=== PATIENT | male | born 1945 | race Caucasian/White ===

== ENCOUNTER 2017-01-14 10:39 | Inpatient (IN) | payer MEDICARE ==
[2017-01-09 14:56] VITALS: BMI 35.9
[~2017-01-14 10:39] MED LIST: LIDOCAINE 1% 20 ML VIAL (10MG/ML) FOR IV START INTRADERMA PRN
[2017-01-14] MEDS: PHENYLEPHRINE 10% OPHTH DROPS 5 ML BTL OP ONE ×4 (12:55→22:06)
[2017-01-14] MEDS: CYCLOPENTOLATE 1% OPHTH SOLN 2 ML BTL OP ONE ×4 (12:57→22:05)
[2017-01-14] MEDS: KETOROLAC 0.5% OPHTH DROPS 3 ML BTL OP ONE ×4 (12:59→22:06)
[2017-01-14] MEDS ORDERED: LIDOCAINE 1% 20 ML VIAL (10MG/ML) FOR IV START INTRADERMA ONE (13:21)
[2017-01-14] MEDS ORDERED: LACTATED RINGERS 1,000 ML IV ONE (13:28)
[2017-01-14 13:29] LABS: Glucose,Whole Blood 93 mg/dL (75-99)
[2017-01-14] MEDS ORDERED: fentaNYL (PF) 50 MCG/ML 2 ML AMP ONE (14:17)
[2017-01-14] MEDS ORDERED: MIDAZOLAM 2 MG/2 ML VIAL ONE (14:17)
[2017-01-14] MEDS ORDERED: ESMOLOL 100 MG/10 ML VIAL IV ONE (14:40)
[2017-01-14] MEDS ORDERED: METOPROLOL TARTRATE 5 MG/5 ML VIAL IVP ONE (14:50)
[2017-01-14] MEDS ORDERED: LABETALOL 5 MG/ML VIAL MDV IVP ONE (15:00)
[2017-01-14] MEDS ORDERED: LABETALOL SYRINGE 5 MG/ML IVP ONE ×2 (15:00→15:30)
--- NOTE | 2017-01-14 15:10 | P.OP ---
Date of Procedure: 01/14/17 Procedure(s) Performed: The patient was scheduled for cataract surgery of the left eye. He was brought into the operating room. It was noted during his short time in the operating room that his blood pressure was elevated and he entered into atrial fibrillation on his EKG. The anesthesiologist was summoned and the decision was made to cancel surgery, obtain a cardiology consult, and admit him to the floor for observation and/or treatment. Cataract surgery was therefore not performed. Pathology: none sent Condition: stable Disposition: floor
[2017-01-14] MEDS ORDERED: HEPARIN SODIUM,PORCINE 5,000 UNIT/ML 1 ML VIAL IV PRN (16:07)
[2017-01-14] MEDS ORDERED: HEPARIN SODIUM,PORCINE 5,000 UNIT/ML 1 ML VIAL IV ONE (16:07)
[2017-01-14] MEDS ORDERED: HEPARIN SODIUM,PORCINE/D5W PMX 25,000 UNIT in DEXTROSE/WATER 1 500ML.BAG IV SCH (16:15)
[2017-01-14] MEDS ORDERED: SODIUM CHLORIDE 0.9% 1,000 ML IV SCH (16:15)
[2017-01-14] MEDS: LACTATED RINGERS 1,000 ML IV SCH (17:02)
[2017-01-14 17:11] LABS: Basophils % (A) 0 %; CHCM 33.3; Eosinophils # (A) 0.1 k/uL (0-0.7); Eosinophils % (A) 1 %; HCT 44.2 % (39.0-53.0); HDW 2.68; Luc # (Auto) 0.11; Luc % (Auto) 1; Lymphocytes # (A) 0.8 k/uL (1.0-4.8); Lymphocytes % (A) 10 %; MCH 28.8 pg (25.0-35.0); MCHC 31.8 g/dL (31.0-37.0); MCV 90.6 fL (80.0-100.0); Monocytes # (A) 0.3 k/uL (0-1.0); Monocytes % (A) 4 %; Neutrophils # (A) 6.8 k/uL (1.3-7.7); Neutrophils % (A) 84 %; RBC 4.87 m/uL (4.30-5.90); RDW 15.5 % (11.5-15.5); WBC (Perox) 8.18
[2017-01-14 17:24] LABS: Anion Gap 9 mmol/L; Blood Urea Nitrogen 14 mg/dL (9-20); Calcium 8.7 mg/dL (8.4-10.2); Carbon Dioxide 26 mmol/L (22-30); Chloride 102 mmol/L (98-107); Glucose 108 mg/dL (74-99); Magnesium 1.8 mg/dL (1.6-2.3); Non-African American GFR(MDRD) >60 (>60 ml/min/1.73 sqM); Potassium 4.3 mmol/L (3.5-5.1); Sodium 137 mmol/L (137-145)
[2017-01-14 17:49] LABS: Prothrombin Time 66.6 sec (9.0-12.0)
[2017-01-14 18:19] LABS: INR 6.5 (<1.2); Partial Thromboplastin Time >200.0 sec (22.0-30.0)
[2017-01-14 19:03] LABS: Bilirubin, Delta 0.2 mg/dL (0.0-0.2); Total Bilirubin 0.8 mg/dL (0.2-1.3); Total Protein 6.9 g/dL (6.3-8.2)
[2017-01-14 19:05] LABS: INR 1.2 (<1.2); Partial Thromboplastin Time 42.1 sec (22.0-30.0); Prothrombin Time 11.7 sec (9.0-12.0)
[2017-01-14 19:50] LABS: Basophils % (A) 0 %; CHCM 33.7; Eosinophils # (A) 0.1 k/uL (0-0.7); Eosinophils % (A) 1 %; HCT 42.7 % (39.0-53.0); HDW 2.68; HGB 13.7 gm/dL (13.0-17.5); Luc # (Auto) 0.09; Luc % (Auto) 1; Lymphocytes % (A) 13 %; MCH 28.8 pg (25.0-35.0); MCHC 32.2 g/dL (31.0-37.0); MCV 89.5 fL (80.0-100.0); Monocytes # (A) 0.3 k/uL (0-1.0); Monocytes % (A) 4 %; Neutrophils % (A) 81 %; RBC 4.77 m/uL (4.30-5.90); RDW 15.3 % (11.5-15.5); WBC 7.4 k/uL (3.8-10.6); WBC (Perox) 7.87
[2017-01-14 19:58] LABS: ALT 33 U/L (21-72); AST 20 U/L (17-59); Alkaline Phosphatase 54 U/L (38-126); Anion Gap 8 mmol/L; Bilirubin, Delta 0.1 mg/dL (0.0-0.2); Blood Urea Nitrogen 15 mg/dL (9-20); Calcium 8.9 mg/dL (8.4-10.2); Carbon Dioxide 26 mmol/L (22-30); Chloride 103 mmol/L (98-107); Glucose 147 mg/dL (74-99); Non-African American GFR(MDRD) >60 (>60 ml/min/1.73 sqM); Potassium 4.1 mmol/L (3.5-5.1); Sodium 137 mmol/L (137-145); Total Bilirubin 0.7 mg/dL (0.2-1.3); Total Protein 7.1 g/dL (6.3-8.2)
[2017-01-14 20:06] LABS: INR 1.1 (<1.2); Partial Thromboplastin Time 30.1 sec (22.0-30.0); Prothrombin Time 11.1 sec (9.0-12.0)
[2017-01-14] MEDS: METOPROLOL TARTRATE 25 MG TAB PO SCH (20:12)
[2017-01-14] MEDS ORDERED: LABETALOL 5 MG/ML VIAL MDV IVP PRN (21:27)
[2017-01-14] MEDS ORDERED: TIMOLOL 0.5% OPHTH SOLN (PF) 0.2 ML DROPERETTE OP ONE (23:00)
[2017-01-14] MEDS ORDERED: GENTAMICIN/PREDNISOL AC OPHTH OINT 3.5GM OPHTHALMIC ONE (23:00)
[2017-01-14] MEDS ORDERED: BUPIVACAINE (PF) 0.75% 5 ML, LIDOCAINE 4% (PF) 5 ML, HYALURONIDASE, HUMAN RECOMB 150 UNIT MISCELLANE ONE ×3 (23:00)
[2017-01-15 03:18] LABS: Basophils % (A) 0 %; CHCM 32.5; Eosinophils # (A) 0.1 k/uL (0-0.7); Eosinophils % (A) 2 %; HDW 2.64; HGB 13.6 gm/dL (13.0-17.5); Luc # (Auto) 0.17; Luc % (Auto) 3; Lymphocytes # (A) 1.2 k/uL (1.0-4.8); Lymphocytes % (A) 21 %; MCH 29.7 pg (25.0-35.0); MCHC 33.2 g/dL (31.0-37.0); MCV 89.6 fL (80.0-100.0); Mean Platelet Volume 6.4; Monocytes # (A) 0.4 k/uL (0-1.0); Monocytes % (A) 7 %; Neutrophils # (A) 3.8 k/uL (1.3-7.7); Neutrophils % (A) 67 %; RBC 4.57 m/uL (4.30-5.90); RDW 14.6 % (11.5-15.5); WBC 5.6 k/uL (3.8-10.6); WBC (Perox) 6.17
[2017-01-15] MEDS: LACTATED RINGERS 1,000 ML IV SCH (03:51)
[2017-01-15] MEDS: METOPROLOL TARTRATE 25 MG TAB PO SCH (08:13)
--- NOTE | 2017-01-15 08:48 | P.CRDCN ---
History of Present Illness Consult date: 01/15/17 Requesting physician: Myrna Quintero Consult reason: hypertension, atrial fibrillation Chief complaint: Cataract surgery History of present illness: This is a 71-year-old gentleman with no documented history of hypertension, no diabetes, no hyperlipidemia, who came into the hospital to undergo cataract surgery of the left eye. He was brought to the operating room and noted to be significantly hypertensive, patient also was noted to be in atrial fibrillation. For this reason the surgery was deferred and a cardiology consultation was requested. Initial blood pressure in the OR 220/124, heart rate was 110 at that time. Patient was given labetalol and other antihypertensives in the recovery room. At the time of my examination, patient was in atrial fibrillation with a heart rate in the 90s, blood pressure at that time 168/90. He denied any chest pain, no palpitations, no dizziness or lightheadedness. He was transferred to the telemetry unit for monitoring. was started on a metoprolol tartrate 25 mg one tablet by mouth twice a day and given labetalol when necessary. He was also initiated on IV heparin for anticoagulation. Magnesium level I.8. TSH normal. Potassium 4.1, BUN 15, creatinine 0.7. CBC, white blood cell count 5.6, hemoglobin 13.6, platelet count 146. Past Medical History Past Medical History: No Reported History History of Any Multi-Drug Resistant Organisms: None Reported Past Surgical History: Hernia Repair Past Anesthesia/Blood Transfusion Reactions: No Reported Reaction Past Psychological History: No Psychological Hx Reported Smoking Status: Never smoker Past Alcohol Use History: None Reported Past Drug Use History: None Reported - Past Family History Mother Family Medical History: No Reported History Medications and Allergies Home Medications Medication Instructions Recorded Confirmed Type No Known Home Medications [No 01/09/17 01/14/17 History Known Home Medications] Allergies Allergy/AdvReac Type Severity Reaction Status Date / Time No Known Allergies Allergy Verified 01/14/17 17:37 Physical Exam Vitals: Vital Signs Temp Pulse Resp BP Pulse Ox 01/15/17 04:00 97.8 F 83 16 183/98 98 01/15/17 00:00 98.2 F 101 H 17 161/96 95 01/14/17 21:15 98 177/112 01/14/17 20:00 98.7 F 100 18 192/101 94 L 01/14/17 17:00 97.8 F 20 171/105 94 L 01/14/17 16:05 78 16 174/89 98 01/14/17 15:50 80 16 176/100 98 01/14/17 15:35 98 16 188/98 94 L 01/14/17 15:20 100 16 190/91 94 L 01/14/17 15:05 98 18 200/112 95 01/14/17 14:50 103 H 18 198/102 96 01/14/17 14:35 110 H 16 220/124 98 01/14/17 13:30 98.4 F 73 16 103/73 98 Intake and Output 01/14/17 01/15/17 01/15/17 22:59 06:59 14:59 Intake Total 590 216.333 Balance 590 216.333 Intake: IV 350 Intake, IV Titration 216.333 Amount Heparin Sodium,Porcine/ 216.333 D5w Pmx 25,000 unit In Dextrose/Water 1 500ml. bag @ 8.32 UNITS/KG/HR 20 mls/hr IV .Q24H [facility] Rx#: [id number] Oral 240 Other: Voiding Method Toilet Toilet # Voids 1 1 Weight 120.202 kg 132.3 kg PHYSICAL EXAMINATION: HEENT: Head is atraumatic, normocephalic. Pupils equal, round. Neck is supple. There is no elevated jugular venous pressure. HEART EXAMINATION: Heart S1, S2 normal. No murmur or gallop heard. CHEST EXAMINATION: Lungs are clear to auscultation and precussion. No chest wall tenderness is noted on palpation or with deep breathing. ABDOMEN: Soft, nontender. Bowel sounds are heard. No organomegaly noted. EXTREMITIES: 2+ peripheral pulses with no evidence of peripheral edema and no calf tenderness noted. NEUROLOGIC patient is awake, alert and oriented -3. . Results 01/15/17 02:31 01/14/17 19:24 Cardiac Enzymes 01/14/17 01/14/17 Range/Units 16:49 19:24 AST 20 20 (17-59) U/L Coagulation 01/14/17 01/14/17 01/14/17 Range/Units 16:49 18:34 19:24 PT 66.6 H 11.7 11.1 (9.0-12.0) sec APTT >200.0 H* 42.1 H 30.1 H (22.0-30.0) sec 01/15/17 Range/Units 02:31 PT (9.0-12.0) sec APTT 27.2 (22.0-30.0) sec CBC 01/14/17 01/14/17 01/15/17 Range/Units 16:49 19:24 02:31 WBC 8.0 7.4 5.6 (3.8-10.6) k/uL RBC 4.87 4.77 4.57 (4.30-5.90) m/uL Hgb 14.0 13.7 13.6 (13.0-17.5) gm/dL Hct 44.2 42.7 41.0 (39.0-53.0) % Plt Count 138 L 145 L 146 L (150-450) k/uL Comprehensive Metabolic Panel 01/14/17 01/14/17 01/14/17 Range/Units 16:49 16:49 19:24 Sodium 137 137 (137-145) mmol/L Potassium 4.3 4.1 (3.5-5.1) mmol/L Chloride 102 103 (98-107) mmol/L Carbon Dioxide 26 26 (22-30) mmol/L BUN 14 15 (9-20) mg/dL Creatinine 0.79 0.77 (0.66-1.25) mg/dL Glucose 108 H 147 H (74-99) mg/dL Calcium 8.7 8.9 (8.4-10.2) mg/dL Unconjugated Bilirubin 0.6 0.6 (0.0-1.1) mg/dL AST 20 20 (17-59) U/L ALT 29 33 (21-72) U/L Alkaline Phosphatase 59 54 (38-126) U/L Total Protein 6.9 7.1 (6.3-8.2) g/dL Albumin 3.9 4.1 (3.5-5.0) g/dL Current Medications Generic Name Dose Route Start Last Admin Trade Name Freq PRN Reason Stop Dose Admin Heparin Sodium (Porcine) 0 unit 01/14/17 16:07 01/15/17 04:28 Heparin IV 4,000 unit PER PROTOCOL PRN Administration Low PTT Protocol Lactated Ringer's 1,000 mls @ 20 mls/hr 01/14/17 05:40 01/15/17 03:51 Lactated Ringers IV Not Given .Q24H DON Heparin Sodium/Dextrose 25,000 500 mls @ 20 mls/hr 01/14/17 16:15 01/15/17 04 :29 unit/ IV Solution IV 11.32 units/kg/hr .Q24H [facility] 27.21 mls/hr Protocol Titration 8.32 UNITS/KG/HR Sodium Chloride 1,000 mls @ 20 mls/hr 01/14/17 16:15 01/14/17 17:05 Saline 0.9% IV 20 mls/hr .Q24H DON Administration Labetalol HCl 20 mg 01/14/17 21:27 01/14/17 22:00 Trandate IVP 20 mg Q6H PRN Administration Blood Pressure - High Lidocaine HCl 0.1 ml 01/14/17 05:40 .Xylocaine 1% Inj (10mg/Ml) For Iv Start INTRADERMA PER PROTOCOL PRN IV Start Metoprolol Tartrate 25 mg 01/14/17 21:00 01/15/17 08:13 Lopressor PO 25 mg BID DON Administration Intake and Output 01/14/17 01/15/17 01/15/17 22:59 06:59 14:59 Intake Total 590 216.333 Balance 590 216.333 Intake: IV 350 Intake, IV Titration 216.333 Amount Heparin Sodium,Porcine/ 216.333 D5w Pmx 25,000 unit In Dextrose/Water 1 500ml. bag @ 8.32 UNITS/KG/HR 20 mls/hr IV .Q24H [facility] Rx#: [id number] Oral 240 Other: Voiding Method Toilet Toilet # Voids 1 1 Weight 120.202 kg 132.3 kg 01/15/17 02:31 01/14/17 19:24 EKG Interpretations (text) EKG showed atrial fibrillation with moderately rapid ventricular response Assessment and Plan Plan: Assessment and plan #1 Hypertensive urgency #2 atrial fibrillation, of new onset, unsure at this point if it is paroxysmal or chronic. #3 no prior documented history of hypertension, no diabetes, no hyperlipidemia, patient is a nonsmoker Plan TSH is normal, we will obtain an echocardiogram with Doppler study. Increase Lopressor to 50 mg one tablet by mouth twice a day and add Norvasc to the patient's medication regime for more optimal blood pressure control. We will also check a fasting lipid profile on the patient. We will check to see if the patient has coverage for one of the newer anticoagulants, in the meantime we will continue IV heparin and speak Dr. Cain regarding proceeding with cataract surgery before initiating oral anticoagulation. Further recommendations to follow. DNP note has been reviewed, I agree with a documented findings and plan of care. Patient was seen and examined.
[2017-01-15] MEDS ORDERED: METOPROLOL TARTRATE 25 MG TAB PO ONE (09:00)
[2017-01-15] MEDS ORDERED: amLODIPine 5 MG TAB PO SCH (09:00)
[2017-01-15 10:38] VITALS: PULSE 84; RESP 18; TEMP 96.7
[2017-01-15 11:38] VITALS: BP 175/93
[2017-01-15] MEDS ORDERED: APIXABAN 5 MG TAB PO SCH (12:45)
[2017-01-15 13:19] LABS: Hemoglobin A1C 5.7 % (4.2-6.1)
--- NOTE | 2017-01-15 14:09 | P.HPIM ---
History of Present Illness Patient is a 71-year-old gentleman came in for elective cataract surgery found to have highly elevated blood pressure and the found to be in atrial fibrillation patient is morbidly obese does not appear to follow with primary care physician that often, patient is presently rate controlled still in A. fib patient was on heparin patient is started on your anticoagulation Eliquis by cardiology because of his Kishore Vasc score being 2 and patient is awaiting echo cardiac exam, patient was started on amlodipine patient blood pressures have come down a little bit but still is an 170 systolic patient will be discharged on metoprolol and Norvasc and new anti-correlation as mentioned above area patient's symptoms. The, denied any chest pain, nausea, vomiting up electrolytes are essentially within normal limits Review of Systems REVIEW OF SYSTEMS: CONSTITUTIONAL: No fever, no malaise, no fatigue. HEENT: No recent visual problems or hearing problems. Denied any sore throat. CARDIOVASCULAR: No chest pain, orthopnea, PND, no palpitations, no syncope. PULMONARY: No shortness of breath, no cough, no hemoptysis. GASTROINTESTINAL: No diarrhea, no nausea, no vomiting, no abdominal pain. Normoactive bowel sounds. NEUROLOGICAL: No headaches, no weakness, no numbness. HEMATOLOGICAL: Denies any bleeding or petechiae. GENITOURINARY: Denies any burning micturition, frequency, or urgency. MUSCULOSKELETAL/RHEUMATOLOGICAL: Denies any joint pain, swelling, or any muscle pain. ENDOCRINE: Denies any polyuria or polydipsia. The rest of the 14-point review of systems is negative. Past Medical History Past Medical History: No Reported History History of Any Multi-Drug Resistant Organisms: None Reported Past Surgical History: Hernia Repair Past Anesthesia/Blood Transfusion Reactions: No Reported Reaction Past Psychological History: No Psychological Hx Reported Smoking Status: Never smoker Past Alcohol Use History: None Reported Past Drug Use History: None Reported - Past Family History Mother Family Medical History: No Reported History Medications and Allergies Home Medications Medication Instructions Recorded Confirmed Type Apixaban [Eliquis] 5 mg PO BID #60 tab 01/15/17 Rx Metoprolol Tartrate [Lopressor] 50 mg PO BID #60 tab 01/15/17 Rx amLODIPine [Norvasc] 5 mg PO DAILY #30 tab 01/15/17 Rx Allergies Allergy/AdvReac Type Severity Reaction Status Date / Time No Known Allergies Allergy Verified 01/14/17 17:37 Physical Exam Vitals: Vital Signs Temp Pulse Resp BP Pulse Ox 01/15/17 08:00 96.7 F L 84 18 175/93 96 01/15/17 04:00 97.8 F 83 16 183/98 98 01/15/17 00:00 98.2 F 101 H 17 161/96 95 01/14/17 21:15 98 177/112 01/14/17 20:00 98.7 F 100 18 192/101 94 L 01/14/17 17:00 97.8 F 20 171/105 94 L 01/14/17 16:05 78 16 174/89 98 01/14/17 15:50 80 16 176/100 98 01/14/17 15:35 98 16 188/98 94 L 01/14/17 15:20 100 16 190/91 94 L 01/14/17 15:05 98 18 200/112 95 01/14/17 14:50 103 H 18 198/102 96 01/14/17 14:35 110 H 16 220/124 98 Intake and Output 01/14/17 01/15/17 01/15/17 22:59 06:59 14:59 Intake Total 590 216.333 240 Balance 590 216.333 240 Intake: IV 350 Intake, IV Titration 216.333 Amount Heparin Sodium,Porcine/ 216.333 D5w Pmx 25,000 unit In Dextrose/Water 1 500ml. bag @ 8.32 UNITS/KG/HR 20 mls/hr IV .Q24H [facility] Rx#: [id number] Oral 240 240 Other: Voiding Method Toilet Toilet Toilet # Voids 1 1 Weight 120.202 kg 132.3 kg PHYSICAL EXAMINATION: GENERAL: The patient is alert and oriented x3, not in any acute distress. Well developed, well nourished. HEENT: Pupils are round and equally reacting to light. EOMI. No scleral icterus. No conjunctival pallor. Normocephalic, atraumatic. No pharyngeal erythema. No thyromegaly. CARDIOVASCULAR: S1 and S2 present. No murmurs, rubs, or gallops. PULMONARY: Chest is clear to auscultation, no wheezing or crackles. ABDOMEN: Soft, nontender, nondistended, normoactive bowel sounds. No palpable organomegaly. MUSCULOSKELETAL: No joint swelling or deformity. EXTREMITIES: No cyanosis, clubbing, or pedal edema. NEUROLOGICAL: Gross neurological examination did not reveal any focal deficits. SKIN: No rashes. Results CBC & Chem 7: 01/15/17 02:31 01/14/17 19:24 Labs: Abnormal Lab Results - Last 24 Hours (Table) 01/14/17 01/14/17 01/14/17 Range/Units 16:49 16:49 16:49 Plt Count 138 L (150-450) k/uL Lymphocytes # 0.8 L (1.0-4.8) k/uL PT 66.6 H (9.0-12.0) sec INR 6.5 H* (<1.2) APTT >200.0 H* (22.0-30.0) sec Glucose 108 H (74-99) mg/dL 01/14/17 01/14/17 01/14/17 Range/Units 18:34 19:24 19:24 Plt Count 145 L (150-450) k/uL Lymphocytes # (1.0-4.8) k/uL PT (9.0-12.0) sec INR 1.2 H (<1.2) APTT 42.1 H (22.0-30.0) sec Glucose 147 H (74-99) mg/dL 01/14/17 01/15/17 01/15/17 Range/Units 19:24 02:31 10:33 Plt Count 146 L (150-450) k/uL Lymphocytes # (1.0-4.8) k/uL PT (9.0-12.0) sec INR (<1.2) APTT 30.1 H 33.2 H (22.0-30.0) sec Glucose (74-99) mg/dL Thrombosis Risk Factor Assmnt - Choose All That Apply Any of the Below Risk Factors Present?: Yes Each Factor Represents 1 point: Age 41-60 years, Obesity (BMI >25) Other Risk Factors: Yes Each Risk Factor Represents 2 Points: Age 61-74 years Thrombosis Risk Factor Assessment Total Risk Factor Score: 4 Thrombosis Risk Factor Assessment Level: Moderate Risk Assessment and Plan Plan: #1 atrial fibrillation: Rate controlled at this point of time patient will be started on the Neurontin to correlation will be discharged today. #2 hypertension Diagnosis was never diagnosed with hypertension patient will be discharged on amlodipine. #3 morbid obesity counseling was provided patient will benefit from sleep study as an outpatient. #4 we'll rule out the type 2 diabetes mellitus
--- NOTE | 2017-01-15 14:12 | P.DS ---
Providers Date of admission: 01/14/17 15:38 Attending physician: Myrna Quintero Consults: 01/14/17 15:19 Consult Physician Stat Consulting Provider: Amauri Ferraro Reason/Comments: IRR. HEART RHYTHM Do you want consulting provider notified?: Yes Primary care physician: Stated None Hospital Course: Please refer to HPI Plan - Discharge Summary New Discharge Prescriptions: New amLODIPine [Norvasc] 5 mg PO DAILY #30 tab Metoprolol Tartrate [Lopressor] 50 mg PO BID #60 tab Apixaban [Eliquis] 5 mg PO BID #60 tab Discharge Medication List Apixaban [Eliquis] 5 mg PO BID #60 tab 01/15/17 [Rx] Metoprolol Tartrate [Lopressor] 50 mg PO BID #60 tab 01/15/17 [Rx] amLODIPine [Norvasc] 5 mg PO DAILY #30 tab 01/15/17 [Rx] Follow up Appointment(s)/Referral(s): Chelle Cruz FNPBC [REFERRING] - 01/20/17 1:15 pm Guillermo Faustin DO [REFERRING] - 1 Week Patient Instructions/Handouts: Atrial Fibrillation (DC), Hypertension (DC) Activity/Diet/Wound Care/Special Instructions: 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 Stop eliquis 3 days prior to eye surgery. Please call and schedule follow up appointment with Dr. Faustin. Also call Dr. Edwards office to reschedule catarac removal and discuss new medications prescribed. Discharge Disposition: HOME SELF-CARE
--- NOTE | 2017-01-15 14:44 | P.PN ---
Subjective Principal diagnosis: Hypertension and atrial fibrillation This is a 71-year-old gentleman with no documented history of hypertension, no diabetes, no hyperlipidemia, who came into the hospital to undergo cataract surgery of the left eye. He was brought to the operating room and noted to be significantly hypertensive, patient also was noted to be in atrial fibrillation. For this reason the surgery was deferred and a cardiology consultation was requested. Initial blood pressure in the OR 220/124, heart rate was 110 at that time. Patient was given labetalol and other antihypertensives in the recovery room. At the time of my examination, patient was in atrial fibrillation with a heart rate in the 90s, blood pressure at that time 168/90. He denied any chest pain, no palpitations, no dizziness or lightheadedness. He was transferred to the telemetry unit for monitoring. was started on a metoprolol tartrate 25 mg one tablet by mouth twice a day and given labetalol when necessary. He was also initiated on IV heparin for anticoagulation. Magnesium level I.8. TSH normal. Potassium 4.1, BUN 15, creatinine 0.7. CBC, white blood cell count 5.6, hemoglobin 13.6, platelet count 146. 01/15/2017 Patient seen and examined this morning, blood pressure 175/90, heart rate in the 80s, continues to be in atrial fibrillation, on heparin. WBC 5.3, hemoglobin 13.6, platelet count 146, TSH normal. Echo is pending. We will add Norvasc 5 mg daily to the patient's medication regime, continue Lopressor 25 mg by mouth twice a day. Await results of echocardiogram with Doppler study. We will also check to see with the eye doctor whether or not to perform the cataract surgery while on heparin, if he chooses to wait, we will initiate Eliquis 5 twice a day. We would recommend that the patient stay in the hospital until his blood pressure normalizes. Objective - Vital Signs Vital signs: Vital Signs Temp 96.7 F L 01/15/17 08:00 Pulse 84 01/15/17 08:00 Resp 18 01/15/17 08:00 BP 175/93 01/15/17 08:00 Pulse Ox 96 01/15/17 08:00 Intake & Output 01/14/17 01/15/17 01/15/17 18:59 06:59 18:59 Intake Total 650 456.333 240 Output Total 0 Balance 650 456.333 240 Weight 120.202 kg 132.3 kg Intake: IV 650 Intake, IV Titration 216.333 Amount Heparin Sodium,Porcine/ 216.333 D5w Pmx 25,000 unit In Dextrose/Water 1 500ml. bag @ 8.32 UNITS/KG/HR 20 mls/hr IV .Q24H [facility] Rx#: [id number] Oral 240 240 Output: Estimated Blood Loss 0 Other: Voiding Method Toilet Toilet # Voids 1 1 - Exam PHYSICAL EXAMINATION: HEENT: Head is atraumatic, normocephalic. Pupils equal, round. Neck is supple. There is no elevated jugular venous pressure. HEART EXAMINATION: Heart S1, S2 normal. No murmur or gallop heard. CHEST EXAMINATION: Lungs are clear to auscultation and precussion. No chest wall tenderness is noted on palpation or with deep breathing. ABDOMEN: Soft, nontender. Bowel sounds are heard. No organomegaly noted. EXTREMITIES: 2+ peripheral pulses with no evidence of peripheral edema and no calf tenderness noted. NEUROLOGIC patient is awake, alert and oriented -3. - Labs CBC & Chem 7: 01/15/17 02:31 01/14/17 19:24 Labs: Abnormal Lab Results - Last 24 Hours (Table) 01/14/17 01/14/17 01/14/17 Range/Units 16:49 16:49 16:49 Plt Count 138 L (150-450) k/uL Lymphocytes # 0.8 L (1.0-4.8) k/uL PT 66.6 H (9.0-12.0) sec INR 6.5 H* (<1.2) APTT >200.0 H* (22.0-30.0) sec Glucose 108 H (74-99) mg/dL 01/14/17 01/14/17 01/14/17 Range/Units 18:34 19:24 19:24 Plt Count 145 L (150-450) k/uL Lymphocytes # (1.0-4.8) k/uL PT (9.0-12.0) sec INR 1.2 H (<1.2) APTT 42.1 H (22.0-30.0) sec Glucose 147 H (74-99) mg/dL 01/14/17 01/15/17 01/15/17 Range/Units 19:24 02:31 10:33 Plt Count 146 L (150-450) k/uL Lymphocytes # (1.0-4.8) k/uL PT (9.0-12.0) sec INR (<1.2) APTT 30.1 H 33.2 H (22.0-30.0) sec Glucose (74-99) mg/dL Assessment and Plan Plan: Assessment and plan #1 Hypertensive urgency #2 atrial fibrillation, of new onset, unsure at this point if it is paroxysmal or chronic. #3 no prior documented history of hypertension, no diabetes, no hyperlipidemia, patient is a nonsmoker Plan TSH is normal, we will review the echocardiogram with Doppler study. Add Norvasc to the patient's medication regime. We will also check a fasting lipid profile on the patient. We will check to see if the patient has coverage for one of the newer anticoagulants, in the meantime we will continue IV heparin and speak Dr. Cain regarding proceeding with cataract surgery before initiating oral anticoagulation. Would like to observe the patient in the hospital until a blood pressure stabilizes. Further recommendations to follow. DNP note has been reviewed, I agree with a documented findings and plan of care. Patient was seen and examined.
[2017-01-15] MEDS ORDERED: METOPROLOL TARTRATE 50 MG TAB PO SCH (21:00)
--- NOTE | 2017-01-16 10:11 | ECHOF ---
Referral Reason:new afib MEASUREMENTS -------- HEIGHT: 182.9 cm WEIGHT: 132.0 kg BP: 175/93 RVIDd: 4.2 cm (< 3.3) IVSd: 1.5 cm (0.6 - 1.1) LVIDd: 5.0 cm (3.9 - 5.3) LVPWd: 1.5 cm (0.6 - 1.1) IVSs: 2.1 cm LVIDs: 3.8 cm LVPWs: 1.8 cm LAESV Index (A-L): 39.49 ml/m Ao Diam: 4.0 cm (2.0 - 3.7) AV Cusp: 1.4 cm (1.5 - 2.6) LA Diam: 4.6 cm (2.7 - 3.8) MV E Darek: 1.50 m/s MV DecT: 171 ms MV A Darek: 0.00 m/s MV E/A Ratio: 1080 RAP: 5.00 mmHg RVSP: 26.52 mmHg FINDINGS -------- Sinus rhythm. This was a technically difficult study with suboptimal views. The left ventricular size is normal. There is moderate concentric left ventricular hypertrophy. Overall left ventricular systolic function is low-normal with, an EF between 50 - 55 %. The right ventricle is severely enlarged. The right ventricular systolic function is at the low end of normal. LA is severely dilated >40 ml/m2 RA appears enlarged. 1.5mg of Definity was utilized for enhancement of images Aortic valve is trileaflet and is mildly thickened. Trace to mild aortic regurgitation. There is no evidence of aortic stenosis. The mitral valve leaflets are mildly thickened. There is trace to mild mitral regurgitation. Trace tricuspid regurgitation present. Right ventricular systolic pressure is normal at < 35 mmHg. There is no evidence of pulmonary hypertension. The pulmonic valve was not well visualized. The aortic root size is normal. The inferior vena cava is mildly dilated. The pericardium is normal. There is no pericardial effusion. CONCLUSIONS -------- 1. Sinus rhythm. 2. 1.5mg of Definity was utilized for enhancement of images 3. Aortic valve is trileaflet and is mildly thickened. 4. Trace to mild aortic regurgitation. 5. The mitral valve leaflets are mildly thickened. 6. There is trace to mild mitral regurgitation. 7. Trace tricuspid regurgitation present. 8. Right ventricular systolic pressure is normal at < 35 mmHg. 9. There is no evidence of pulmonary hypertension. 10. The pulmonic valve was not well visualized. 11. The aortic root size is normal. 12. This was a technically difficult study with suboptimal views. 13. The inferior vena cava is mildly dilated. 14. There is no pericardial effusion. 15. The left ventricular size is normal. 16. There is moderate concentric left ventricular hypertrophy. 17. Overall left ventricular systolic function is low-normal with, an EF between 50 - 55 %. 18. The right ventricle is severely enlarged. 19. The right ventricular systolic function is at the low end of normal. 20. LA is severely dilated >40 ml/m2 21. RA appears enlarged. ANIMAL SCIENTIST: Ricky Varner RDCS
== END 2017-01-15 13:32 | disposition home or self-care (01) | DRG 305 ==
LOC: OR 10:39 → 6SEL 15:38
PROVIDERS: ADMIT Internal Medicine; ATTEND Internal Medicine
DX: I16.0 Hypertensive urgency (principal); E66.01 Morbid (severe) obesity due to excess calories; I48.91 Unspecified atrial fibrillation; I10 Essential (primary) hypertension; H26.9 Unspecified cataract; Z53.09 Procedure and treatment not carried out because of other contraindication; Z98.890 Other specified postprocedural states; Z68.39 Body mass index [BMI] 39.0-39.9, adult
CPT/HCPCS: 80048; 80076; 83036; 83735; 84439; 84443; 85025; 85610; 85730; 93005; 93306

== ENCOUNTER → 2019-08-06 | Outpatient (CLI) | payer MEDICARE ==
--- NOTE | 2019-08-09 10:03 | PE ---
EXAMINATION TYPE: PET CT fusion skull to thigh DATE OF EXAM: 08/06/2019 CLINICAL HISTORY: 73-year-old male with B-cell lymphoma diagnosed July 2019 via right-sided neck lym ph node biopsy, initial staging. TECHNIQUE: Following the intravenous administration of 12.6 mCi of F-18 FDG, whole body images are performed from the skull base to the midthigh. Images are reviewed on the computer in the coronal, a xial, and sagittal planes. Reconstructed rotating images are created on independent workstation and reviewed on the computer. A localization and attenuation correction CT is performed in conjunction with the PET scan. Glucose level: 82 mg/dL COMPARISON: None. FINDINGS: PET: Focal intense uptake involving the palatine tonsillar soft tissues, max SUV 6.7. There is cervical lymphadenopathy on both sides throughout all levels of the neck measuring up to 3.2 cm on the right. Right-sided base of the neck/supraclavicular lymph nodes measure up to 2.6 cm. Max SUV 4.3. Extensive bilateral axillary lymphadenopathy. Individual lymph nodes measure up to 3.7 cm on the righ t and 3.0 cm on the left, max SUV.6. Scattered nonenlarged or borderline sized mediastinal lymph nodes are noted measuring up to 1.5 cm wi th either no significant or trace increased uptake, max SUV 2.5 in the subcarinal region. Abnormal soft tissue thickening along the left intramammary chain measuring up to 4.0 cm wide and ext ending from the manubrium down to the lower third aspect of the sternal body shows intense FDG uptake , max SUV 3.7. Mildly enlarged retrocrural lymph nodes measuring up to 1.0 cm show no discrete FDG uptake. Average liver SUV 1.7. There is central radha mesentery with numerous nonenlarged to mildly enlarged mesenteric lymph nodes that show either no significant or mild increased uptake. Larger right paramedian mid abdominal mesenteric lymph node measures 1.8 cm, max SUV 8.3, axial image 172. A right paramedian mesenteric tila mass measuring 7.2 x 6.5 cm shows intense uptake, max SUV 11.3. Numerous enlarged retroperitoneal lymph nodes show mild increased uptake with individual nodes measur ing up to 2.7 cm. Greater size and number of lymph nodes along the bilateral external iliac chains are noted with a nor mal mass along the proximal aspect of the left common iliac chain measuring up to 6.6 x 2.2 cm, max S UV 3.7. Bilateral external iliac chain lymph nodes measure up to 3.9 x 2.2 cm on the left, axial image 21, an d have variable moderate to intense uptake, max SUV 5.0. Right obturator chain lymph node, axial image 238 measures 1.2 cm, max SUV 2.7. Nonenlarged to mildly enlarged bilateral inguinal and femoral canal lymph nodes show variable FDG upt freda measuring up to 2.6 x 1.9 cm along the lower left inguinal region, axial image 265. Max SUV 4.6. ATTENUATION CORRECTION CT: Some mild lobulated mucosal thickening floor of the right maxillary sinus. Mastoid air cells well pne umatized. Orotracheal, appears clear. Heart mildly enlarged without pericardial effusion. LAD calcifications are noted. Large caliber to th e ascending aorta 4.5 cm. Bovine configuration to the aortic arch. Strandy areas of atelectasis in th e lungs. No dilated small bowel, free fluid, or free air. No significant stool burden. Left-sided colonic dive rticulosis. Mildly redundant sigmoid colon. No pericolic inflammatory change. Moderate atheroscleroti c calcifications abdominal aorta. Bladder collapsed with moderate circumferential wall thickening. Prostate gland measures 4.9 cm wide. No abnormal fluid collection in the pelvis. Bones: Mild degenerative changes at the hips. Degenerative disc disease mid to lower lumbar spine and endplate spondylosis mid to lower thoracic spine. No osseous destructive process. IMPRESSION: 1. Lymphomatous involvement throughout the neck, axilla, left internal mammary chain (tila mass 4.0 cm), retroperitoneum, mesentery (tila mass measuring 7.2 cm), bilateral iliac chains (conglomerate n odal mass proximal left common iliac chain 6.6 cm), inguinal, and upper femoral chains. 2. Some areas of lymphomatous involvement such as within the mediastinum and some areas of the mesent sara show only mild uptake while other lymph nodes in the neck, axilla, pelvis, and tila masses menti oned above show variable moderate to intense uptake. 3. Incidental: Ascending aortic aneurysm at 4.5 cm. CAD. Left-sided colonic diverticulosis. Circumfer ential bladder wall thickening could represent chronic bladder wall hypertrophy or cystitis.
== END | disposition home or self-care (01) ==
LOC: RADPETMAIN 11:31
PROVIDERS: ATTEND Nurse Practitioner Family
DX: R22.1 Localized swelling, mass and lump, neck (principal); R22.2 Localized swelling, mass and lump, trunk; K57.30 Diverticulosis of large intestine without perforation or abscess without bleeding; I25.10 Atherosclerotic heart disease of native coronary artery without angina pectoris; C85.18 Unspecified B-cell lymphoma, lymph nodes of multiple sites
CPT/HCPCS: 78815; A9552

== ENCOUNTER → 2020-05-06 | Outpatient (CLI) | payer MEDICARE ==
--- NOTE | 2020-05-08 07:47 | PE ---
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 TECHNIQUE: Following the intravenous administration of 13.9 mCi of F-18 FDG, whole body images are p erformed from the skull base to the midthigh. Images are reviewed on the computer in the coronal, ax ial, and sagittal planes. Reconstructed rotating images are created on independent workstation and r eviewed on the computer. A localization and attenuation correction CT is performed in conjunction w ith the PET scan. SCAN: Subsequent Scan FINDINGS: Mean SUV mediastinum: 0.76 Mean SUV liver: 1.67 SKULL BASE AND NECK: Marked interval improvement in hypermetabolic uptake and size of bilateral mult ilevel neck adenopathy, some residual prominent hypermetabolic left sided lymph nodes are present at level of hyoid bone for reference is 2.8 x 0.8 cm lymph node axial image 53, max SUV is 3.03. CHEST, MEDIASTINUM, AND HILAR REGION: Prominent bilateral axillary lymph nodes diminished in size and max SUV, subcentimeter lymph nodes with max SUV less than 2.5 remain present. No abnormal enlarged o r persistent abnormal hypermetabolic thoracic lymph nodes seen. ABDOMEN AND PELVIS: No suspicious residual or new hypermetabolic intra-abdominal or pelvic lymph node s or masses. Large lesion right mesentery may be residual subcentimeter lesion axial image 178 is cur rently ametabolic. A few prominent bilateral iliac and groin lymph nodes left greater than right holly in present without suspicious hypermetabolic uptake. Size markedly improved. OSSEOUS STRUCTURES: No new areas of abnormal hypermetabolic uptake. OTHER CT: [id number] calcified plaque left carotid bulb level. Moderate coronary artery calcifi cation. Sigmoid colonic diverticulosis. Facet arthropathy lower lumbar spine. Mildly enlarged prostate gland. IMPRESSION: Significant positive treatment response as detailed above.
== END | disposition home or self-care (01) ==
LOC: RADPETMAIN 08:41
PROVIDERS: ATTEND Internal Medicine Hematology & Oncology
DX: C83.10 Mantle cell lymphoma, unspecified site (principal); Z98.890 Other specified postprocedural states
CPT/HCPCS: 78815; A9552

== ENCOUNTER → 2021-05-04 | Outpatient (CLI) | payer MEDICARE ==
--- NOTE | 2021-05-07 08:49 | PE ---
EXAMINATION TYPE: PET CT fusion skull to thigh DATE OF EXAM: 05/04/2021 COMPARISON: Prior PET/CT May 06 2020 and older study August 06, 2019 HISTORY: Mantle cell lymphoma diagnosed June 2019 In neck progress study. TECHNIQUE: Following the intravenous administration of 9.98 mCi of F-18 FDG, whole body images are p erformed from the skull base to the midthigh. Images are reviewed on the computer in the coronal, ax ial, and sagittal planes. Reconstructed rotating images are created on independent workstation and r eviewed on the computer. A localization and attenuation correction CT is performed in conjunction w ith the PET scan. Dedicated PET/CT imaging of the neck. Blood glucose level equals 90. SCAN: Subsequent Scan FINDINGS: Mean SUV mediastinum: 1.07 Mean SUV liver: 1.67 SKULL BASE AND NECK: Worsening left neck adenopathy as there is increasing hypermetabolic uptake in t he left neck lymph nodes beginning at level of hyoid bone extending inferiorly to the supraclavicular region. For reference prominent anterior 1.5 x 1.3 cm lymph node at level of vocal cord axial image 74 is noted. The max SUV is 5.68 on current study. CHEST, MEDIASTINUM, AND HILAR REGION: Continued improved bilateral axillary lymph nodes. No enlarged or hypermetabolic lymph nodes on current study. New right supraclavicular hypermetabolic 2.3 x 1.6 cm lymph node axial image 67, Max SUV is 2.95. There are 2 new adjacent enlarged subcarinal lymph nodes , left-sided lymph node measures 2.4 x 1.7 cm axial image 105, max SUV is 3.59. ABDOMEN AND PELVIS: Recurrent hypermetabolic lymph nodes in the retroperitoneum. For reference there is anterior left periaortic 2.9 x 2.4 cm lymph node axial image 190, max SUV is 7.7 cm. Additional ab normal hypermetabolic lymph nodes along the common iliac artery bilaterally greater on the left are n ow present. For reference there is 3.4 x 3.7 cm hypermetabolic left-sided external iliac chain lymph node axial image 204 posteriorly, max SUV is 20.58. Left external iliac chain lymph node is hypermeta bolic uptake max SUV 13.9 on axial image 222. Suspicious hypermetabolic soft tissue focus right upper to mid abdomen anteriorly max SUV is 7.72 on axial image 180 at level of a near a bowel loop, cannot exclude adjacent peritoneal lesion or lymph n ode versus nonspecific bowel uptake No hypermetabolic groin lymph nodes bilaterally. OSSEOUS STRUCTURES: Hypermetabolic uptake right lateral mid cervical elements axial image 46 current study, max SUV is 3.93. Finding favors product of degenerative change without additional osseous lesi ons. OTHER CT: [id number]-sv-[id number] calcified plaque left carotid bulb level. Mild to moderate Moderate rainey ry artery calcification. Mitral annular calcifications redemonstrated. Sigmoid colonic diverticulosis redemonstrated. Facet arthropathy lower lumbar spine. Mildly enlarged prostate gland. [id number] concentric wall thickening bladder presumed related to outlet obstru ction from BPH IMPRESSION: Recurrent hypermetabolic adenopathy above and below diaphragm noted.
== END | disposition home or self-care (01) ==
LOC: RADPETMAIN 12:38
PROVIDERS: ATTEND Internal Medicine Hematology & Oncology
DX: C83.18 Mantle cell lymphoma, lymph nodes of multiple sites (principal)
CPT/HCPCS: 78815; A9552

== ENCOUNTER → 2021-09-07 | Outpatient (CLI) | payer MEDICARE ==
--- NOTE | 2021-09-07 11:07 | PE ---
EXAMINATION TYPE: PET CT fusion skull to thigh DATE OF EXAM: 09/07/2021 COMPARISON: Prior PET/CT May 04, 2021 and older studies HISTORY: Mantle cell lymphoma diagnosed 2019 completed chemotherapy August 28, 2021. TECHNIQUE: Following the intravenous administration of 10.47 mCi of F-18 FDG, whole body images are performed from the skull base to the midthigh. Images are reviewed on the computer in the coronal, a xial, and sagittal planes. Reconstructed rotating images are created on independent workstation and reviewed on the computer. A localization and attenuation correction CT is performed in conjunction with the PET scan. Blood glucose level equals 100 SCAN: Subsequent Scan FINDINGS: SKULL BASE AND NECK: Positive treatment response with no persistent or new hypermetabolic lymph nodes in the neck bilaterally. CHEST, MEDIASTINUM, AND HILAR REGION: No enlarged or hypermetabolic lymph nodes on current study. R esolved right supraclavicular slightly hypermetabolic enlarged lymph node is noted. ABDOMEN AND PELVIS: Resolved hypermetabolic lymph nodes in the retroperitoneum. Persistent prominent AP window lymph node axial image 181 measures 1.3 x 1.0 cm is diminished in size from 3.0 x 2.4 cm pr ior study. Resolved iliac chain adenopathy in the bilateral pelvis. Largest lymph node left pelvis is now subcentimeter in size. No new hypermetabolic lymph nodes in the abdomen or pelvis. Prior visualized hypermetabolic soft tissue focus right upper to mid abdomen anteriorly now not clear ly identified. No new hypermetabolic groin lymph nodes bilaterally. OSSEOUS STRUCTURES: Hypermetabolic uptake right lateral mid cervical elements axial image 46 current study, max SUV is 3.93. Finding favors product of degenerative change without additional osseous lesi ons. OTHER CT: [id number] calcified plaque left carotid bulb level. Mild to moderate coronary artery calcification redemonstrated. New left subclavian Mediport catheter terminates at the brachiocephali c confluence. Mitral annular calcifications redemonstrated. Mild cardiomegaly redemonstrated. Diverticula in the left and sigmoid colon redemonstrated. Mildly enlarged prostate gland again seen. [id number] concentric wall thickening bladder and poorly distended bladder redemonstrated IMPRESSION: Complete positive treatment response as detailed above. Resolved hypermetabolic adenopath y. No new hypermetabolic adenopathy seen.
== END | disposition home or self-care (01) ==
LOC: RADPETMAIN 07:30
DX: C83.10 Mantle cell lymphoma, unspecified site (principal); K57.30 Diverticulosis of large intestine without perforation or abscess without bleeding; N40.0 Benign prostatic hyperplasia without lower urinary tract symptoms; N32.89 Other specified disorders of bladder
CPT/HCPCS: 78815; A9552

== ENCOUNTER → 2021-12-07 | Outpatient (CLI) | payer MEDICARE ==
--- NOTE | 2021-12-09 13:16 | PE ---
EXAMINATION TYPE: PET CT fusion skull to thigh DATE OF EXAM: 12/07/2021 CLINICAL INDICATION:Male, 76 years old with history of [id number]; Mantle cell lymphoma, lymph nodes of he ad, face, and neck. TECHNIQUE: Following the intravenous administration of 11.25 mCi of F-18 FDG, whole body images are performed from the skull base to the midthigh. Images are reviewed on the computer in the coronal, axial, and sagittal planes. Reconstructed rotating images are created on independent workstation and reviewed on the computer. A non-contrast CT is performed in conjunction with the PET scan. Glucose level 116 mg/dL COMPARISON: CT None, PET/CT most recent 09/07/2021, 05/04/2021, FINDINGS: Mediastinal SUV maximum is 2.3. Hepatic parenchyma SUV maximum is 2.5. SKULL BASE AND NECK: No suspicious FDG activity. CHEST, MEDIASTINUM, AND HILAR REGION: No suspicious FDG activity. ABDOMEN AND PELVIS: No suspicious FDG activity. OSSEOUS STRUCTURES: No suspicious FDG activity. Uptake in the right greater trochanter bursa. OTHER CT: The lenses are removed from the globes. Vascular calcifications within the intracranial vas culature. Carotid bifurcation atherosclerosis. Atherosclerosis of the aorta. The ascending thoracic a tr demonstrates dilation up to 5.1 cm. There is moderate atherosclerosis of the coronary arteries w ith aortic valve leaflet calcifications and mitral valve annular calcifications. Bilateral fat fille d inguinal hernias. The prostate is enlarged measuring up to 5.1 cm in short axis. Mild multilevel di sc degeneration changes throughout the spine. IMPRESSION: 1. Persistent evidence for positive treatment response as detailed above. No new hypermetabolic mariella opathy seen. 2. Right greater trochanter bursitis. 3. Ascending thoracic aorta fusiform dilation up to 5.1 cm similar dating back to 08/06/2019.
== END | disposition home or self-care (01) ==
LOC: RADPETMAIN 06:48
PROVIDERS: ATTEND Physician Assistant
DX: C83.11 Mantle cell lymphoma, lymph nodes of head, face, and neck (principal)
CPT/HCPCS: 78815; A9552

== ENCOUNTER 2022-08-09 17:45 | Inpatient (IN) | payer MEDICARE ==
--- NOTE | 2022-08-09 19:40 | ED ---
General Adult HPI - General Chief complaint: Recheck/Abnormal Lab/Rx Stated complaint: LOW SODIUM Time Seen by Provider: 08/09/22 19:05 Source: patient, family (spouse), RN notes reviewed Mode of arrival: ambulatory Limitations: no limitations - History of Present Illness Initial comments: Patient is a 76-year-old male presenting to the emergency room at the direction of his dance critic whom he follows at the [facility] in regards to hyponatremia. He has been following at the [facility] in regards to recurrent pleural effusions requiring thoracentesis, lymphoma, and hyponatremia closely. He was last discharged from the [facility] on 08/02/2022. He underwent his last thoracentesis approximately 48 hours ago. He denies any paracentesis. He is currently on sodium bicarbonate 3 times a day 1 g for his hyponatremia with poor response. His oncologic treatment was changed to Revlimid from Venetoclax earlier in the month as it was felt that this was causing his hyponatremia. Unfortunately his hyponatremia has persisted. He had a PET scan completed at [facility] earlier this week in which results do show interval progression of lymphadenopathy and worsening of his lymphoma. He does report generalized weakness and a mild tremor which she attributes to his hyponatremia. He has generalized edema which has slowly worsened recently with noted bilateral lower extremity edema and ascites he feels that this is not significantly changed from his hospitalization earlier in the month. He does not follow with an oncologist, race steward or dance critic locally. All of his care is coordinated through [facility] with laboratory studies done locally through [facility] occasionally with coordination of his primary care provider at [facility]. He does report some increased cough and congestion over the last 24 hours but no significant shor tness of breath. He denies any chest pain, abdominal pain, nausea, vomiting, diarrhea, dysuria, hematuria, fevers or chills. - Related Data Previous Rx's Medication Instructions Recorded Apixaban [Eliquis] 5 mg PO BID #60 tab 01/15/17 Metoprolol Tartrate [Lopressor] 50 mg PO BID #60 tab 01/15/17 amLODIPine [Norvasc] 5 mg PO DAILY #30 tab 01/15/17 Allergies Allergy/AdvReac Type Severity Reaction Status Date / Time No Known Allergies Allergy Verified 08/09/22 17:59 Review of Systems ROS Statement: Those systems with pertinent positive or pertinent negative responses have been documented in the HPI. ROS Other: All systems not noted in ROS Statement are negative. Past Medical History Past Medical History: Atrial Fibrillation, Cancer, Hypertension, Thyroid Disorder Additional Past Medical History / Comment(s): hyponatremia History of Any Multi-Drug Resistant Organisms: None Reported Past Surgical History: Cardiac Ablation, Hernia Repair Past Anesthesia/Blood Transfusion Reactions: No Reported Reaction Past Psychological History: No Psychological Hx Reported Smoking Status: Never smoker Past Alcohol Use History: None Reported Past Drug Use History: None Reported - Past Family History Mother Family Medical History: No Reported History General Exam Limitations: no limitations General appearance: alert, in no apparent distress Head exam: Present: atraumatic, normocephalic, normal inspection Eye exam: Present: normal appearance, PERRL. Absent: scleral icterus, conjunctival injection, periorbital swelling, periorbital tenderness ENT exam: Present: normal exam, mucous membranes moist Neck exam: Present: normal inspection, full ROM Respiratory exam: Present: rales, rhonchi (scattered), decreased breath sounds (basilar). Absent: respiratory distress, wheezes, accessory muscle use Cardiovascular Exam: Present: regular rate, normal rhythm, normal heart sounds. Absent: systolic murmur, diastolic murmur, rubs, gallop, clicks GI/Abdominal exam: Present: soft, distended. Absent: tenderness, guarding, rebound Rectal exam: Present: deferred Extremities exam: Present: full ROM, tenderness, pedal edema (Bilateral lower extremity edema +2-3), other (Generalized weakness) Back exam: Present: normal inspection Neurological exam: Present: alert, oriented X3, CN II-XII intact, normal gait Psychiatric exam: Present: flat affect Skin exam: Present: warm, dry, intact, normal color. Absent: rash Course Vital Signs 08/09/22 08/09/22 08/09/22 17:55 18:30 19:00 Temperature 97.3 F L Pulse Rate 82 Respiratory 18 Rate Blood Pressure 100/63 138/86 O2 Sat by Pulse 9 L 96 Oximetry 08/09/22 08/09/22 08/09/22 19:30 20:00 21:30 Temperature Pulse Rate 76 Respiratory 18 Rate Blood Pressure 129/77 126/70 120/67 O2 Sat by Pulse 96 97 Oximetry 0408/10/22 08/10/22 22:00 01:05 01:30 Temperature 97.6 F Pulse Rate 80 79 Respiratory 18 Rate Blood Pressure 93/62 86/47 78/60 O2 Sat by Pulse 98 96 Oximetry 08/10/22 02:15 Temperature Pulse Rate 75 Respiratory 16 Rate Blood Pressure 77/50 O2 Sat by Pulse 96 Oximetry Medical Decision Making - Medical Decision Making Was pt. sent in by a medical professional or institution (, PA, CHANNEL SALES MANAGER, urgent care, hospital, or senior care...) When possible be specific @ -No Did you speak to anyone other than the patient for history (EMS, parent, family, police, friend...)? What history was obtained from this source @ -Spoke with spouse incoordination for HPI information as indicated above. Did you review nursing and triage notes (agree or disagree)? Why? @ -I reviewed and agree with nursing and triage notes Were old charts reviewed (outside hosp., previous admission, EMS record, old EKG, old radiological studies, urgent care reports/EKG's, senior care records)? Report findings @ -PET scan results from a portable at [facility] reviewed showing interval increase in lymphoma. [facility] at bedside reviewed. Differential Diagnosis (chest pain, altered mental status, abdominal pain women, abdominal pain men, vaginal bleeding, weakness, fever, dyspnea, syncope, headache, dizziness, GI bleed, back pain, seizure, CVA, palpatations, mental health, musculoskeletal)? @ -Differential Weakness: Hypoglycemia, shock, sepsis, hyponatremia, anemia, infection, NV, ETOH, adverse medicine reaction, overdose, stroke, this is not meant to be an all-inclusive list. EKG interpreted by me (3pts min.). @ -Sinus rhythm with first-degree AV block and right bundle branch block, ventricular rate 80 bpm, NJ interval 230 ms, QRS duration 173 ms, QT/QTC 405/440 ms, PRT axes 52, 264, 36 X-rays interpreted by me (1pt min.). @ -Chest x-ray 2 view: Trace right pleural effusion and right lower lobe consolidation consistent with pneumonia. CT interpreted by me (1pt min.). @ -None done U/S interpreted by me (1pt. min.). @ -None done What testing was considered but not performed or refused? (CT, X-rays, U/S, labs)? Why? @ -Computed tomography scan of the chest considered but deferred due to recent PET scan and thoracentesis will defer to admitting team and pulmonology consult. What meds were considered but not given or refused? Why? @ -None Did you discuss the management of the patient with other professionals (professionals i.e. Dr., PA, CHANNEL SALES MANAGER, lab, RT, psych nurse, social sciences professor, miller apprentice, teacher, chief information security officer, egg caser)? Give summary @ -Yes discussed case with Dr. Gutierrez with nephrology regarding hyponatremia and her treatment recommendations see below regarding her recommendations. Spoke with Dr. fong on for [facility] regarding admission recommendations he is requesting patient to be admitted to ICU, spoke with the circulation man who declined admission but is staying on consult for pneumonia and pleural effusion. Due to hypotension after discussing case with circulation man patient may need transfer to ICU will order fluid bolus of 1 L at this time and contact circulation man again if pressure does not improve at this time will plan for admission to stepdown unit. Was smoking cessation discussed for >3mins.? @ -No Was critical care preformed (if so, how long)? @ -45 minutes Were there social determinants of health that impacted care today? How? (Homelessness, low income, unemployed, alcoholism, drug addiction, transportation, low edu. Level, literacy, decrease access to med. care, penitentiary, rehab)? @ -No Was there de-escalation of care discussed even if they declined (Discuss DNR or withdrawal of care, Hospice)? DNR status @ -Yes DO NOT RESUSCITATE status was discussed patient wishes to remain full code. What co-morbidities impacted this encounter? (DM, HTN, Smoking, COPD, CAD, Cancer, CVA, ARF, Chemo, Hep., AIDS, mental health diagnosis, sleep apnea, morbid obesity)? @ -Lymphoma and hyponatremia Was patient admitted / discharged? Hospital course, mention meds given and route, prescriptions, significant lab abnormalities, going to OR and other pertinent info. @ -76-year-old male presenting to the emergency room at the direction of his oncologic team and dance critic for further evaluation and treatment for hyponatremia. Will begin workup and plan for admission with chest x-ray, EKG, CBC, CBC, ionized calcium, lactic acid, magnesium, phosphorus, troponin, TSH, coag, ionized calcium and urinalysis. EKG demonstrates sinus rhythm with right bundle branch block and first-degree AV block. Laboratory results were delayed due to inability to obtain blood from [employer]. Peripheral stick labs reveal sodium 119, potassium 5.9 chloride 91, carbon dioxide 18, BUN 81 creatinine 2.6, glucose 100 calcium 8.3, phosphorus 5.3 magnesium 2.7, albumin 2.7 TSH slightly elevated 5.670, liver enzymes normal. Troponin negative. Lactic acid 1.5 CBC continues to be pending. Spoke with nephrology regarding lab results patient to receive 40 mg of IV Lasix, 1 amp D50, 10 units of regular insulin, 10 g of [place]. S serum osmolarity pending when spoke with nephrology resulted normally at 282 urine osmolarity ordered along with postvoid residual which was normal. Urinalysis shows trace proteins no other abnormalities. Spoke with Dr. Fong regarding patient's need for admission he advised patient needs to be admitted to ICU. Spoke with Dr. Martínez in regards to ICU admission however in the setting of normal mental status sodium of 119 and stable blood pressure he denied admission to the ICU. Chest x-ray demonstrates trace pleural effusions along with right lobe pneumonia. He continues to saturate well on room air will give Rocephin in the setting of acute renal failure for pneumonia. Dr. Martínez agreeable for consult from a pulmonary standpoint due to recurrent pleural effusions and pneumonia. Patient offered and declined transfer to [facility]. CODE STATUS verified at this time patient wishes to remain a full code. After IV Lasix patient's blood pressure low 70s to 80s mental status remains stable. Will give 1 L IV fluids however high concern for volume overload will hold further boluses and initiate pressors if no response to IV hydration. Pending response to fluid challenge will contact circulation man for possible excepting of admission to ICU but at this time place admission orders to stepdown unit. Will admit patient to stepdown unit in guarded condition under Dr. fong with consult to nephrology and pulmonology for hyponatremia and right lower lobe pneumonia. Undiagnosed new problem with uncertain prognosis? @ -No Drug Therapy requiring intensive monitoring for toxicity (Heparin, Nitro, Insulin, Cardizem)? @ -No Were any procedures done? @ -No Diagnosis/symptom? @ -Hyponatremia Acute, or Chronic, or Acute on Chronic? @ -Acute on chronic Uncomplicated (without systemic symptoms) or Complicated (systemic symptoms)? @ -Uncomplicated Side effects of treatment? @ -No Exacerbation, Progression, or Severe Exacerbation? @ -No Poses a threat to life or bodily function? How? (Chest pain, USA, NV, pneumonia, PE, COPD, DKA, ARF, appy, cholecystitis, CVA, Diverticulitis, Homicidal, Suicidal, threat to staff... and all critical care pts) @ -Yes low sodium level at risk for cardiac arrhythmia, coma and . Diagnosis/symptom? @ -Right lower lobe pneumonia Acute, or Chronic, or Acute on Chronic? @ -Acute Uncomplicated (without systemic symptoms) or Complicated (systemic symptoms)? @ -complicated Side effects of treatment? @ -none Exacerbation, Progression, or Severe Exacerbation] @ -no Poses a threat to life or bodily function? @ -Yes, risk for hypoxemia sepsis and . Case discussed with Dr. Walker - Lab Data Result diagrams: 08/09/22 21:42 Lab Results 08/09/22 08/09/22 08/09/22 Range/Units 00:10 21:42 21:42 PT 10.4 (9.0-12.0) sec INR 1.0 (<1.2) APTT 22.8 (22.0-30.0) sec Sodium 119 L* (137-145) mmol/L Potassium 5.9 H (3.5-5.1) mmol/L Chloride 91 L (98-107) mmol/L Carbon Dioxide 18 L (22-30) mmol/L Anion Gap 10 mmol/L BUN 81 H (9-20) mg/dL Creatinine 2.60 H (0.66-1.25) mg/dL Est GFR (CKD-EPI)AfAm 27 (>60 ml/min/1.73 sqM) Est GFR (CKD-EPI)NonAf 23 (>60 ml/min/1.73 sqM) Glucose 100 H (74-99) mg/dL Osmolality 282 (280-301) mosm/kg Plasma Lactic Acid Davis (0.7-2.0) mmol/L Calcium 8.3 L (8.4-10.2) mg/dL Ionized Calcium Artis 4.5 (4.5-5.3) mg/dL Phosphorus 5.3 H (2.5-4.5) mg/dL Magnesium 2.7 H (1.6-2.3) mg/dL Total Bilirubin 1.3 (0.2-1.3) mg/dL AST 34 (17-59) U/L ALT 18 (4-49) U/L Alkaline Phosphatase 121 (38-126) U/L Troponin I (0.000-0.034) ng/mL Total Protein 4.9 L (6.3-8.2) g/dL Albumin 2.7 L (3.5-5.0) g/dL TSH 5.670 H (0.465-4.680) mIU/L Urine Color Urine Appearance (Clear) Urine pH (5.0-8.0) Ur Specific [place] (1.001-1.035) Urine Protein (Negative) Urine Glucose (UA) (Negative) Urine Ketones (Negative) Urine Blood (Negative) Urine Nitrite (Negative) Urine Bilirubin (Negative) Urine Urobilinogen (<2.0) mg/dL Ur Leukocyte Esterase (Negative) 08/09/22 08/09/22 08/10/22 Range/Units 22:45 23:07 01:13 PT (9.0-12.0) sec INR (<1.2) APTT (22.0-30.0) sec Sodium (137-145) mmol/L Potassium (3.5-5.1) mmol/L Chloride (98-107) mmol/L Carbon Dioxide (22-30) mmol/L Anion Gap mmol/L BUN (9-20) mg/dL Creatinine (0.66-1.25) mg/dL Est GFR (CKD-EPI)AfAm (>60 ml/min/1.73 sqM) Est GFR (CKD-EPI)NonAf (>60 ml/min/1.73 sqM) Glucose (74-99) mg/dL Osmolality (280-301) mosm/kg Plasma Lactic Acid Davis 1.5 (0.7-2.0) mmol/L Calcium (8.4-10.2) mg/dL Ionized Calcium Artis (4.5-5.3) mg/dL Phosphorus (2.5-4.5) mg/dL Magnesium (1.6-2.3) mg/dL Total Bilirubin (0.2-1.3) mg/dL AST (17-59) U/L ALT (4-49) U/L Alkaline Phosphatase (38-126) U/L Troponin I 0.013 (0.000-0.034) ng/mL Total Protein (6.3-8.2) g/dL Albumin (3.5-5.0) g/dL TSH (0.465-4.680) mIU/L Urine Color Yellow Urine Appearance Clear (Clear) Urine pH 5.0 (5.0-8.0) Ur Specific [place] 1.019 (1.001-1.035) Urine Protein Trace H (Negative) Urine Glucose (UA) Negative (Negative) Urine Ketones Negative (Negative) Urine Blood Negative (Negative) Urine Nitrite Negative (Negative) Urine Bilirubin Negative (Negative) Urine Urobilinogen <2.0 (<2.0) mg/dL Ur Leukocyte Esterase Negative (Negative) - Radiology Data Radiology results: report reviewed, image reviewed Disposition Clinical Impression: Hyponatremia, Right lower lobe pneumonia Disposition: ADMITTED IP TO THIS [facility] Condition: Serious Time of Disposition: 02:05
[2022-08-09] MEDS ORDERED: ALTEPLASE 2 MG VIAL (CATHFLO) IV STA (20:30)
--- NOTE | 2022-08-09 20:59 | XR ---
EXAMINATION TYPE: XR chest 2V DATE OF EXAM: 08/09/2022 8:37 PM COMPARISON: Chest radiographs from 08/09/2022 TECHNIQUE: XR chest 2V Frontal and lateral views of the chest. CLINICAL INDICATION:Male, 76 years old with history of Weakness; FINDINGS: Lungs/Pleura: Bibasilar airspace opacities There is no evidence of pleural effusion, focal consolidat ion, or pneumothorax. Pulmonary vascularity: Unremarkable. Heart/mediastinum: Cardiomediastinal silhouette is unremarkable. Musculoskeletal: No acute osseous pathology. Lines/Tubes: [id number] projecting over the left hemithorax with distal tip at the right atrium. IMPRESSION: Right basilare airspace opacities could represent atelectasis versus developing pneumonia. Trace right pleural effusion.
[2022-08-09 22:21] LABS: Ionized Calcium 4.5 mg/dL (4.5-5.3)
[2022-08-09 22:31] LABS: Albumin 2.7 g/dL (3.5-5.0); Calcium 8.3 mg/dL (8.4-10.2); Total Bilirubin 1.3 mg/dL (0.2-1.3); Total Protein 4.9 g/dL (6.3-8.2)
[2022-08-09 22:48] LABS: Magnesium 2.7 mg/dL (1.6-2.3); Phosphorus 5.3 mg/dL (2.5-4.5); Potassium 5.9 mmol/L (3.5-5.1)
[2022-08-10] MEDS ORDERED: FUROSEMIDE 10 MG/ML 4 ML VIAL IV STA ×2 (00:26→09:41)
[2022-08-10] MEDS ORDERED: INSULIN REGULAR 100 UNIT/ML VIAL (IV) IV ONE (00:26)
[2022-08-10] MEDS ORDERED: SODIUM ZIRCONIUM CYCLOSILICATE 10 GM PACKET PO ONE (00:26)
[2022-08-10] MEDS ORDERED: DEXTROSE 50% SYRINGE 50 ML IVP STA (00:26)
[2022-08-10] MEDS ORDERED: ALTEPLASE 2 MG VIAL (CATHFLO) IV ONE (01:15)
[2022-08-10 01:44] LABS: Appearance,Urine Clear (Clear); Bilirubin,Urine Negative (Negative); Blood,Urine Negative (Negative); Color,Urine Yellow; Glucose,Urine (UA) Negative (Negative); Ketones,Urine Negative (Negative); Leukocyte Esterase,Urine Negative (Negative); Nitrite,Urine Negative (Negative); Protein,Urine Trace (Negative); Specific Gravity,Urine 1.019 (1.001-1.035); Urobilinogen,Urine <2.0 mg/dL (<2.0)
[2022-08-10] MEDS ORDERED: SODIUM CHLORIDE 0.9% 1,000 ML IV STA (01:55)
[2022-08-10] MEDS ORDERED: cefTRIAXone IN SWFI 1,000 MG/10 ML SYRINGE IVP STA (01:57)
[2022-08-10] MEDS ORDERED: NALOXONE 0.4 MG/ML 1 ML VIAL IV PRN (02:06)
[2022-08-10 02:15] LABS: Partial Thromboplastin Time 22.8 sec (22.0-30.0); Prothrombin Time 10.4 sec (9.0-12.0)
[2022-08-10 03:45] LABS: Basophils % (A) 0 %; Eosinophils % (A) 1 %; HCT 34.8 % (39.0-53.0); Lymphocytes # (A) 0.4 k/uL (1.0-4.8); Lymphocytes % (A) 11 %; MCH 31.1 pg (25.0-35.0); MCHC 34.6 g/dL (31.0-37.0); MCV 89.9 fL (80.0-100.0); Mean Platelet Volume 9.7; Monocytes # (A) 0.3 k/uL (0-1.0); Monocytes % (A) 7 %; Neutrophils # (A) 3.2 k/uL (1.3-7.7); Neutrophils % (A) 79 %; RBC 3.87 m/uL (4.30-5.90); RDW 15.8 % (11.5-15.5); WBC 4.1 k/uL (3.8-10.6)
[2022-08-10 04:58] LABS: Platelet Count 71 k/uL (150-450)
[2022-08-10 05:46] LABS: Basophils % (A) 0 %; Eosinophils % (A) 1 %; HCT 33.5 % (39.0-53.0); HGB 11.5 gm/dL (13.0-17.5); Lymphocytes # (A) 0.1 k/uL (1.0-4.8); Lymphocytes % (A) 4 %; MCH 31.3 pg (25.0-35.0); MCHC 34.4 g/dL (31.0-37.0); MCV 90.9 fL (80.0-100.0); Mean Platelet Volume 9.7; Monocytes # (A) 0.1 k/uL (0-1.0); Monocytes % (A) 5 %; Neutrophils # (A) 2.5 k/uL (1.3-7.7); Neutrophils % (A) 89 %; RBC 3.69 m/uL (4.30-5.90); RDW 15.9 % (11.5-15.5); WBC 2.8 k/uL (3.8-10.6)
[2022-08-10 05:51] LABS: Platelet Count 69 k/uL (150-450)
[2022-08-10 05:57] LABS: Calcium 7.7 mg/dL (8.4-10.2); Potassium 4.9 mmol/L (3.5-5.1)
--- NOTE | 2022-08-10 08:32 | P.CNPUL ---
History of Present Illness Consult date: 08/10/22 Requesting physician: Oli Armando Reason for consult: other Chief complaint: Weakness, hyponatremia. History of present illness: Pulmonary consult dated 08/10/2022. 76-year-old male with a history of mantle cell lymphoma, who typically is followed at the [facility]. He apparently has a television production clerk there, oncologist, and oil paint shader. Recently, they've been having issues with low sodiums, as well as recurrent pleural effusions, requiring thoracentesis. The patient states that he's had at least 6 thoracentesis in the recent past. He came into the hospital because he was directed by his doctors there to be evaluated. The patient is not a particularly good historian and is seen in the emergency department, room 15. He is on room air. Is not receiving any IV fluids. His initial sodium was 119. His chest x-ray shows fluid overload pulmonary edema with small effusions, and a possible right lower lobe infiltrate. The patient also has a history of atrial fibrillation, and hypertension. He's had a cardiac ablation in the past. He is a lifelong nonsmoker. White count 2.8, hemoglobin 11.5, hematocrit 33.5, and a platelet count of 69,000. Sodium 120 potassium 4.9, chlorides 93, CO2 18, anion gap 9, BUN 78, creatinine 2.32. Urine was negative. Troponin was normal. Review of Systems REVIEW OF SYSTEMS: CONSTITUTIONAL: Weakness. NEUROLOGIC: [ Negative.] HEENT: [ Negative.] CARDIAC: Lower extremity edema. PULMONARY: [Negative.] GI: [Negative.] : [Negative.] RHEUMATOLOGIC: [ Negative.] IMMUNOLOGIC: [ Negative.] ENDOCRINE: [Negative. ] DERMATOLOGIC: [Negative.] Past Medical History Past Medical History: Atrial Fibrillation, Cancer, Hypertension, Thyroid Disorder Additional Past Medical History / Comment(s): hyponatremia History of Any Multi-Drug Resistant Organisms: None Reported Past Surgical History: Cardiac Ablation, Hernia Repair Past Anesthesia/Blood Transfusion Reactions: No Reported Reaction Past Psychological History: No Psychological Hx Reported Smoking Status: Never smoker Past Alcohol Use History: None Reported Past Drug Use History: None Reported - Past Family History Mother Family Medical History: No Reported History Medications and Allergies Home Medications Medication Instructions Recorded Confirmed Type Apixaban [Eliquis] 5 mg PO BID #60 tab 01/15/17 Rx Metoprolol Tartrate [Lopressor] 50 mg PO BID #60 tab 01/15/17 Rx amLODIPine [Norvasc] 5 mg PO DAILY #30 tab 01/15/17 Rx Allergies Allergy/AdvReac Type Severity Reaction Status Date / Time No Known Allergies Allergy Verified 08/09/22 17:59 Physical Exam Osteopathic Statement: *. No significant issues noted on an osteopathic structural exam other than those noted in the History and Physical/Consult. Vitals: Vital Signs Temp Pulse Resp BP Pulse Ox 08/10/22 06:10 76 22 105/56 97 08/10/22 05:07 75 20 116/65 96 08/10/22 04:11 76 16 113/74 95 08/10/22 03:41 75 18 103/70 96 08/10/22 02:15 75 16 77/50 96 08/10/22 01:30 79 78/60 96 08/10/22 01:05 97.6 F 80 18 86/47 98 08/09/22 22:00 93/62 08/09/22 21:30 76 18 120/67 97 08/09/22 20:00 126/70 08/09/22 19:30 129/77 96 08/09/22 19:00 138/86 08/09/22 18:30 96 08/09/22 17:55 97.3 F L 82 18 100/63 9 L Intake and Output 08/09/22 08/10/22 08/10/22 22:59 06:59 14:59 Other: Weight 115.666 kg No acute distress, oriented 3. Currently on room air. No respiratory distress. Saturations are 97%. HEENT examination is grossly unremarkable. Neck supple. Full range of motion. No adenopathy thyromegaly or neck vein distention. Cardiovascular examination reveals regular rhythm rate. S1-S2 normal. No S3 or S4. No discernible murmur noted. Heart rate 76 bpm. Lungs reveal mild scattered rhonchi. No wheezes or crackles. Breath sounds are equal bilaterally. Room air saturation is 97%. Abdomen soft bowel sounds are heard. No masses or tenderness. Extremities are intact. No cyanosis or clubbing. 1-2+ pitting edema is noted. Skin is without rash or lesion. Neurologic examination is brief but nonfocal. Results - Laboratory Findings CBC and BMP: 08/10/22 05:28 08/10/22 05:28 PT/INR, D-dimer PT 10.4 sec (9.0-12.0) 08/09/22 00:10 INR 1.0 (<1.2) 08/09/22 00:10 Abnormal lab findings: Abnormal Labs 08/09/22 08/10/22 08/10/22 21:42 01:13 02:09 WBC RBC 3.87 L Hgb 12.0 L Hct 34.8 L RDW 15.8 H Plt Count 71 L Lymphocytes # 0.4 L Sodium 119 L* Potassium 5.9 H Chloride 91 L Carbon Dioxide 18 L BUN 81 H Creatinine 2.60 H Glucose 100 H Calcium 8.3 L Phosphorus 5.3 H Magnesium 2.7 H Total Protein 4.9 L Albumin 2.7 L TSH 5.670 H Urine Protein Trace H 08/10/22 08/10/22 05:28 05:28 WBC 2.8 L RBC 3.69 L Hgb 11.5 L Hct 33.5 L RDW 15.9 H Plt Count 69 L Lymphocytes # 0.1 L Sodium 120 L Potassium Chloride 93 L Carbon Dioxide 18 L BUN 78 H Creatinine 2.32 H Glucose Calcium 7.7 L Phosphorus Magnesium Total Protein Albumin TSH Urine Protein - Diagnostic Findings Chest x-ray: image reviewed Assessment and Plan Assessment: Weakness, with hyponatremia, chronic. History of recurrent pleural effusion, status post thoracentesis 6. History of mantle cell lymphoma, followed at [facility]. Possible right lower lobe pneumonia. History of atrial fibrillation, with prior ablation. History of hypertension. Lifelong nonsmoker. Plan: Plan dated 08/10/2022. The patient is seen in the emergency department, bed 15. The patient's currently on room air. Saturations are 97%. Labs, x-rays, and medications are reviewed. The patient does not need thoracentesis at this time. His repeat sodium is up to 120. Additional recommendations and suggestions are forthcoming. Some consideration might be given to transferring the patient back to [facility], where he receives most of his care. Prognosis is guarded. Time with Patient: Greater than 30
[2022-08-10] MEDS ORDERED: PNEUMONIA PROTOCOL UTILIZED 1 EACH MISC PO PRN ×2 (10:44→14:15)
[2022-08-10] MEDS ORDERED: AZITHROMYCIN 500 MG in SODIUM CHLORIDE 0.9% 250 ML IVPB STA (10:44)
--- NOTE | 2022-08-10 11:12 | XR ---
EXAMINATION TYPE: XR chest 2V DATE OF EXAM: 08/10/2022 11:06 AM COMPARISON: Chest radiographs from 08/09/2022 PET/CT 12/07/2021 TECHNIQUE: XR chest 2V Frontal and lateral views of the chest. CLINICAL INDICATION:Male, 76 years old with history of Pneumonia; FINDINGS: Patient is rotated which limits evaluation. Lungs/Pleura: Increased small to moderate size right pleural effusion. Similar right basilar patchy a irspace opacity. No pneumothorax. Pulmonary vascularity: Unremarkable. Heart/mediastinum: Cardiomediastinal silhouette is unremarkable. Musculoskeletal: No acute osseous pathology. Other findings: None Lines/Tubes: [id number] projecting over the left hemithorax with distal tip at the cavoatrial junction. IMPRESSION: Small to moderate size right pleural effusion with adjacent airspace opacities which may represent at electasis versus infiltrate.
--- NOTE | 2022-08-10 11:37 | P.NPCON ---
History of Present Illness - Reason for Consult hyponatremia - History of Present Illness Patient is a 76-year-old male who has an underlying history of mantle cell lymphoma and follows at [facility]. Patient has had low sodium levels for some time and is currently maintained on sodium chloride tabs. reports increased lower extremity swelling over the past few days. Sodium was noted to be low at 119 and therefore patient was advised to go to the ER. Chest x-ray shows evidence of pulmonary edema and effusions Patient received 1 dose of IV Lasix yesterday and sodium today is 120. He is apparently more comfortable as well according to the . Blood pressure has been on the lower side with systolic at 78 and 77 mmHg earlier, currently at 123. Patient did get 1 L fluid bolus on initial admiss ion. Patient has been voiding. Review of Systems As per HPI Past Medical History Past Medical History: Atrial Fibrillation, Cancer, Hypertension, Thyroid Disorder Additional Past Medical History / Comment(s): Hyponatremia, lymphoma diagnosed about 3 years ago, frequent pleural effusions with thoracentesis, follows with [facility]. History of Any Multi-Drug Resistant Organisms: None Reported Past Surgical History: Cardiac Ablation, Hernia Repair Additional Past Surgical History / Comment(s): Port placed in left upper chest, last thoracentesis 08/08/22. Past Anesthesia/Blood Transfusion Reactions: No Reported Reaction Past Psychological History: No Psychological Hx Reported Smoking Status: Never smoker Past Alcohol Use History: None Reported Past Drug Use History: None Reported - Past Family History Mother Family Medical History: No Reported History Additional Family Medical History / Comment(s): Parkinsons Father Additional Family Medical History / Comment(s): Heart conditions Medications and Allergies Home Medications Medication Instructions Recorded Confirmed Type Apixaban [Eliquis] 5 mg PO BID #60 tab 01/15/17 Rx Metoprolol Tartrate [Lopressor] 50 mg PO BID #60 tab 01/15/17 Rx amLODIPine [Norvasc] 5 mg PO DAILY #30 tab 01/15/17 Rx Allergies Allergy/AdvReac Type Severity Reaction Status Date / Time No Known Allergies Allergy Verified 08/09/22 17:59 Physical Exam Vitals: Vital Signs Temp Pulse Pulse Resp BP BP Pulse Ox 08/10/22 11:09 97.5 F L 80 20 93/58 97 08/10/22 09:45 77 16 123/68 95 08/10/22 06:10 76 22 105/56 97 08/10/22 05:07 75 20 116/65 96 08/10/22 04:11 76 16 113/74 95 08/10/22 03:41 75 18 103/70 96 08/10/22 02:15 75 16 77/50 96 08/10/22 01:30 79 78/60 96 08/10/22 01:05 97.6 F 80 18 86/47 98 08/09/22 22:00 93/62 08/09/22 21:30 76 18 120/67 97 08/09/22 20:00 126/70 08/09/22 19:30 129/77 96 08/09/22 19:00 138/86 08/09/22 18:30 96 08/09/22 17:55 97.3 F L 82 18 100/63 9 L Intake and Output 08/09/22 08/10/22 08/10/22 22:59 06:59 14:59 Other: Weight 115.666 kg 115.666 kg Patient is awake, comfortable, no acute distress Examination of the heart S1 and S2 Examination of the lungs bilateral breath sounds are heard Abdomen is soft distended nontender Examination lower extremity shows 2-3+ edema bilaterally [employer] exam grossly intact Results - Lab Results Most recent lab results Calcium 7.7 mg/dL (8.4-10.2) L 08/10/22 05:28 Phosphorus 5.3 mg/dL (2.5-4.5) H 08/09/22 21:42 Magnesium 2.7 mg/dL (1.6-2.3) H 08/09/22 21:42 08/10/22 05:28 08/10/22 05:28 Assessment and Plan Assessment: 1. Hyponatremia, currently hypervolemic, slightly improved with Lasix. Patient did receive a fluid bolus as well in the ER for hypotension. At this time I will continue with the Lasix and repeat sodium at 2 PM. Urine osmolality was 532 2. Mantle cell lymphoma being followed at [facility] currently maintained on Revlimid 3. Acute kidney injury secondary to hypotension, rule out urine retention 4. Non-gap metabolic acidosis secondary to acute kidney injury 5. Volume overload Plan: Repeat IV Lasix Repeat sodium this afternoon Consider Samsca if not improved Check bladder scan and rule out urine retention Check ultrasound of the kidneys Use midodrine if patient remains hypotensive and try to avoid fluid bolus Discontinue sodium chloride tabs due to worsening volume status. Thank you for the consultation. We will continue to follow the patient with you during his hospitalization
[2022-08-10] MEDS: MIDODRINE 5 MG TAB PO SCH ×2 (11:52→17:24)
--- NOTE | 2022-08-10 13:48 | P.CONS ---
History of Present Illness - Reason for Consult Consult date: 08/10/22 Mantle cell lymphoma - Chief Complaint Worsening weakness - History of Present Illness Mr. Arevalo is a 76-year-old gentleman with a past medical history significant for refractory mantle cell lymphoma recently started on Revlimid on 08/03/2022 who presents due to increased weakness. With regards to his mantle cell lymphoma, history was obtained by his and son at bedside. He was diagnosed approximately 3 years ago and was initially treated with ibrutinib. It appeared he then had disease progression, and was treated with bendamustine/rituximab. He was started on venetoclax more recently likely due to disease progression, but noted he has had progressive weakness over the past 6 weeks with multiple admissions at [facility] for hyponatremia. This appears to have been treated with fluid restriction along with salt tablets 3 times daily with improvement in his sodium to around the 130s. While he was admitted, he was not on venetoclax. It was unclear if the hyponatremia could have been possibly due to venetoclax, which is a noted side effect. During his admissions there, he noted to have been required up to 6 thoracenteses in the right lung. Is not clear if pleural fluid had positive cytology for mantle cell lymphoma. He did start taking Revlimid on 08/03/2022, which he feels he has tolerated well to date. He did have a PET/CT at [facility] on 08/08/2022, which his showed me the report through the online portal. They noted interval disease progress ion compared to prior PET/CT on 04/17/2022 with development of FDG avid lymphadenopathy in the bilateral cervical region, mediastinum, and retroperitoneal lymphadenopathy. It was also noted he had a right lower lung base consolidation consistent with infection. He has been having progressive weakness over the past week along with intermittent nausea and feeling sluggish mentally. He denies any fevers, chills, cough, or dyspnea. Given the progressive weakness, he presented to the ED for additional management. On presentation, he was noted to have multiple metabolic abnormalities with sodi um 119, creatinine 2.60, BUN 81, mag 2.7, Phos 5.3. CBC noted platelets of 71 with hemoglobin 12. Serum osmolality was 282 with urine osmolality 532. Urinalysis was negative. He was given sodium zirconium cyclosilicate, Lasix, and insulin with D50. He did develop subsequent hypotension, which improved with IV fluids. Chest x-ray noted right lower lobe consolidation concerning for pneumonia. He was given ceftriaxone and azithromycin and admitted for additional management. Review of Systems 14 point review of systems was conducted with pertinent positives and negatives as noted per HPI Past Medical History Past Medical History: Atrial Fibrillation, Cancer, Hypertension, Thyroid Disorder Additional Past Medical History / Comment(s): Hyponatremia, lymphoma diagnosed about 3 years ago, frequent pleural effusions with thoracentesis, follows with [facility]. History of Any Multi-Drug Resistant Organisms: None Reported Past Surgical History: Cardiac Ablation, Hernia Repair Additional Past Surgical History / Comment(s): Port placed in left upper chest, last thoracentesis 08/08/22. Past Anesthesia/Blood Transfusion Reactions: No Reported Reaction Past Psychological History: No Psychological Hx Reported Smoking Status: Never smoker Past Alcohol Use History: None Reported Past Drug Use History: None Reported - Past Family History Mother Family Medical History: No Reported History Additional Family Medical History / Comment(s): Parkinsons Father Additional Family Medical History / Comment(s): Heart conditions Medications and Allergies Home Medications Medication Instructions Recorded Confirmed Type Aspirin EC [Ecotrin Low Dose] 81 mg PO HS 08/10/22 08/10/22 History Lenalidomide [Revlimid] 15 mg PO HS 08/10/22 08/10/22 History Levothyroxine Sodium [Synthroid] 88 mcg PO DAILY 08/10/22 08/10/22 History Metoprolol Succinate (ER) [Toprol 25 mg PO DAILY 08/10/22 08/10/22 History Xl] Multivit/Iron Sulf/Folic Acid 1 tab PO DAILY 08/10/22 08/10/22 History [Multivitamin with Iron] Sodium Chloride Tab 1 gm PO TID 08/10/22 08/10/22 History Terazosin HCl 10 mg PO DAILY 08/10/22 08/10/22 History Allergies Allergy/AdvReac Type Severity Reaction Status Date / Time No Known Allergies Allergy Verified 08/10/22 12:56 Physical Exam Vitals: Vital Signs Temp Pulse Pulse Resp BP BP Pulse Ox 08/10/22 12:32 88 20 95/58 95 08/10/22 11:09 97.5 F L 80 20 93/58 97 08/10/22 09:45 77 16 123/68 95 08/10/22 06:10 76 22 105/56 97 08/10/22 05:07 75 20 116/65 96 08/10/22 04:11 76 16 113/74 95 08/10/22 03:41 75 18 103/70 96 08/10/22 02:15 75 16 77/50 96 08/10/22 01:30 79 78/60 96 08/10/22 01:05 97.6 F 80 18 86/47 98 08/09/22 22:00 93/62 08/09/22 21:30 76 18 120/67 97 08/09/22 20:00 126/70 08/09/22 19:30 129/77 96 08/09/22 19:00 138/86 08/09/22 18:30 96 08/09/22 17:55 97.3 F L 82 18 100/63 9 L Intake and Output 08/09/22 08/10/22 08/10/22 22:59 06:59 14:59 Output Total 100 Balance -100 Output: Urine 50 Post Void Residual 50 Other: Weight 115.666 kg 115.666 kg - Constitutional Lying in bed, fatigued appearing General appearance: cooperative, no acute distress - EENT Eyes: EOMI - Respiratory Respiratory: bilateral: CTA - Cardiovascular Rhythm: regular - Gastrointestinal Dullness to percussion with positive fluid wave concerning for ascites General gastrointestinal: distended, normal bowel sounds, soft, no tenderness - Integumentary Integumentary: no rash - Neurologic Neurologic: CNII-XII intact Results CBC & Chem 7: 08/10/22 05:28 08/10/22 05:28 Labs: Abnormal Lab Results - Last 24 Hours (Table) 08/09/22 08/10/22 08/10/22 Range/Units 21:42 01:13 02:09 WBC (3.8-10.6) k/uL RBC 3.87 L (4.30-5.90) m/uL Hgb 12.0 L (13.0-17.5) gm/dL Hct 34.8 L (39.0-53.0) % RDW 15.8 H (11.5-15.5) % Plt Count 71 L (150-450) k/uL Lymphocytes # 0.4 L (1.0-4.8) k/uL Sodium 119 L* (137-145) mmol/L Potassium 5.9 H (3.5-5.1) mmol/L Chloride 91 L (98-107) mmol/L Carbon Dioxide 18 L (22-30) mmol/L BUN 81 H (9-20) mg/dL Creatinine 2.60 H (0.66-1.25) mg/dL Glucose 100 H (74-99) mg/dL Calcium 8.3 L (8.4-10.2) mg/dL Phosphorus 5.3 H (2.5-4.5) mg/dL Magnesium 2.7 H (1.6-2.3) mg/dL Total Protein 4.9 L (6.3-8.2) g/dL Albumin 2.7 L (3.5-5.0) g/dL TSH 5.670 H (0.465-4.680) mIU/L Urine Protein Trace H (Negative) 08/10/22 08/10/22 Range/Units 05:28 05:28 WBC 2.8 L (3.8-10.6) k/uL RBC 3.69 L (4.30-5.90) m/uL Hgb 11.5 L (13.0-17.5) gm/dL Hct 33.5 L (39.0-53.0) % RDW 15.9 H (11.5-15.5) % Plt Count 69 L (150-450) k/uL Lymphocytes # 0.1 L (1.0-4.8) k/uL Sodium 120 L (137-145) mmol/L Potassium (3.5-5.1) mmol/L Chloride 93 L (98-107) mmol/L Carbon Dioxide 18 L (22-30) mmol/L BUN 78 H (9-20) mg/dL Creatinine 2.32 H (0.66-1.25) mg/dL Glucose (74-99) mg/dL Calcium 7.7 L (8.4-10.2) mg/dL Phosphorus (2.5-4.5) mg/dL Magnesium (1.6-2.3) mg/dL Total Protein (6.3-8.2) g/dL Albumin (3.5-5.0) g/dL TSH (0.465-4.680) mIU/L Urine Protein (Negative) Chest x-ray: image reviewed Assessment and Plan (1) Mantle cell lymphoma Current Visit: Yes Status: Acute Code(s): C83.10 - MANTLE CELL LYMPHOMA, UNSPECIFIED SITE SNOMED Code(s): 977316189 (2) Pancytopenia Current Visit: Yes Status: Acute Code(s): D61.818 - OTHER PANCYTOPENIA SNOMED Code(s): 938856402 (3) Hyponatremia Current Visit: Yes Status: Acute Code(s): E87.1 - HYPO-OSMOLALITY AND HYPONATREMIA SNOMED Code(s): 66292808 Plan: Refractory mantle cell lymphoma -Noted to have refractory disease with disease progression following ibrutinib and bendamustine/rituximab -He was started on venetoclax, but has had multiple admissions at [facility] over the past 6 weeks due to progressive weakness and hyponatremia -Unclear if hyponatremia was secondary to venetoclax -He was transitioned to Revlimid, which she has been taking for approximately 1 week prior to admission -PET/CT at [facility] on 08/08/2022 noted interval disease progression from PET on 04/17/2022 along with right lower lobe consolidation concerning for infection -Given the concern for pneumonia along with recurrent hyponatremia, I did recommend holding Revlimid at this time due to concern for potential exacerbation of infection -I did discuss this with Mr. Arevalo and his family, they were agreeable to holding Revlimid at this time -He did have significant abdominal distention with exam findings concerning for ascites -He should have abdominal ultrasound to assess for the presence of large volume ascites -Since I do not have access to the records at [facility], I am not sure if his current presentation is due to disease progression or not -For now, recommend continuing current management with treatment of pneumonia and hyponatremia through primary and nephrology teams -If there is no improvement in his clinical status, his primary oncologist at [facility] Dr. Yudi Torres should be contacted to better understand his clinical course Pancytopenia -Likely secondary to Revlimid along with superimposed pneumonia -Holding Revlimid as above -Transfuse for hemoglobin less than 7 and/or platelet count less than 10,000 or bleeding Pneumonia, likely healthcare acquired -Has had admissions at [facility] over the past 6 weeks -He is currently on ceftriaxone and azithromycin -He is currently stable at this time, but treatment could be broadened to include coverage for MRSA and gram-negative organisms given his recent hospitalizations
[2022-08-10] MEDS ORDERED: VANCOMYCIN IV PER PHARMACY 1 EACH MISC MISCELLANE PRN (14:15)
--- NOTE | 2022-08-10 14:18 | P.HPIM ---
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 Patient normally follows at [facility] for his lymphoma. Patient has history of recurrent pleural effusions requiring thoracentesis, last thoracentesis was done 2 days ago. Patient was recently discharged from [facility] on 08/02/22.He had a PET scan completed at [facility] earlier this week in which results do show interval progression of lymphadenopathy and worsening of his lymphoma. He does report generalized weakness and a mild tremor which he attributes to his hyponatremia. noticed that the patient had swelling of lower extremities Chest x-ray done showed right basilar air space opacities could represent atelectasis versus developing pneumonia Initial lab work done showed a white count of 4.1, hemoglobin 12, platelet count 71, sodium 119, potassium 5.9, creatinine 2.60. Patient was admitted to internal medicine team for further evaluation and treatment REVIEW OF SYSTEMS: CONSTITUTIONAL: As mentioned in HPI HEENT: No recent visual problems or hearing problems. Denied any sore throat. CARDIOVASCULAR: No chest pain, orthopnea, PND, no palpitations, no syncope. PULMONARY: No shortness of breath, no cough, no hemoptysis. GASTROINTESTINAL: No diarrhea, no nausea, no vomiting, no abdominal pain. NEUROLOGICAL: No headaches, no weakness, no numbness. HEMATOLOGICAL: Denies any bleeding or petechiae. GENITOURINARY: Denies any burning micturition, frequency, or urgency. MUSCULOSKELETAL/RHEUMATOLOGICAL: Denies any joint pain, swelling, or any muscle pain. ENDOCRINE: Denies any polyuria or polydipsia. The rest of the 14-point review of systems is negative. PHYSICAL EXAMINATION: GENERAL: The patient is alert and oriented x3, not in any acute distress. Well developed, well nourished. HEENT: Pupils are round and equally reacting to light. EOMI. No scleral icterus. No conjunctival pallor. Normocephalic, atraumatic. No pharyngeal erythema. No thyromegaly. CARDIOVASCULAR: S1 and S2 present. No murmurs, rubs, or gallops. PULMONARY: Diminished breath sounds at the bases bilaterally ABDOMEN: Soft, nontender, distended, normoactive bowel sounds. No palpable organomegaly. MUSCULOSKELETAL: No joint swelling or deformity. EXTREMITIES: 1+ pitting edema of lower extremities bilaterally NEUROLOGICAL: Gross neurological examination did not reveal any focal deficits. SKIN: No rashes. Assessment and plan Hyponatremia, acute on chronic Hyperkalemia Acute kidney injury Pancytopenia Bacterial pneumonia Generalized weakness History of recurrent pleural effusion, status post thoracentesis 6. History of mantle cell lymphoma, followed at [facility]. Possible right lower lobe pneumonia. History of atrial fibrillation, with prior ablation. Plan; Monitor CBC Monitor CMP Strict's and O's Daily weights Continue IV Lasix Start patient on broad-spectrum antibiotics in form of Zosyn and vancomycin We'll consider Samsca if sodium level does not improve Patient received dextrose, insulin and lokelma for hyperkalemia Ultrasound abdominal ordered Pulmonology consulted Consult nephrology Past Medical History Past Medical History: Atrial Fibrillation, Cancer, Hypertension, Thyroid Disorder Additional Past Medical History / Comment(s): hyponatremia History of Any Multi-Drug Resistant Organisms: None Reported Past Surgical History: Cardiac Ablation, Hernia Repair Past Anesthesia/Blood Transfusion Reactions: No Reported Reaction Past Psychological History: No Psychological Hx Reported Smoking Status: Never smoker Past Alcohol Use History: None Reported Past Drug Use History: None Reported - Past Family History Mother Family Medical History: No Reported History Father Additional Family Medical History / Comment(s): Heart conditions Medications and Allergies Home Medications Medication Instructions Recorded Confirmed Type Aspirin EC [Ecotrin Low Dose] 81 mg PO HS 08/10/22 08/10/22 History Lenalidomide [Revlimid] 15 mg PO HS 08/10/22 08/10/22 History Levothyroxine Sodium [Synthroid] 88 mcg PO DAILY 08/10/22 08/10/22 History Metoprolol Succinate (ER) [Toprol 25 mg PO DAILY 08/10/22 08/10/22 History Xl] Multivit/Iron Sulf/Folic Acid 1 tab PO DAILY 08/10/22 08/10/22 History [Multivitamin with Iron] Sodium Chloride Tab 1 gm PO TID 08/10/22 08/10/22 History Terazosin HCl 10 mg PO DAILY 08/10/22 08/10/22 History Allergies Allergy/AdvReac Type Severity Reaction Status Date / Time No Known Allergies Allergy Verified 08/10/22 12:56 Physical Exam Vitals: Vital Signs Temp Pulse Resp BP Pulse Ox 08/10/22 09:45 77 16 123/68 95 08/10/22 06:10 76 22 105/56 97 08/10/22 05:07 75 20 116/65 96 08/10/22 04:11 76 16 113/74 95 08/10/22 03:41 75 18 103/70 96 08/10/22 02:15 75 16 77/50 96 08/10/22 01:30 79 78/60 96 08/10/22 01:05 97.6 F 80 18 86/47 98 08/09/22 22:00 93/62 08/09/22 21:30 76 18 120/67 97 08/09/22 20:00 126/70 08/09/22 19:30 129/77 96 08/09/22 19:00 138/86 08/09/22 18:30 96 08/09/22 17:55 97.3 F L 82 18 100/63 9 L Intake and Output 08/09/22 08/10/22 08/10/22 22:59 06:59 14:59 Other: Weight 115.666 kg Results CBC & Chem 7: 08/10/22 05:28 08/10/22 05:28 Labs: Abnormal Lab Results - Last 24 Hours (Table) 08/09/22 08/10/22 08/10/22 Range/Units 21:42 01:13 02:09 WBC (3.8-10.6) k/uL RBC 3.87 L (4.30-5.90) m/uL Hgb 12.0 L (13.0-17.5) gm/dL Hct 34.8 L (39.0-53.0) % RDW 15.8 H (11.5-15.5) % Plt Count 71 L (150-450) k/uL Lymphocytes # 0.4 L (1.0-4.8) k/uL Sodium 119 L* (137-145) mmol/L Potassium 5.9 H (3.5-5.1) mmol/L Chloride 91 L (98-107) mmol/L Carbon Dioxide 18 L (22-30) mmol/L BUN 81 H (9-20) mg/dL Creatinine 2.60 H (0.66-1.25) mg/dL Glucose 100 H (74-99) mg/dL Calcium 8.3 L (8.4-10.2) mg/dL Phosphorus 5.3 H (2.5-4.5) mg/dL Magnesium 2.7 H (1.6-2.3) mg/dL Total Protein 4.9 L (6.3-8.2) g/dL Albumin 2.7 L (3.5-5.0) g/dL TSH 5.670 H (0.465-4.680) mIU/L Urine Protein Trace H (Negative) 08/10/22 08/10/22 Range/Units 05:28 05:28 WBC 2.8 L (3.8-10.6) k/uL RBC 3.69 L (4.30-5.90) m/uL Hgb 11.5 L (13.0-17.5) gm/dL Hct 33.5 L (39.0-53.0) % RDW 15.9 H (11.5-15.5) % Plt Count 69 L (150-450) k/uL Lymphocytes # 0.1 L (1.0-4.8) k/uL Sodium 120 L (137-145) mmol/L Potassium (3.5-5.1) mmol/L Chloride 93 L (98-107) mmol/L Carbon Dioxide 18 L (22-30) mmol/L BUN 78 H (9-20) mg/dL Creatinine 2.32 H (0.66-1.25) mg/dL Glucose (74-99) mg/dL Calcium 7.7 L (8.4-10.2) mg/dL Phosphorus (2.5-4.5) mg/dL Magnesium (1.6-2.3) mg/dL Total Protein (6.3-8.2) g/dL Albumin (3.5-5.0) g/dL TSH (0.465-4.680) mIU/L Urine Protein (Negative)
--- NOTE | 2022-08-10 15:43 | XR ---
EXAMINATION TYPE: XR chest 2V DATE OF EXAM: 08/10/2022 2:50 PM COMPARISON: Chest x-ray 08/10/2022 TECHNIQUE: XR chest 2V . CLINICAL INDICATION:Male, 76 years old with history of Pneumonia; FINDINGS: Lungs/Pleura: Small moderate right pleural effusion with layering of fluid in the minor fissure. No e vidence for pneumothorax. She airspace opacities within the right midlung. Right basilar atelectasis. Left lung is clear. Pulmonary vascularity: Unremarkable. Heart/mediastinum: Cardiomediastinal silhouette is unremarkable. Musculoskeletal: No acute osseous pathology. Lines/Tubes: [id number] projecting over the left hemithorax with distal tip at the cavoatrial junction. IMPRESSION: Essentially unchanged small to moderate right size pleural effusion with associated airspace opacitie s.
[2022-08-10] MEDS: VANCOMYCIN 1,750 MG in SODIUM CHLORIDE 0.9% 500 ML 500 ML IVPB SCH (15:47)
[2022-08-10] MEDS: PIPERACILLIN-TAZOBACTAM 3.375 GM in SODIUM CHLORIDE 0.9% 100 ML IVPB SCH (15:47)
[2022-08-10] MEDS: ACETAMINOPHEN TAB 325 MG TAB PO PRN (16:00)
[2022-08-10] MEDS ORDERED: TOLVAPTAN 15 MG TABLET PO ONE (17:53)
[2022-08-10] MEDS ORDERED: PANTOPRAZOLE 40 MG TABLET PO SCH (18:39)
--- NOTE | 2022-08-10 18:49 | US ---
EXAMINATION TYPE: US abdomen limited DATE OF EXAM: 08/10/2022 COMPARISON: PET CT 2021 CLINICAL INDICATION: Male, 76 years old with history of Distention; Distention, ascites check. Technique: Grayscale imaging of the abdomen. Findings: Fluid seen within all four quadrants of the abdomen. Greater amount of fluid seen within the right abdomen. IMPRESSION: Small ascites.
[2022-08-10] MEDS: ASPIRIN 81 MG PO SCH (20:26)
[2022-08-11] MEDS: PIPERACILLIN-TAZOBACTAM 3.375 GM in SODIUM CHLORIDE 0.9% 100 ML IVPB SCH ×4 (00:03→23:50)
[2022-08-11] MEDS: ACETAMINOPHEN TAB 325 MG TAB PO PRN ×3 (02:55→18:20)
[2022-08-11] MEDS: ONDANSETRON 4 MG/2 ML VIAL IVP PRN ×3 (02:55→15:29)
[2022-08-11] MEDS: MIDODRINE 5 MG TAB PO SCH ×4 (06:15→16:06)
[2022-08-11 08:26] LABS: Basophils % (A) 0 %; Eosinophils % (A) 1 %; HCT 35.8 % (39.0-53.0); HGB 12.2 gm/dL (13.0-17.5); Lymphocytes # (A) 0.1 k/uL (1.0-4.8); Lymphocytes % (A) 4 %; MCH 31.6 pg (25.0-35.0); MCHC 34.1 g/dL (31.0-37.0); MCV 92.6 fL (80.0-100.0); Mean Platelet Volume 9.4; Monocytes # (A) 0.1 k/uL (0-1.0); Monocytes % (A) 6 %; Neutrophils # (A) 1.9 k/uL (1.3-7.7); Neutrophils % (A) 87 %; RBC 3.86 m/uL (4.30-5.90); RDW 15.4 % (11.5-15.5); WBC 2.1 k/uL (3.8-10.6)
[2022-08-11] MEDS: PANTOPRAZOLE 40 MG/10 ML VIAL IVP SCH ×2 (08:28→21:30)
[2022-08-11] MEDS: LEVOTHYROXINE 88 MCG TAB PO SCH (08:28)
[2022-08-11] MEDS: METOPROLOL SUCCINATE (ER) 25 MG TAB.ER.24H PO SCH (08:28)
[2022-08-11 08:37] LABS: Albumin 2.3 g/dL (3.5-5.0); Calcium 7.8 mg/dL (8.4-10.2); Magnesium 2.4 mg/dL (1.6-2.3); Phosphorus 5.6 mg/dL (2.5-4.5); Total Bilirubin 1.1 mg/dL (0.2-1.3); Total Protein 4.3 g/dL (6.3-8.2)
[2022-08-11 08:51] LABS: Platelet Count 64 k/uL (150-450)
[2022-08-11] MEDS ORDERED: DOXAZOSIN 4 MG TAB PO SCH (09:00)
[2022-08-11] MEDS ORDERED: FUROSEMIDE 10 MG/ML 10 ML VIAL IV SCH (09:15)
[2022-08-11] MEDS: FUROSEMIDE 10 MG/ML 4 ML VIAL IV SCH ×4 (09:27→23:50)
[2022-08-11 10:04] LABS: Toxic Granulation Present; Toxic Vacuolation Present
[2022-08-11] MEDS ORDERED: TOLVAPTAN 15 MG TABLET PO ONE ×2 (10:28→19:10)
--- NOTE | 2022-08-11 10:28 | P.PN ---
Subjective Patient is seen for follow-up for hyponatremia and acute kidney injury. History of mantle cell lymphoma Hypervolemic hyponatremia, status post IV Lasix. Patient also received a dose of Samsca yesterday. Sodium is 123 today Objective - Vital Signs Vital signs: Vital Signs Temp 97.7 F 08/11/22 08:08 Pulse 90 08/11/22 08:08 Resp 20 08/11/22 08:08 BP 97/62 08/11/22 08:08 Pulse Ox 95 08/11/22 09:25 FiO2 Intake & Output 08/10/22 08/11/22 08/11/22 18:59 06:59 18:59 Intake Total 238 Output Total 750 400 Balance -512 -400 Weight 115.666 kg 107.5 kg Intake: Oral 238 Output: Urine 500 400 Post Void Residual 250 Other: Voiding Method Urinal Urinal Urinal - Exam Patient is awake, comfortable, no acute distress Tachypneic Examination of the heart S1 and S2 Examination of the lungs bilateral breath sounds are heard Abdomen is soft distended nontender Examination lower extremity shows 2-3+ edema bilaterally RESPIRATORY SUPPORT TECHNICIAN exam grossly intact - Labs CBC & Chem 7: 08/11/22 08:15 08/11/22 08:15 Labs: Abnormal Lab Results - Last 24 Hours (Table) 08/10/22 08/10/22 08/11/22 Range/Units 05:28 15:10 08:15 WBC 2.1 L (3.8-10.6) k/uL RBC 3.86 L (4.30-5.90) m/uL Hgb 12.2 L (13.0-17.5) gm/dL Hct 35.8 L (39.0-53.0) % Plt Count 64 L (150-450) k/uL Lymphocytes # 0.1 L (1.0-4.8) k/uL Sodium 120 L (137-145) mmol/L Chloride (98-107) mmol/L Carbon Dioxide (22-30) mmol/L BUN (9-20) mg/dL Creatinine (0.66-1.25) mg/dL Glucose (74-99) mg/dL Calcium (8.4-10.2) mg/dL Phosphorus (2.5-4.5) mg/dL Magnesium (1.6-2.3) mg/dL Total Protein (6.3-8.2) g/dL Albumin (3.5-5.0) g/dL Procalcitonin 1.52 H (0.02-0.09) ng/mL 08/11/22 Range/Units 08:15 WBC (3.8-10.6) k/uL RBC (4.30-5.90) m/uL Hgb (13.0-17.5) gm/dL Hct (39.0-53.0) % Plt Count (150-450) k/uL Lymphocytes # (1.0-4.8) k/uL Sodium 123 L (137-145) mmol/L Chloride 93 L (98-107) mmol/L Carbon Dioxide 21 L (22-30) mmol/L BUN 78 H (9-20) mg/dL Creatinine 2.13 H (0.66-1.25) mg/dL Glucose 133 H (74-99) mg/dL Calcium 7.8 L (8.4-10.2) mg/dL Phosphorus 5.6 H (2.5-4.5) mg/dL Magnesium 2.4 H (1.6-2.3) mg/dL Total Protein 4.3 L (6.3-8.2) g/dL Albumin 2.3 L (3.5-5.0) g/dL Procalcitonin (0.02-0.09) ng/mL Microbiology - Last 24 Hours (Table) 08/10/22 15:57 Nasal Screen MRSA/MSSA - Preliminary Nasal Swab 08/09/22 23:30 Blood Culture - Preliminary Blood No Growth after 24 hours 08/09/22 23:30 Blood Culture - Preliminary Blood No Growth after 24 hours Assessment and Plan Assessment: 1. Hyponatremia, currently hypervolemic, slightly improved with Lasix and Samsca. Urine osmolality was 532. 2. Mantle cell lymphoma being followed at [facility] currently maintained on Revlimid 3. Acute kidney injury secondary to hypotension, rule out urine retention 4. Non-gap metabolic acidosis secondary to acute kidney injury 5. Volume overload Plan: Increase Lasix Repeat Samsca today Repeat sodium this evening
--- NOTE | 2022-08-11 11:03 | CT ---
EXAMINATION TYPE: CT abdomen pelvis wo con DATE OF EXAM: 08/11/2022 HISTORY: Rule out obstructive uropathy, Hx of mantle cell lymphoma CT DLP: 1625 mGycm. Automated Exposure Control for Dose Reduction was Utilized. TECHNIQUE: CT scan of the abdomen and pelvis is performed without oral or IV contrast. COMPARISON: Most recent PET CT December 07, 2021 FINDINGS: Within the limitations of a non-contrast study, the following observations are made. LUNG BASES: New small right greater than left pleural effusions. There is associated right basilar co mpressive atelectasis. Coronary artery calcification is redemonstrated. Calcification at level of the mitral and aortic valves again seen. LIVER/GB: Gallbladder has distended margins. Dependent density favors gallbladder sludge. Ascites now surrounds liver. PANCREAS: No significant abnormality is seen. SPLEEN: Ascites surrounding the spleen. ADRENALS: No significant abnormality is seen. KIDNEYS: No renal stones or hydronephrosis is present bilaterally. BOWEL: No suspicious small or large bowel dilatation. Distal colonic diverticula are redemonstrated. GENITAL ORGANS: No gross abnormality seen. LYMPH NODES: New enlarged lymph nodes throughout the abdominal mesentery with mild fat stranding and ill-defined fluid. New enlarged lymph nodes in the retroperitoneum of the abdomen extending along the iliac chain vessels. OSSEOUS STRUCTURES: Moderate disc space narrowing lumbosacral junction. OTHER: Mild to moderate diffuse subcutaneous edema greatest over right aspect and left posterior aspe ct. New free air anterior abdominal wall seen best on Axial image 69. IMPRESSION: 1. New free air is present upper to mid abdomen. Etiology uncertain. 2. New adenopathy throughout the abdomen and pelvis involving peritoneum or retroperitoneum likely re flecting active lymphoma recurrence. 3. New small right greater than left pleural effusions. New small to moderate amount of intraperitone al ascites greatest in the right abdomen. New mild to moderate diffuse soft tissue anasarca. Findings consistent with fluid overload state. Correlate clinically. Critical results communicated to patient's nurse via telephone at time of dictation A Red level critical message alert has been initiated for Oli Armando MD via the [employer] Critical Results System on 08/11/2022 11:01 AM. This message alert has been sent to Oli Armando MD via the preferences provided by the clinician for the receipt of Radiology Critical Findings. [place] ID [id number].
--- NOTE | 2022-08-11 12:56 | P.PN ---
Subjective Progress Note Date: 08/11/22 76-year-old male with a history of mantle cell lymphoma, who typically is followed at the [facility]. 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 Recently, they've been having issues with low sodiums, as well as recurrent pleural effusions, requiring thoracentesis. The patient states that he's had at least 6 thoracentesis in the recent past. He came into the hospital because he was directed by his doctors there to be evaluated. The patient is not a particularly good historian and is seen in the emergency department, room 15. He is on room air. Is not receiving any IV fluids. His initial sodium was 119. His chest x-ray shows fluid overload pulmonary edema with small effusions, and a possible right lower lobe infiltrate. The patient also has a history of atrial fibrillation, and hypertension. He's had a cardiac ablation in the past. He is a lifelong nonsmoker. White count 2.8, hemoglobin 11.5, hematocrit 33.5, and a platelet count of 69,000. Sodium 120 potassium 4.9, chlorides 93, CO2 18, anion gap 9, BUN 78, creatinine 2.32. Urine was negative. Troponin was normal. The patient is seen today 08/11/2022 in follow-up on the selective care unit. He is currently resting comfortably in bed. Awake and alert in no acute distress. Maintaining O2 saturations in the 90s on room air. He's having some ongoing issues with nausea. His normal saline at 10 MLS per hour. Chest x-ray continues to show small to moderate right-sided pleural effusion was associated airspace opacities. Abdominal ultrasound revealed fluid seen in all 4 quadrants mostly in the right. Small ascites. Computed tomography scan of the abdomen and pelvis today reveals new free air present in the mid to upper abdomen. New adenopathy throughout the abdomen and pelvis involving peritoneum and retroperitoneum likely reflecting active lymphoma recurrence. New small right greater than left pleural effusions. New small to moderate amount of intraperitoneal ascites greatest in the right abdomen. Mild to moderate diffuse soft tissue anasarca. Findings consistent with fluid overload state. This is compared to a PET scan from 12/07/2021. Culture reveals no growth to date. White count 2.1. Hemoglobin 12.2. Platelets 64,000. Sodium improved to 123. Potassium 5.0. Bicarb 21. He wasn't 78. Creatinine 2.13. Glucose 133. Urine legionella antigen negative. Pro-calcitonin 1.52. He is currently on antibiotics in the form of vancomycin and Zosyn. IV Lasix 40 mg every 8 hours. Received Samsca yesterday. Currently in a -900 ML balance. Objective - Vital Signs Vital signs: Vital Signs Temp 97.7 F 08/11/22 08:08 Pulse 90 08/11/22 08:08 Resp 20 08/11/22 08:08 BP 97/62 08/11/22 08:08 Pulse Ox 95 08/11/22 09:25 FiO2 Intake & Output 08/10/22 08/11/22 08/11/22 18:59 06:59 18:59 Intake Total 238 Output Total 750 400 300 Balance -512 -400 -300 Weight 115.666 kg 107.5 kg Intake: Oral 238 Output: Urine 500 400 300 Post Void Residual 250 Other: Voiding Method Urinal Urinal Urinal - Exam GENERAL EXAM: Alert, pleasant 76-year-old male, on room air, currently nauseat ed, fairly comfortable in no apparent distress. HEAD: Normocephalic. EYES: Normal reaction of pupils, equal size. NOSE: Clear with pink turbinates. THROAT: No erythema or exudates. NECK: No masses, no JVD. CHEST: No chest wall deformity. LUNGS: Equal air entry with crackles in the bilateral bases. CVS: S1 and S2 normal with no audible murmur, regular rhythm. ABDOMEN: Distended, soft, no hepatosplenomegaly, normal bowel sounds, no guarding or rigidity. SPINE: No scoliosis or deformity SKIN: No rashes CENTRAL NERVOUS SYSTEM: No focal deficits, tone is normal in all 4 extremities. EXTREMITIES: There is no peripheral edema. No clubbing, no cyanosis. Peripheral pulses are intact. - Labs CBC & Chem 7: 08/11/22 08:15 08/11/22 08:15 Labs: Abnormal Lab Results - Last 24 Hours (Table) 08/10/22 08/10/22 08/11/22 Range/Units 05:28 15:10 08:15 WBC 2.1 L (3.8-10.6) k/uL RBC 3.86 L (4.30-5.90) m/uL Hgb 12.2 L (13.0-17.5) gm/dL Hct 35.8 L (39.0-53.0) % Plt Count 64 L (150-450) k/uL Lymphocytes # 0.1 L (1.0-4.8) k/uL Sodium 120 L (137-145) mmol/L Chloride (98-107) mmol/L Carbon Dioxide (22-30) mmol/L BUN (9-20) mg/dL Creatinine (0.66-1.25) mg/dL Glucose (74-99) mg/dL Calcium (8.4-10.2) mg/dL Phosphorus (2.5-4.5) mg/dL Magnesium (1.6-2.3) mg/dL Total Protein (6.3-8.2) g/dL Albumin (3.5-5.0) g/dL Procalcitonin 1.52 H (0.02-0.09) ng/mL 08/11/22 Range/Units 08:15 WBC (3.8-10.6) k/uL RBC (4.30-5.90) m/uL Hgb (13.0-17.5) gm/dL Hct (39.0-53.0) % Plt Count (150-450) k/uL Lymphocytes # (1.0-4.8) k/uL Sodium 123 L (137-145) mmol/L Chloride 93 L (98-107) mmol/L Carbon Dioxide 21 L (22-30) mmol/L BUN 78 H (9-20) mg/dL Creatinine 2.13 H (0.66-1.25) mg/dL Glucose 133 H (74-99) mg/dL Calcium 7.8 L (8.4-10.2) mg/dL Phosphorus 5.6 H (2.5-4.5) mg/dL Magnesium 2.4 H (1.6-2.3) mg/dL Total Protein 4.3 L (6.3-8.2) g/dL Albumin 2.3 L (3.5-5.0) g/dL Procalcitonin (0.02-0.09) ng/mL Microbiology - Last 24 Hours (Table) 08/10/22 15:57 Nasal Screen MRSA/MSSA - Preliminary Nasal Swab 08/09/22 23:30 Blood Culture - Preliminary Blood No Growth after 24 hours 08/09/22 23:30 Blood Culture - Preliminary Blood No Growth after 24 hours Assessment and Plan Assessment: Weakness, with hyponatremia, chronic. Did receive Samsca. Current sodium 123. 119 initially. History of recurrent pleural effusion, status post thoracentesis 6. Computed tomography scan reveals small right greater than left pleural effusions. History of mantle cell lymphoma, followed at [facility]. Computed tomography scan of the abdomen and pelvis today reveals new free air present in the mid to upper abdomen. New adenopathy throughout the abdomen and pelvis involving peritoneum and retroperitoneum likely reflecting active lymphoma recurrence. New small right greater than left pleural effusions. New small to moderate amount of intraperitoneal ascites greatest in the right abdomen. Mild to moderate diffuse soft tissue anasarca. Findings consistent with fluid overload state. This is compared to a PET scan from 12/07/2021. Possible right lower lobe pneumonia. Pro-calcitonin 1.52. Currently on vancomycin and Zosyn. Acute renal failure secondary to dehydration Pancytopenia secondary to chemotherapy History of atrial fibrillation, with prior ablation. History of hypertension. Lifelong nonsmoker. Plan: The patient was seen and evaluated Chest x-ray, computed tomography scan, medications and labs reviewed Currently stable and on room air Having ongoing issues with nausea Surgical services consulted regarding CT scan results Nephrology and oncology following as well We'll continue to follow and make further recommendations based on his clinical status I have personally seen and examined the patient, performed the documentation and the assessment and plan as written. Number of minutes spent on the visit: 10.
--- NOTE | 2022-08-11 13:25 | P.PN ---
Subjective Progress Note Date: 08/11/22 Principal diagnosis: Mantle cell lymphoma -Developed increased nausea overnight resulting in a couple episodes of emesis -CT abdomen/pelvis without contrast initially ordered to assess for obstructive uropathy from retroperitoneal lymphadenopathy revealed free air in the abdomen -Currently, Mr. Arevalo notes having increased nausea, denies any abdominal pain, fevers, or chills Objective - Vital Signs Vital signs: Vital Signs Temp 97.9 F 08/11/22 11:33 Pulse 90 08/11/22 11:33 Resp 20 08/11/22 11:33 BP 86/74 08/11/22 11:33 Pulse Ox 95 08/11/22 11:33 FiO2 Intake & Output 08/10/22 08/11/22 08/11/22 18:59 06:59 18:59 Intake Total 238 Output Total 750 400 300 Balance -512 -400 -300 Weight 115.666 kg 107.5 kg Intake: Oral 238 Output: Urine 500 400 300 Post Void Residual 250 Other: Voiding Method Urinal Urinal Urinal - Constitutional Constitutional Comment(s): Fatigued appearing General appearance: Present: cooperative, no acute distress - Respiratory Respiratory: bilateral: CTA - Cardiovascular Rhythm: regular - Peripheral edema leg Peripheral Edema: bilateral: 2+ - Gastrointestinal Gastrointestinal Comment(s): Tympanic to percussion General gastrointestinal: Present: distended, normal bowel sounds, soft. Absent: tenderness - Integumentary Integumentary: Present: pale - Neurologic Neurologic: Present: CNII-XII intact. Absent: focal deficits - Labs CBC & Chem 7: 08/11/22 08:15 08/11/22 08:15 Labs: Abnormal Lab Results - Last 24 Hours (Table) 08/10/22 08/10/22 08/11/22 Range/Units 05:28 15:10 08:15 WBC 2.1 L (3.8-10.6) k/uL RBC 3.86 L (4.30-5.90) m/uL Hgb 12.2 L (13.0-17.5) gm/dL Hct 35.8 L (39.0-53.0) % Plt Count 64 L (150-450) k/uL Lymphocytes # 0.1 L (1.0-4.8) k/uL Sodium 120 L (137-145) mmol/L Chloride (98-107) mmol/L Carbon Dioxide (22-30) mmol/L BUN (9-20) mg/dL Creatinine (0.66-1.25) mg/dL Glucose (74-99) mg/dL Calcium (8.4-10.2) mg/dL Phosphorus (2.5-4.5) mg/dL Magnesium (1.6-2.3) mg/dL Total Protein (6.3-8.2) g/dL Albumin (3.5-5.0) g/dL Procalcitonin 1.52 H (0.02-0.09) ng/mL 08/11/22 Range/Units 08:15 WBC (3.8-10.6) k/uL RBC (4.30-5.90) m/uL Hgb (13.0-17.5) gm/dL Hct (39.0-53.0) % Plt Count (150-450) k/uL Lymphocytes # (1.0-4.8) k/uL Sodium 123 L (137-145) mmol/L Chloride 93 L (98-107) mmol/L Carbon Dioxide 21 L (22-30) mmol/L BUN 78 H (9-20) mg/dL Creatinine 2.13 H (0.66-1.25) mg/dL Glucose 133 H (74-99) mg/dL Calcium 7.8 L (8.4-10.2) mg/dL Phosphorus 5.6 H (2.5-4.5) mg/dL Magnesium 2.4 H (1.6-2.3) mg/dL Total Protein 4.3 L (6.3-8.2) g/dL Albumin 2.3 L (3.5-5.0) g/dL Procalcitonin (0.02-0.09) ng/mL Microbiology - Last 24 Hours (Table) 08/10/22 15:57 Nasal Screen MRSA/MSSA - Preliminary Nasal Swab 08/09/22 23:30 Blood Culture - Preliminary Blood No Growth after 24 hours 08/09/22 23:30 Blood Culture - Preliminary Blood No Growth after 24 hours - Imaging and Cardiology CT scan - abdomen: report reviewed, image reviewed Assessment and Plan (1) Mantle cell lymphoma Current Visit: Yes Status: Acute Code(s): C83.10 - MANTLE CELL LYMPHOMA, UNSPECIFIED SITE SNOMED Code(s): 019950182 (2) Pancytopenia Current Visit: Yes Status: Acute Code(s): D61.818 - OTHER PANCYTOPENIA SNOMED Code(s): 679868675 (3) Hyponatremia Current Visit: Yes Status: Acute Code(s): E87.1 - HYPO-OSMOLALITY AND HYPONATREMIA SNOMED Code(s): 76407226 (4) Intra-abdominal free air of unknown etiology Current Visit: Yes Status: Acute Code(s): K66.8 - OTHER SPECIFIED DISORDERS OF PERITONEUM SNOMED Code(s): 12400585 (5) Right lower lobe pneumonia Current Visit: Yes Status: Acute Code(s): J18.9 - PNEUMONIA, UNSPECIFIED ORGANISM SNOMED Code(s): 771299744 Plan: Refractory mantle cell lymphoma -Noted to have refractory disease with disease progression following ibrutinib and bendamustine/rituximab -He was started on venetoclax, but has had multiple admissions at [facility] over the past 6 weeks due to progressive weakness and hyponatremia -Unclear if hyponatremia was secondary to venetoclax -He was transitioned to Revlimid, which she has been taking for approximately 1 week prior to admission -PET/CT at [facility] on 08/08/2022 noted interval disease progression from PET on 04/17/2022 along with right lower lobe consolidation concerning for infection -Given the concern for pneumonia along with recurrent hyponatremia, I did recommend holding Revlimid at this time due to concern for potential exacerbation of infection -CT abdomen/pelvis without contrast originally ordered to assess for obstructive uropathy given retroperitoneal lymphadenopathy noted intra-abdominal free air -Clinically, there is no evidence of peritonitis, rebound, or guarding -Case was discussed with multiple physicians, including Dr. Reddy, Dr. Altamirano, and primary generator switchboard operator at [facility] Dr. Torres -Based on my discussion with Dr. Torres, she was concerned that his recurrent admissions with BJ and hyponatremia could be due to disease progression from his mantle cell lymphoma and not from venetoclax -Given the same presentation off of venetoclax, he does appear that his current presentation with BJ and hyponatremia could be secondary to progression of his mantle cell lymphoma -Mantle cell lymphoma can affect the bowel. If the imaging findings do represe nt bowel perforation, this could be consistent with progression of the mantle cell lymphoma -Based on my discussion with Dr. Torres, surgery would not be of benefit if this was related to mantle cell lymphoma -This was discussed with Dr. Altamirano -If he does not have improvement in his clinical status overall, Dr. Torres was not opposed to the idea of comfort care or hospice -This was discussed with Mr. Arevalo's family. They seem to be in agreement with this line of thought Hyponatremia, BJ -Improvement in sodium and creatinine from admission -Sodium at 123 with creatinine 2.12 compared to sodium 119 and creatinine 2.6 on admission -Continue management with nephrology, appreciate their assistance Pneumonia, likely healthcare acquired -Has had admissions at [facility] over the past 6 weeks -Initially started on on ceftriaxone and azithromycin, but was broadened to vancomycin and Zosyn given the risk for MRSA and drug-resistant organisms Pancytopenia -Likely secondary to Revlimid along with superimposed pneumonia -Holding Revlimid as above -Transfuse for hemoglobin less than 7 and/or platelet count less than 10,000 or bleeding
--- NOTE | 2022-08-11 13:53 | P.PN ---
Subjective Progress Note Date: 08/11/22 patient is a 76-year-old gentleman with past medical history significant for mantle cell lymphoma, hyponatremia who presented to the ER at the direction of his lacquer spray booth operator for hyponatremia. Patient normally follows at [facility] for his lymphoma. Patient has history of recurrent pleural effusions requiring thoracentesis, last thoracentesis was done 2 days ago. Patient was recently discharged from [facility] on 08/02/22.He had a PET scan completed at [facility] earlier this week in which results do show interval progression of lymphadenopathy and worsening of his lymphoma. He does report generalized weakness and a mild tremor which he attributes to his hyponatremia. noticed that the patient had swelling of lower extremities Chest x-ray done showed right basilar air space opacities could represent atelectasis versus developing pneumonia Initial lab work done showed a white count of 4.1, hemoglobin 12, platelet count 71, sodium 119, potassium 5.9, creatinine 2.60. Patient was admitted to internal medicine team for further evaluation and treatment 08/11. Patient seen and examined. Patient overnight having nausea with vomiting, also complaining of abdominal cramps. Sodium improved to 123, potassium is 5 this morning. Hematology oncology order CT abdominal and pelvis which showed free air in the abdominal, patient is still having abdominal lifts and cranes inspector mps, patient made nothing by mouth. General surgery consulted REVIEW OF SYSTEMS: CONSTITUTIONAL: No fever, no malaise,. CARDIOVASCULAR: No chest pain, no palpitations, no syncope. PULMONARY: No shortness of breath, no cough, GASTROINTESTINAL: As mentioned in HPI NEUROLOGICAL: No headaches, no weakness, PHYSICAL EXAMINATION: GENERAL: The patient is alert and oriented x3, not in any acute distress. Well developed, well nourished. HEENT: Pupils are round and equally reacting to light. EOMI. No scleral icterus. No conjunctival pallor. Normocephalic, atraumatic. No pharyngeal erythema. No thyromegaly. CARDIOVASCULAR: S1 and S2 present. No murmurs, rubs, or gallops. PULMONARY: Chest is clear to auscultation, no wheezing or crackles. ABDOMEN: No tenderness, no guarding, distended normoactive bowel sounds. No palpable organomegaly. MUSCULOSKELETAL: No joint swelling or deformity. EXTREMITIES: No cyanosis, clubbing, or pedal edema. NEUROLOGICAL: Gross neurological examination did not reveal any focal deficits. SKIN: No rashes. Assessment and plan Hyponatremia, acute on chronic Intra-abdominal free air Hyperkalemia Acute kidney injury Pancytopenia Bacterial pneumonia Generalized weakness History of recurrent pleural effusion, status post thoracentesis 6. History of mantle cell lymphoma, followed at [facility]. Possible right lower lobe pneumonia. History of atrial fibrillation, with prior ablation. Plan; Monitor CBC Monitor CMP Strict's and O's Daily weights Continue IV Lasix Continue Zosyn and vancomycin Continue Samsca Patient was made nothing by mouth overnight secondary to nausea, currently nausea and vomiting improved, CT abdominal and pelvis without contrast showed free air, Surgery consulted Ultrasound abdominal showed small ascites Pulmonary following Nephrology following Hematology following, discussed with patient global engineering manager Dr. Torres, who was concerned that his recurrent admissions with BJ and hyponatremia could be due to disease progression from his mantle cell lymphoma and not from venetoclax Mantle cell lymphoma can affect the bowel. If the imaging findings do represent bowel perforation, this could be consistent with progression of the mantle cell lymphoma, hematology oncology in that scenario will suggest to pursue palliative and comfort care discussion Objective - Vital Signs Vital signs: Vital Signs Temp 98.4 F 08/11/22 04:00 Pulse 67 08/11/22 04:00 Resp 19 08/11/22 04:00 BP 92/51 08/11/22 04:00 Pulse Ox 95 08/11/22 04:00 FiO2 Intake & Output 08/10/22 08/11/22 08/11/22 18:59 06:59 18:59 Intake Total 238 Output Total 750 400 Balance -512 -400 Weight 115.666 kg 107.5 kg Intake: Oral 238 Output: Urine 500 400 Post Void Residual 250 Other: Voiding Method Urinal Urinal - Labs CBC & Chem 7: 08/11/22 08:15 08/11/22 08:15 Labs: Abnormal Lab Results - Last 24 Hours (Table) 08/10/22 08/10/22 08/11/22 Range/Units 05:28 15:10 08:15 Sodium 120 L 123 L (137-145) mmol/L Chloride 93 L (98-107) mmol/L Carbon Dioxide 21 L (22-30) mmol/L BUN 78 H (9-20) mg/dL Creatinine 2.13 H (0.66-1.25) mg/dL Glucose 133 H (74-99) mg/dL Calcium 7.8 L (8.4-10.2) mg/dL Phosphorus 5.6 H (2.5-4.5) mg/dL Magnesium 2.4 H (1.6-2.3) mg/dL Total Protein 4.3 L (6.3-8.2) g/dL Albumin 2.3 L (3.5-5.0) g/dL Procalcitonin 1.52 H (0.02-0.09) ng/mL Microbiology - Last 24 Hours (Table) 08/09/22 23:30 Blood Culture - Preliminary Blood No Growth after 24 hours 08/09/22 23:30 Blood Culture - Preliminary Blood No Growth after 24 hours
[2022-08-11] MEDS: ONDANSETRON 4 MG/2 ML VIAL IVP SCH ×2 (16:59→23:50)
[2022-08-11] MEDS: ASPIRIN 81 MG PO SCH (21:30)
--- NOTE | 2022-08-11 22:31 | P.GSCN ---
History of Present Illness Consult date: 08/11/22 History of present illness: REASON FOR CONSULTATION: Abnormal computed tomography scan for free air HISTORY OF PRESENT ILLNESS: The patient is a 76 year old male who has most of his care from [facility] was sent to [facility] due to hyponatremia. He has personal history of lymphoma. He was recently discharged from [facility] in the last 10 days for pleural effusion and recurrent thoracocentesis. Per discussion with consulting oncologist, CT of the abdomen and pelvis obtained for staging of lymphoma. Incidental finding of free air was identified. As a result, general surgery is consulted. Patient denies moderate abdominal pain. His main concern includes nausea. His family is at bedside. PAST MEDICAL HISTORY: See list and reviewed PAST SURGICAL HISTORY: See list and reviewed MEDICATIONS: See list and reviewed ALLERGIES: See list and reviewed SOCIAL HISTORY: See list and reviewed FAMILY HISTORY: See list and reviewed REVIEW OF ORGAN SYSTEMS: CONSTITUTIONAL: No fevers or chills. No recent weight loss. Morbid obesity, BMI 35.0. EYES: Denies any trouble with vision. No glasses. HEENT: No difficulties with hearing. No nosebleeds. No difficulty swallowing. RESPIRATORY: Has dyspnea on exertion. Has recurrent pleural effusions. CARDIOVASCULAR: Has hypertensive heart disease. Has atrial fibrillation. GASTROINTESTINAL: Denies fatty food intolerance. Denies change in bowel habits and gas bloat. GENITOURINARY: Denies any blood in urine or increased urinary frequency. Has persistent hyponatremia. NEUROLOGICAL: Denies any numbness or tingling along the distal extremities. No seizure disorders or headaches. MUSCULOSKELETAL: Denies any back pain, stiffness or joint arthritis. SKIN: No current skin cancer. No rash. PSYCHIATRIC: Denies current depression or suicidal thoughts. ENDOCRINE: Has hypothyroidism. Denies any blood sugar glucose intolerance. HEME/LYMPHATIC: As lymphoma. ALLERGY/IMMUNOLOGY: No immunoglobulin therapy. No immune deficiencies. BREAST: Denies current breast lumps, pain or nipple discharge. PHYSICAL EXAM: VITALS: Reviewed CONSTITUTIONAL: Well developed and in no acute distress. EYES: Conjuctivae without sclera icterus. Extraocular movements grossly intact. HEAD, EARS, NOSE, THROAT: Moist buccal mucosa. Head is atraumatic, normocephalic. Hears conversational speech. No nasal drainage. NECK: Supple. No JV distention. No thyroidomegaly. RESPIRATORY: Non-labored respirations and equal bilateral excursions. No gross wheezes. CARDIOVASCULAR: Palpable 2+ radial pulses. ABDOMEN: Obese, no peritonitis. Minimal tenderness. LYMPH: No neck lymphadenopathy. MUSCULOSKELETAL: No clubbing cyanosis or edema. SKIN: Warm and well perfused with good skin turgor. NEUROLOGIC: Cranial nerves II through XII grossly intact. No focal or lateraliz ing signs. PSYCH: Appropriate affect. Alert and oriented to person, place and time. Displays appropriate insight. CLINCAL LABS: Reviewed. WBC low 2.1, leukopenia. Sodium low 122, hyponatremia. IMAGING: Independently reviewed. Chest x-ray 08/10/2022 demonstrates no free air. Large pleural effusion, right. This is my independent interpretation. CT of the abdomen and pelvis and the previously reviewed demonstrates some free air along the anterior abdominal wall. No free air of the pelvis. No fluid collection. This is my independent interpretation. RADIOLOGY: Report reviewed. Chest x-ray demonstrates right pleural effusion. CT of the abdomen pelvis demonstrated sending gallbladder with gallstones/sludge. Moderate amount of intra-abdominal ascites. ASSESSMENT: 1. Pneumoperitoneum 2. Recurrent right pleural effusion 3. Lymphoma 4. Nausea PLAN: 1. I had an extended discussion with oncologist Wilder Roblero regarding discussion with [facility] oncologist. Due to patient's multiple medical comorbidities, persistent hyponatremia, surgical intervention is ill advised. 2. Clinically, patient does not have peritonitis and exam. His main concern includes nausea. Family bedside and patient agrees with conservative management. 3. May have ice chips and popsicles including medications. No diet at this time. 4. Recommend antibiotics in the interim. 5. Follow-up abdominal x-ray in 24 hours 6. Recommend antibiotics ADVANCE DIRECTIVE: Thank you for this kind consultation. Past Medical History Past Medical History: Atrial Fibrillation, Cancer, Hypertension, Thyroid Disorder Additional Past Medical History / Comment(s): hyponatremia History of Any Multi-Drug Resistant Organisms: None Reported Past Surgical History: Cardiac Ablation, Hernia Repair Additional Past Surgical History / Comment(s): Port placed in left upper chest, last thoracentesis 08/08/22. Past Anesthesia/Blood Transfusion Reactions: No Reported Reaction Past Psychological History: No Psychological Hx Reported Smoking Status: Never smoker Past Alcohol Use History: None Reported Past Drug Use History: None Reported - Past Family History Mother Family Medical History: No Reported History Additional Family Medical History / Comment(s): Parkinsons Father Additional Family Medical History / Comment(s): Heart conditions Medications and Allergies Home Medications Medication Instructions Recorded Confirmed Type Aspirin EC [Ecotrin Low Dose] 81 mg PO HS 08/10/22 08/10/22 History Lenalidomide [Revlimid] 15 mg PO HS 08/10/22 08/10/22 History Levothyroxine Sodium [Synthroid] 88 mcg PO DAILY 08/10/22 08/10/22 History Metoprolol Succinate (ER) [Toprol 25 mg PO DAILY 08/10/22 08/10/22 History Xl] Multivit/Iron Sulf/Folic Acid 1 tab PO DAILY 08/10/22 08/10/22 History [Multivitamin with Iron] Sodium Chloride Tab 1 gm PO TID 08/10/22 08/10/22 History Terazosin HCl 10 mg PO DAILY 08/10/22 08/10/22 History Allergies Allergy/AdvReac Type Severity Reaction Status Date / Time No Known Allergies Allergy Verified 08/10/22 12:56 Surgical - Exam Vital Signs Temp Pulse Resp BP Pulse Ox 97.3 F L 82 18 100/63 9 L 08/09/22 17:55 08/09/22 17:55 08/09/22 17:55 08/09/22 17:55 08/09/22 17:55 Results - Labs 08/11/22 08:15 08/11/22 18:00 Abnormal Lab Results - Last 24 Hours (Table) 08/10/22 08/11/22 08/11/22 Range/Units 05:28 08:15 08:15 WBC 2.1 L (3.8-10.6) k/uL RBC 3.86 L (4.30-5.90) m/uL Hgb 12.2 L (13.0-17.5) gm/dL Hct 35.8 L (39.0-53.0) % Plt Count 64 L (150-450) k/uL Lymphocytes # 0.1 L (1.0-4.8) k/uL Sodium 123 L (137-145) mmol/L Chloride 93 L (98-107) mmol/L Carbon Dioxide 21 L (22-30) mmol/L BUN 78 H (9-20) mg/dL Creatinine 2.13 H (0.66-1.25) mg/dL Glucose 133 H (74-99) mg/dL Calcium 7.8 L (8.4-10.2) mg/dL Phosphorus 5.6 H (2.5-4.5) mg/dL Magnesium 2.4 H (1.6-2.3) mg/dL Total Protein 4.3 L (6.3-8.2) g/dL Albumin 2.3 L (3.5-5.0) g/dL Procalcitonin 1.52 H (0.02-0.09) ng/mL 08/11/22 Range/Units 18:00 WBC (3.8-10.6) k/uL RBC (4.30-5.90) m/uL Hgb (13.0-17.5) gm/dL Hct (39.0-53.0) % Plt Count (150-450) k/uL Lymphocytes # (1.0-4.8) k/uL Sodium 122 L (137-145) mmol/L Chloride (98-107) mmol/L Carbon Dioxide (22-30) mmol/L BUN (9-20) mg/dL Creatinine (0.66-1.25) mg/dL Glucose (74-99) mg/dL Calcium (8.4-10.2) mg/dL Phosphorus (2.5-4.5) mg/dL Magnesium (1.6-2.3) mg/dL Total Protein (6.3-8.2) g/dL Albumin (3.5-5.0) g/dL Procalcitonin (0.02-0.09) ng/mL Microbiology - Last 24 Hours (Table) 08/10/22 15:57 Nasal Screen MRSA/MSSA - Preliminary Nasal Swab 08/09/22 23:30 Blood Culture - Preliminary Blood No Growth after 24 hours 08/09/22 23:30 Blood Culture - Preliminary Blood No Growth after 24 hours Diabetes panel 08/11/22 08/11/22 Range/Units 08:15 18:00 Sodium 123 L 122 L (137-145) mmol/L Potassium 5.0 (3.5-5.1) mmol/L Chloride 93 L (98-107) mmol/L Carbon Dioxide 21 L (22-30) mmol/L BUN 78 H (9-20) mg/dL Creatinine 2.13 H (0.66-1.25) mg/dL Glucose 133 H (74-99) mg/dL Calcium 7.8 L (8.4-10.2) mg/dL AST 28 (17-59) U/L ALT 21 (4-49) U/L Alkaline Phosphatase 105 (38-126) U/L Total Protein 4.3 L (6.3-8.2) g/dL Albumin 2.3 L (3.5-5.0) g/dL Calcium panel 08/11/22 Range/Units 08:15 Calcium 7.8 L (8.4-10.2) mg/dL Phosphorus 5.6 H (2.5-4.5) mg/dL Albumin 2.3 L (3.5-5.0) g/dL Pituitary panel 08/11/22 08/11/22 Range/Units 08:15 18:00 Sodium 123 L 122 L (137-145) mmol/L Potassium 5.0 (3.5-5.1) mmol/L Chloride 93 L (98-107) mmol/L Carbon Dioxide 21 L (22-30) mmol/L BUN 78 H (9-20) mg/dL Creatinine 2.13 H (0.66-1.25) mg/dL Glucose 133 H (74-99) mg/dL Calcium 7.8 L (8.4-10.2) mg/dL Adrenal panel 08/11/22 08/11/22 Range/Units 08:15 18:00 Sodium 123 L 122 L (137-145) mmol/L Potassium 5.0 (3.5-5.1) mmol/L Chloride 93 L (98-107) mmol/L Carbon Dioxide 21 L (22-30) mmol/L BUN 78 H (9-20) mg/dL Creatinine 2.13 H (0.66-1.25) mg/dL Glucose 133 H (74-99) mg/dL Calcium 7.8 L (8.4-10.2) mg/dL Total Bilirubin 1.1 (0.2-1.3) mg/dL AST 28 (17-59) U/L ALT 21 (4-49) U/L Alkaline Phosphatase 105 (38-126) U/L Total Protein 4.3 L (6.3-8.2) g/dL Albumin 2.3 L (3.5-5.0) g/dL
[2022-08-12] MEDS: PROCHLORPERAZINE INJ 10 MG/2 ML VIAL IVP PRN ×3 (03:17→21:10)
[2022-08-12] MEDS: MIDODRINE 5 MG TAB PO SCH ×3 (06:23→17:57)
[2022-08-12] MEDS: ONDANSETRON 4 MG/2 ML VIAL IVP SCH ×3 (06:23→17:57)
[2022-08-12] MEDS: PANTOPRAZOLE 40 MG/10 ML VIAL IVP SCH ×2 (09:50→20:15)
[2022-08-12] MEDS: LEVOTHYROXINE 88 MCG TAB PO SCH (09:50)
[2022-08-12] MEDS: PIPERACILLIN-TAZOBACTAM 3.375 GM in SODIUM CHLORIDE 0.9% 100 ML IVPB SCH ×2 (09:51→17:24)
[2022-08-12 10:13] LABS: Basophils % (A) 0 %; Eosinophils % (A) 1 %; HCT 34.8 % (39.0-53.0); HGB 11.9 gm/dL (13.0-17.5); Lymphocytes # (A) 0.2 k/uL (1.0-4.8); Lymphocytes % (A) 14 %; MCH 31.3 pg (25.0-35.0); MCHC 34.1 g/dL (31.0-37.0); MCV 91.9 fL (80.0-100.0); Mean Platelet Volume 9.3; Monocytes # (A) 0.1 k/uL (0-1.0); Monocytes % (A) 6 %; Neutrophils # (A) 0.8 k/uL (1.3-7.7); Neutrophils % (A) 76 %; RBC 3.79 m/uL (4.30-5.90); RDW 15.9 % (11.5-15.5)
[2022-08-12 10:25] LABS: Albumin 2.2 g/dL (3.5-5.0); Calcium 7.8 mg/dL (8.4-10.2); Potassium 5.4 mmol/L (3.5-5.1); Total Bilirubin 1.1 mg/dL (0.2-1.3); Total Protein 4.3 g/dL (6.3-8.2)
[2022-08-12 10:38] LABS: Platelet Count 61 k/uL (150-450); WBC 1.1 k/uL (3.8-10.6)
[2022-08-12] MEDS: FUROSEMIDE 10 MG/ML 4 ML VIAL IV SCH ×2 (10:46→15:18)
[2022-08-12] MEDS: METOPROLOL SUCCINATE (ER) 25 MG TAB.ER.24H PO SCH (10:47)
[2022-08-12] MEDS ORDERED: TOLVAPTAN 15 MG TABLET PO ONE (11:06)
[2022-08-12] MEDS ORDERED: SODIUM ZIRCONIUM CYCLOSILICATE 10 GM PACKET PO ONE (11:08)
--- NOTE | 2022-08-12 11:09 | P.PN ---
Subjective Patient is seen in follow-up for hyponatremia and acute kidney injury. Sodium level 123 today. Renal function worse from diuresis with creatinine 2.64 today. Has been voiding. Blood pressure is on the lower side. Family present at bedside. Vital signs are stable. General: No acute distress. HEENT: Head exam is unremarkable. LUNGS: No audible rhonchi or wheezes. HEART: Rate and Rhythm are regular. ABDOMEN: Obese. Nontender. EXTREMITITES: 1+ edema. Objective - Vital Signs Vital signs: Vital Signs Temp 98.4 F 08/12/22 08:00 Pulse 91 08/12/22 08:00 Resp 20 08/12/22 08:00 BP 80/57 08/12/22 08:00 Pulse Ox 95 08/12/22 08:00 FiO2 Intake & Output 08/11/22 08/12/22 08/12/22 18:59 06:59 18:59 Output Total 1000 400 Balance -1000 -400 Output: Urine 1000 400 Other: Voiding Method Urinal Urinal # Voids 3 - Labs CBC & Chem 7: 08/12/22 09:50 08/12/22 09:50 Labs: Abnormal Lab Results - Last 24 Hours (Table) 08/11/22 08/12/22 08/12/22 Range/Units 18:00 09:50 09:50 WBC 1.1 L* (3.8-10.6) k/uL RBC 3.79 L (4.30-5.90) m/uL Hgb 11.9 L (13.0-17.5) gm/dL Hct 34.8 L (39.0-53.0) % RDW 15.9 H (11.5-15.5) % Plt Count 61 L (150-450) k/uL Sodium 122 L 123 L (137-145) mmol/L Potassium 5.4 H (3.5-5.1) mmol/L Chloride 93 L (98-107) mmol/L Carbon Dioxide 19 L (22-30) mmol/L BUN 87 H (9-20) mg/dL Creatinine 2.64 H (0.66-1.25) mg/dL Glucose 110 H (74-99) mg/dL Calcium 7.8 L (8.4-10.2) mg/dL Total Protein 4.3 L (6.3-8.2) g/dL Albumin 2.2 L (3.5-5.0) g/dL Microbiology - Last 24 Hours (Table) 08/10/22 15:57 Nasal Screen MRSA/MSSA - Final Nasal Swab 08/09/22 23:30 Blood Culture - Preliminary Blood No Growth after 48 hours 08/09/22 23:30 Blood Culture - Preliminary Blood No Growth after 48 hours Assessment and Plan Plan: Assessment: 1. Acute kidney injury secondary to ATN secondary to hypotension. Rule out urinary retention. No hydronephrosis noted on CAT scan. Renal function for some diuresis. Creatinine 2.64 today. 2. Hypervolemic hyponatremia. Sodium level stable at 123 today. 3. Mantle cell lymphoma being followed by oncology. 4. Volume overload. 5. Metabolic acidosis secondary to acute kidney injury. 6. Pancytopenia related to infection and chemotherapy. 7. Pneumonia on antibiotics. 8. Rule out CKD. Patient's creatinine in 2017 was 0.7 and was 2.6 this admission. No other records available in between. It is likely that patient has developed underlying chronic kidney disease from prior AKIs/medications. Plan: Maintain midodrine. Hold Lasix if systolic blood pressure less than 100. Repeat Samsca 15 mg once today. Check bladder scan to make sure no urinary retention. Cortisol level not low. Add oral bicarb. Lokelma 10 g once today. I did discuss with family and patient to potentially for renal replacement therapy if no improvement in renal function and his volume status. They wish to hold off at this time. Prognosis guarded.
--- NOTE | 2022-08-12 11:28 | P.PN ---
Subjective Progress Note Date: 08/12/22 Principal diagnosis: Hyponatremia, weakness. 76-year-old male with a history of mantle cell lymphoma, who typically is followed at the [facility]. 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 Recently, they've been having issues with low s odiums, as well as recurrent pleural effusions, requiring thoracentesis. The patient states that he's had at least 6 thoracentesis in the recent past. He came into the hospital because he was directed by his doctors there to be evaluated. The patient is not a particularly good historian and is seen in the emergency department, room 15. He is on room air. Is not receiving any IV fluids. His initial sodium was 119. His chest x-ray shows fluid overload pulmonary edema with small effusions, and a possible right lower lobe infiltrate. The patient also has a history of atrial fibrillation, and hypertension. He's had a cardiac ablation in the past. He is a lifelong nonsmoker. White count 2.8, hemoglobin 11.5, hematocrit 33.5, and a platelet count of 69,000. Sodium 120 potassium 4.9, chlorides 93, CO2 18, anion gap 9, BUN 78, creatinine 2.32. Urine was negative. Troponin was normal. The patient is seen today 08/11/2022 in follow-up on the selective care unit. He is currently resting comfortably in bed. Awake and alert in no acute distress. Maintaining O2 saturations in the 90s on room air. He's having some ongoing issues with nausea. His normal saline at 10 MLS per hour. Chest x-ray continues to show small to moderate right-sided pleural effusion was associated airspace opacities. Abdominal ultrasound revealed fluid seen in all 4 quadrants mostly in the right. Small ascites. Computed tomography scan of the abdomen and pelvis today reveals new free air present in the mid to upper abdomen. New adenopathy throughout the abdomen and pelvis involving peritoneum and retroperitoneum likely reflecting active lymphoma recurrence. New small right greater than left pleural effusions. New small to moderate amount of intraperitoneal ascites greatest in the right abdomen. Mild to moderate diffuse soft tissue anasarca. Findings consistent with fluid overload state. This is compared to a PET scan from 12/07/2021. Culture reveals no growth to date. White count 2.1. Hemoglobin 12.2. Platelets 64,000. Sodium improved to 123. Potassium 5.0. Bicarb 21. He wasn't 78. Creatinine 2.13. Glucose 133. Urine legionella antigen negative. Pro-calcitonin 1.52. He is currently on antibiotics in the form of vancomycin and Zosyn. IV Lasix 40 mg every 8 hours. Received Samsca yesterday. Currently in a -900 ML balance. Progress note dated 08/12/2022. This is a 76-year-old male seen in room 382. He was seen in consultation, a couple days ago, in the emergency department. The patient has most of his care at the [facility]. The patient came in with a diagnosis of mantle cell lymphoma, and his had multiple thoracentesis performed, for pleural effusion. In addition, he was very weak, and his sodium was 119. For this reason, he was told to come in to be evaluated. He's currently on room air. He is receiving vancomycin and Zosyn. His sodium today is 122. He seems to have quite a bit of abdominal ascites, and I will have interventional radiology consider doing a paracentesis abdominis, for diagnostic and therapeutic reasons. He should have the fluid analyzed for cytology, microbiology, and chemistry, specifically glucose, LDH, and protein. White count 1.1, hemoglobin 11.9, hematocrit 34.8, and platelet count 61,000. Sodium 123, potassium 5.4, chlorides 93, CO2 19, anion gap 11, BUN 87, creatinine 2.64. CT of the abdomen shows free air, adenopathy throughout the abdomen and pelvis consistent with active lymphoma recurrence, bilateral effusions, and possible significant intra- abdominal ascites. Objective - Vital Signs Vital signs: Vital Signs Temp 98.4 F 08/12/22 08:00 Pulse 91 08/12/22 08:00 Resp 20 08/12/22 08:00 BP 80/57 08/12/22 08:00 Pulse Ox 95 08/12/22 08:00 FiO2 Intake & Output 08/11/22 08/12/22 08/12/22 18:59 06:59 18:59 Output Total 1000 400 Balance -1000 -400 Output: Urine 1000 400 Other: Voiding Method Urinal Urinal # Voids 3 - Exam No acute distress, oriented 3. Currently on room air. Mild conversational dyspnea. HEENT examination is grossly unremarkable. Neck supple. Full range of motion. No adenopathy thyromegaly or neck vein distention. Cardiovascular examination reveals regular rhythm rate. S1-S2 normal. No S3 or S4. No discernible murmur noted. Heart sounds are distant. Heart rate 91 bpm. Lungs reveal mild bilateral rhonchi. No wheezes. No crackles. Breath sounds equal bilaterally. Room air saturation 95%. Abdomen distended, and somewhat soft. No tenderness on palpation. Bowel sounds are not noted. Extremities are intact. No cyanosis or clubbing. Mild edema is noted. Skin is without rash or lesion. Neurologic examination is brief but nonfocal. - Labs CBC & Chem 7: 08/12/22 09:50 08/12/22 09:50 Labs: Abnormal Lab Results - Last 24 Hours (Table) 08/11/22 08/12/22 08/12/22 Range/Units 18:00 09:50 09:50 WBC 1.1 L* (3.8-10.6) k/uL RBC 3.79 L (4.30-5.90) m/uL Hgb 11.9 L (13.0-17.5) gm/dL Hct 34.8 L (39.0-53.0) % RDW 15.9 H (11.5-15.5) % Plt Count 61 L (150-450) k/uL Sodium 122 L 123 L (137-145) mmol/L Potassium 5.4 H (3.5-5.1) mmol/L Chloride 93 L (98-107) mmol/L Carbon Dioxide 19 L (22-30) mmol/L BUN 87 H (9-20) mg/dL Creatinine 2.64 H (0.66-1.25) mg/dL Glucose 110 H (74-99) mg/dL Calcium 7.8 L (8.4-10.2) mg/dL Total Protein 4.3 L (6.3-8.2) g/dL Albumin 2.2 L (3.5-5.0) g/dL Microbiology - Last 24 Hours (Table) 08/10/22 15:57 Nasal Screen MRSA/MSSA - Final Nasal Swab 08/09/22 23:30 Blood Culture - Preliminary Blood No Growth after 48 hours 08/09/22 23:30 Blood Culture - Preliminary Blood No Growth after 48 hours Assessment and Plan Assessment: Weakness, with hyponatremia, chronic. History of recurrent pleural effusion, status post thoracentesis 6. History of mantle cell lymphoma, followed at [facility]. Abdominal ascites. Possible right lower lobe pneumonia. History of atrial fibrillation, with prior ablation. History of hypertension. Lifelong nonsmoker. Plan: Plan dated 08/10/2022. The patient is seen in the emergency department, bed 15. The patient's currently on room air. Saturations are 97%. Labs, x-rays, and medications are reviewed. The patient does not need thoracentesis at this time. His repeat sodium is up to 120. Additional recommendations and suggestions are forthcomin g. Some consideration might be given to transferring the patient back to [facility], where he receives most of his care. Prognosis is guarded. Plan dated 08/12/2022. We will have interventional radiology evaluate him for possible therapeutic and diagnostic paracentesis. The patient's sodium is 123. He's been seen by nephrology. We will continue to follow the patient make recommendations along the way. Ultimately, it might be appropriate to consider transferring this patient to [facility], which is where he gets most of his care. We will continue to follow the patient make recommendations along the way. His respiratory status seems reasonably stable. Time with Patient: Less than 30
--- NOTE | 2022-08-12 12:04 | US ---
Ultrasound-guided paracentesis. DATE OF EXAM: 08/12/2022 CLINICAL HISTORY: Ascites The procedure was discussed with the patient. The risks, complications, benefits, and alternatives we re discussed and any questions were answered. Informed consent was obtained. The patient was placed s upine on the ultrasound table and prepped and draped in the usual sterile fashion. All elements of maximal barrier technique were utilized. Under ultrasound guidance, access into the right lower quadrant was obtained, via the paracentesis catheter system and direct ultrasound guidanc e. After approximately 1200 mL of clear, serous fluid was removed, the patient's blood pressure was note d to decrease from a systolic blood pressure of 91-92 to 83. Given this change, the procedure was ter minated prematurely. The patient was stable throughout the procedure and remained stable upon discharge from Department of Radiology. IMPRESSION: Successful, uncomplicated ultrasound-guided paracentesis with a total of 1200 mL of clear, serous flu id removed.
[2022-08-12] MEDS: SODIUM BICARBONATE TAB 650 MG TAB PO SCH ×3 (12:24→21:10)
--- NOTE | 2022-08-12 12:54 | P.PN ---
Subjective Progress Note Date: 08/12/22 CHIEF COMPLAINT: Abnormal computed tomography scan for free air HISTORY OF PRESENT ILLNESS: The patient is a 76 year old male who has most of his care from [facility] was sent to [facility] due to hyponatremia. He has personal history of lymphoma. He was recently discharged from [facility] in the last 10 days for pleural effusion and recurrent thoracocentesis. Per discussion with consulting oncologist, CT of the abdomen and pelvis obtained for staging of lymphoma. Incidental finding of free air was identified. Patient reports increase in abdominal distention. He reports his pain is about the same. Denies any vomiting. He has been nauseous. Patient had paracentesis completed today with 1.2 L of clear serous fluid removed. This is his first paracentesis. Patient examined prior to the paracentesis. Afebrile. WBC down to 1.1 hgb 11.9 platelets are 61 sodium 123 potassium 5.4 creatinine 2.64 PHYSICAL EXAM: VITAL SIGNS: Reviewed GENERAL: Well-developed in no acute distress. HEENT: No sclera icterus. Extraocular movements grossly intact. Moist buccal mucosa. Head is atraumatic, normocephalic. Hears conversational speech. No nasal draina ge. NECK: Supple without lymphadenopathy. CHEST: Non-labored respirations and equal bilateral excursions. CARDIOVASCULAR: Palpable 2+ radial pulses. ABDOMEN: Distended. Mid abdominal tenderness. No signs of peritonitis MUSCULOSKELETAL: No clubbing or cyanosis. NEUROLOGIC: No focal or lateralizing signs. Cranial nerves II through XII grossly intact. PSYCH: Appropriate affect. Alert and oriented to person, place and time. SKIN: Well perfused. Good skin turgor. ASSESSMENT: 1. Pneumoperitoneum 2. Recurrent right pleural effusion 3. Lymphoma 4. Nausea 5. Abdominal ascites status post paracentesis 7. Hyponatremia PLAN: -Due to patient's multiple medical comorbidities, persistent hyponatremia, surgical intervention is ill advised. -No plans for surgical intervention -Continue supportive care Physician Reading Tutor note has been reviewed by physician. Signing provider agrees with the documented findings, assessment, and plan of care. CHIEF COMPLAINT: Abnormal computed tomography scan for free air HISTORY OF PRESENT ILLNESS: The patient is a 76 year old male with lymphoma who had pneumoperitoneum on computed tomography scan. Denies moderate abdominal pain. His nausea has improved to Compazine and Zofran. He had paracentesis of 1200 mL serous removed. REVIEW OF ORGAN SYSTEMS: CONSTITUTIONAL: No fevers or chills. No recent weight loss. Morbid obesity, BMI 35.0. RESPIRATORY: Has dyspnea on exertion. Has recurrent pleural effusions. CARDIOVASCULAR: Has hypertensive heart disease. Has atrial fibrillation. HEME/LYMPHATIC: Has lymphoma. PHYSICAL EXAM: VITALS: Reviewed CONSTITUTIONAL: Well developed and in no acute distress. EYES: Conjuctivae without sclera icterus. Extraocular movements grossly intact. HEAD, EARS, NOSE, THROAT: Moist buccal mucosa. Head is atraumatic, normocephalic. Hears conversational speech. No nasal drainage. RESPIRATORY: Non-labored respirations and equal bilateral excursions. No gross wheezes. CARDIOVASCULAR: Palpable 2+ radial pulses. ABDOMEN: Obese, no peritonitis. Minimal tenderness. MUSCULOSKELETAL: No clubbing cyanosis or edema. SKIN: Warm and well perfused with good skin turgor. NEUROLOGIC: Cranial nerves II through XII grossly intact. No focal or lateralizing signs. PSYCH: Appropriate affect. Alert and oriented to person, place and time. Displays appropriate insight. : Has a Nolasco catheter CLINCAL LABS: Reviewed. WBC low 1,2 leukopenia. RADIOLOGY: Report reviewed paracentesis 1200 mL removed ASSESSMENT: 1. Pneumoperitoneum 2. Recurrent right pleural effusion 3. Lymphoma 4. Nausea 5. Ascites PLAN: 1. Recommend scopolamine patch for nausea 2. Monitor free air with abdominal x-ray 3. Start clear liquid diet after stable abdominal x-ray. 4. Recommend antibiotics Objective - Vital Signs Vital signs: Vital Signs Temp 98.4 F 08/12/22 08:00 Pulse 91 08/12/22 08:00 Resp 20 08/12/22 08:00 BP 80/57 08/12/22 08:00 Pulse Ox 95 08/12/22 08:00 FiO2 Intake & Output 08/11/22 08/12/22 08/12/22 18:59 06:59 18:59 Output Total 1000 400 Balance -1000 -400 Output: Urine 1000 400 Other: Voiding Method Urinal Urinal # Voids 3 - Labs CBC & Chem 7: 08/12/22 09:50 08/12/22 09:50 Labs: Abnormal Lab Results - Last 24 Hours (Table) 08/11/22 08/12/22 08/12/22 Range/Units 18:00 09:50 09:50 WBC 1.1 L* (3.8-10.6) k/uL RBC 3.79 L (4.30-5.90) m/uL Hgb 11.9 L (13.0-17.5) gm/dL Hct 34.8 L (39.0-53.0) % RDW 15.9 H (11.5-15.5) % Plt Count 61 L (150-450) k/uL Sodium 122 L 123 L (137-145) mmol/L Potassium 5.4 H (3.5-5.1) mmol/L Chloride 93 L (98-107) mmol/L Carbon Dioxide 19 L (22-30) mmol/L BUN 87 H (9-20) mg/dL Creatinine 2.64 H (0.66-1.25) mg/dL Glucose 110 H (74-99) mg/dL Calcium 7.8 L (8.4-10.2) mg/dL Total Protein 4.3 L (6.3-8.2) g/dL Albumin 2.2 L (3.5-5.0) g/dL Microbiology - Last 24 Hours (Table) 08/10/22 15:57 Nasal Screen MRSA/MSSA - Final Nasal Swab 08/09/22 23:30 Blood Culture - Preliminary Blood No Growth after 48 hours 08/09/22 23:30 Blood Culture - Preliminary Blood No Growth after 48 hours
[2022-08-12 13:26] LABS: Toxic Granulation Present
--- NOTE | 2022-08-12 13:29 | P.PN ---
Subjective Progress Note Date: 08/12/22 Principal diagnosis: weakness, hx mantle cell lymphoma At today's visit patient is resting comfortably in bed. Reports feeling improved since admission, still feeling weak. Patient is currently being treated with IV antibiotics for pneumonia. Reporting shortness of breath and abdominal distention. Order placed for paracentesis. He is also experiencing urinary retention, Nolasco catheter ordered. Objective - Vital Signs Vital signs: Vital Signs Temp 98 F 08/12/22 11:10 Pulse 92 08/12/22 11:30 Resp 24 08/12/22 11:30 BP 81/47 08/12/22 11:30 Pulse Ox 96 08/12/22 11:30 FiO2 Intake & Output 08/11/22 08/12/22 08/12/22 18:59 06:59 18:59 Output Total 1000 400 Balance -1000 -400 Output: Urine 1000 400 Other: Voiding Method Urinal Urinal # Voids 3 - Constitutional General appearance: Present: average body habitus, no acute distress - EENT Eyes: Present: anicteric sclerae, EOMI ENT: Present: hearing grossly normal - Respiratory Details: Breathing is even and unlabored - Cardiovascular Details: Skin is warm and dry - Gastrointestinal General gastrointestinal: Present: distended - Integumentary Integumentary: Present: normal - Musculoskeletal Musculoskeletal: Present: generalized weakness - Psychiatric Psychiatric: Present: A&O x's 3, appropriate affect, intact judgment & insight - Labs CBC & Chem 7: 08/12/22 09:50 08/12/22 09:50 Labs: Abnormal Lab Results - Last 24 Hours (Table) 08/11/22 08/12/22 08/12/22 Range/Units 18:00 09:50 09:50 WBC 1.1 L* (3.8-10.6) k/uL RBC 3.79 L (4.30-5.90) m/uL Hgb 11.9 L (13.0-17.5) gm/dL Hct 34.8 L (39.0-53.0) % RDW 15.9 H (11.5-15.5) % Plt Count 61 L (150-450) k/uL Sodium 122 L 123 L (137-145) mmol/L Potassium 5.4 H (3.5-5.1) mmol/L Chloride 93 L (98-107) mmol/L Carbon Dioxide 19 L (22-30) mmol/L BUN 87 H (9-20) mg/dL Creatinine 2.64 H (0.66-1.25) mg/dL Glucose 110 H (74-99) mg/dL Calcium 7.8 L (8.4-10.2) mg/dL Total Protein 4.3 L (6.3-8.2) g/dL Albumin 2.2 L (3.5-5.0) g/dL Microbiology - Last 24 Hours (Table) 08/10/22 15:57 Nasal Screen MRSA/MSSA - Final Nasal Swab 08/09/22 23:30 Blood Culture - Preliminary Blood No Growth after 48 hours 08/09/22 23:30 Blood Culture - Preliminary Blood No Growth after 48 hours Assessment and Plan (1) Hyponatremia Current Visit: Yes Status: Acute Priority: High Code(s): E87.1 - HYPO- OSMOLALITY AND HYPONATREMIA SNOMED Code(s): 47197182 (2) Mantle cell lymphoma Current Visit: Yes Status: Acute Priority: High Code(s): C83.10 - MANTLE CELL LYMPHOMA, UNSPECIFIED SITE SNOMED Code(s): 663387988 (3) Pancytopenia Current Visit: Yes Status: Acute Priority: High Code(s): D61.818 - OTHER PANCYTOPENIA SNOMED Code(s): 852223454 (4) Right lower lobe pneumonia Current Visit: Yes Status: Acute Priority: High Code(s): J18.9 - PNEUMONIA, UNSPECIFIED ORGANISM SNOMED Code(s): 138933389 (5) Ascites Current Visit: Yes Status: Acute Priority: High Code(s): R18.8 - OTHER ASCITES SNOMED Code(s): 075056560 Plan: Refractory mantle cell lymphoma -Noted to have refractory disease with disease progression following ibrutinib and bendamustine/rituximab -He was started on venetoclax, but has had multiple admissions at [facility] over the past 6 weeks due to progressive weakness and hyponatremia -Unclear if hyponatremia was secondary to venetoclax -He was transitioned to Revlimid, which she has been taking for approximately 1 week prior to admission -PET/CT at [facility] on 08/08/2022 noted interval disease progression from PET on 04/17/2022 along with right lower lobe consolidation concerning for infection -Given the concern for pneumonia along with recurrent hyponatremia, I did recommend holding Revlimid at this time due to concern for potential exa cerbation of infection -CT abdomen/pelvis without contrast originally ordered to assess for obstructive uropathy given retroperitoneal lymphadenopathy noted intra-abdominal free air -Clinically, there is no evidence of peritonitis, rebound, or guarding -Case was discussed with multiple physicians, including Dr. Reddy, Dr. Altamirano, and primary pyridine operator at [facility] Dr. Torres -Based on my discussion with Dr. Torres, she was concerned that his recurrent admissions with JB and hyponatremia could be due to disease progression from his mantle cell lymphoma and not from venetoclax -Given the same presentation off of venetoclax, he does appear that his current presentation with BJ and hyponatremia could be secondary to progression of his mantle cell lymphoma -Mantle cell lymphoma can affect the bowel. If the imaging findings do represent bowel perforation, this could be consistent with progression of the mantle cell lymphoma -Based on my discussion with Dr. Torres, surgery would not be of benefit if this was related to mantle cell lymphoma -This was discussed with Dr. Altamirano -If he does not have improvement in his clinical status overall, Dr. Torres was not opposed to the idea of comfort care or hospice -This was discussed with Mr. Arevalo's family. They seem to be in agreement with this line of thought Hyponatremia, BJ -Improvement in sodium -Sodium at 123 compared to sodium 119, creatinine 2.6 today -Continue management with nephrology, appreciate their assistance Pneumonia, likely healthcare acquired -Has had admissions at [facility] over the past 6 weeks -Initially started on on ceftriaxone and azithromycin, but was broadened to vancomycin and Zosyn given the risk for MRSA and drug-resistant organisms Pancytopenia -Likely secondary to Revlimid along with superimposed pneumonia -Holding Revlimid as above -Immunoglobins ordered, will consider IVIG if deficiencies present -Transfuse for hemoglobin less than 7 and/or platelet count less than 10,000 or bleeding Ascites: -Paracentesis planned -Flow cytometry and cytology ordered on peritoneal fluid attests: I performed H&P and developed impression and plan of care for patient, discussed with dictator. I agree with dictated note, documented as a scribe
--- NOTE | 2022-08-12 13:46 | P.PN ---
Subjective Progress Note Date: 08/12/22 patient is a 76-year-old gentleman with past medical history significant for mantle cell lymphoma, hyponatremia who presented to the ER at the direction of his survey technician for hyponatremia. Patient normally follows at [facility] for his lymphoma. Patient has history of recurrent pleural effusions requiring thoracentesis, last thoracentesis was done 2 days ago. Patient was recently discharged from [facility] on 08/02/22.He had a PET scan completed at [facility] earlier this week in which results do show interval progression of lymphadenopathy and worsening of his lymphoma. He does report generalized weakness and a mild tremor which he attributes to his hyponatremia. noticed that the patient had swelling of lower extremities Chest x-ray done showed right basilar air space opacities could represent atelectasis versus developing pneumonia Initial lab work done showed a white count of 4.1, hemoglobin 12, platelet count 71, sodium 119, potassium 5.9, creatinine 2.60. Patient was admitted to internal medicine team for further evaluation and treatment 08/11. Patient seen and examined. Patient overnight having nausea with vomiting, also complaining of abdominal cramps. Sodium improved to 123, potassium is 5 this morning. 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 General surgery consulted 08/12. Patient seen and examined. Patient was seen by general surgery for concern of free air in the abdomin. Gen. surgery had extensive discussion with patient and patient's family as well as oncology, at this time plan is for patient to be watched closely, conservative approach is ideal, no surgical intervention in the meantime, patient will be kept nothing by mouth with popsicles. Patient blood pressures have been on the lower side, hold Lopressor for blood pressure less than 90 systolic. Discussed with patient's family reg arding his poor prognosis and overall condition, family are open to discussion about hospice after talking with hematology. paracentesis ordered REVIEW OF SYSTEMS: CONSTITUTIONAL: No fever, no malaise,. CARDIOVASCULAR: No chest pain, no palpitations, no syncope. PULMONARY: No shortness of breath, no cough, GASTROINTESTINAL: As mentioned in HPI NEUROLOGICAL: No headaches, no weakness, PHYSICAL EXAMINATION: GENERAL: The patient is alert and oriented x3, not in any acute distress. Well developed, well nourished. HEENT: Pupils are round and equally reacting to light. EOMI. No scleral icterus. No conjunctival pallor. Normocephalic, atraumatic. No pharyngeal erythema. No thyromegaly. CARDIOVASCULAR: S1 and S2 present. No murmurs, rubs, or gallops. PULMONARY: Chest is clear to auscultation, no wheezing or crackles. ABDOMEN: No tenderness, no guarding, distended normoactive bowel sounds. No palpable organomegaly. MUSCULOSKELETAL: No joint swelling or deformity. EXTREMITIES: No cyanosis, clubbing, or pedal edema. NEUROLOGICAL: Gross neurological examination did not reveal any focal deficits. SKIN: No rashes. Assessment and plan Hyponatremia, acute on chronic Intra-abdominal free air Pneumoperitoneum Hyperkalemia Acute kidney injury Pancytopenia Bacterial pneumonia Generalized weakness History of recurrent pleural effusion, status post thoracentesis 6. History of mantle cell lymphoma, followed at [facility]. Possible right lower lobe pneumonia. History of atrial fibrillation, with prior ablation. Plan; Monitor CBC Monitor CMP Strict's and O's Daily weights Continue midodrine Continue IV Lasix , hold if her pressure less than 100 Continue Zosyn and vancomycin Repeat Samsca lokelma ordered by nephrology CT abdominal and pelvis without contrast showed free air, Keep patient nothing by mouth Paracentesis ordered by pulmonary Pulmonary following Nephrology following Hematology following, discussed with patient outside plant engineer Dr. Torres, who was concerned that his recurrent admissions with BJ and hyponatremia could be due to disease progression from his mantle cell lymphoma and not from venetoclax Mantle cell lymphoma can affect the bowel. If the imaging findings do represent bowel perforation, this could be consistent with progression of the mantle cell lymphoma, hematology oncology in that scenario will suggest to pursue palliative and comfort care discussion General surgery evaluated the patient Due to patient's multiple medical comorbidities, persistent hyponatremia, surgical intervention is ill advised. Discussed with family and patient and they agrees with conservative management. May have ice chips and popsicles including medications. Objective - Vital Signs Vital signs: Vital Signs Temp 98.4 F 08/12/22 08:00 Pulse 91 08/12/22 08:00 Resp 20 08/12/22 08:00 BP 80/57 08/12/22 08:00 Pulse Ox 95 08/12/22 08:00 FiO2 Intake & Output 08/11/22 08/12/2208/12/23 18:59 06:59 18:59 Output Total 1000 400 Balance -1000 -400 Output: Urine 1000 400 Other: Voiding Method Urinal Urinal # Voids 3 - Labs CBC & Chem 7: 08/12/22 09:50 08/12/22 09:50 Labs: Abnormal Lab Results - Last 24 Hours (Table) 08/11/22 08/11/22 Range/Units 08:15 18:00 Lymphocytes # 0.1 L (1.0-4.8) k/uL Sodium 122 L (137-145) mmol/L Microbiology - Last 24 Hours (Table) 08/10/22 15:57 Nasal Screen MRSA/MSSA - Final Nasal Swab 08/09/22 23:30 Blood Culture - Preliminary Blood No Growth after 48 hours 08/09/22 23:30 Blood Culture - Preliminary Blood No Growth after 48 hours
[2022-08-12] MEDS ORDERED: SCOPOLAMINE 1 MG/72 HR PATCH TRANSDERM SCH (14:15)
[2022-08-12] MEDS: VANCOMYCIN 1,750 MG in SODIUM CHLORIDE 0.9% 500 ML 500 ML IVPB SCH (15:07)
[2022-08-12 17:06] LABS: Immunoglobulin A 31.2 mg/dL (60.0-350.0); Immunoglobulin M 4.8 mg/dL (40.0-280.0)
[2022-08-12] MEDS ORDERED: FILGRASTIM-SNDZ 480 MCG/0.8 ML SYRINGE SQ SCH (18:00)
[2022-08-12] MEDS: ASPIRIN 81 MG PO SCH (20:15)
[2022-08-12 20:25] LABS: Glucose, BF Source Ascites; Glucose, Body Fluid 55 mg/dL; LDH, Body Fluid Source Ascites; T. Protein, Body Fluid Source Ascites; Total Protein, Body Fluid 2780 mg/dL
[2022-08-12 20:45] LABS: Appearance,BF Cloudy
[2022-08-13] MEDS: PIPERACILLIN-TAZOBACTAM 3.375 GM in SODIUM CHLORIDE 0.9% 100 ML IVPB SCH ×2 (00:03→09:00)
[2022-08-13] MEDS: ONDANSETRON 4 MG/2 ML VIAL IVP SCH ×3 (00:03→11:11)
[2022-08-13] MEDS: FUROSEMIDE 10 MG/ML 4 ML VIAL IV SCH ×3 (00:03→09:07)
[2022-08-13] MEDS: PROCHLORPERAZINE INJ 10 MG/2 ML VIAL IVP PRN (03:00)
[2022-08-13] MEDS: MIDODRINE 5 MG TAB PO SCH ×2 (06:34→11:10)
[2022-08-13] MEDS: PANTOPRAZOLE 40 MG/10 ML VIAL IVP SCH (09:00)
--- NOTE | 2022-08-13 09:00 | XR ---
EXAMINATION TYPE: XR abdomen 2V DATE OF EXAM: 08/13/2022 CLINICAL HISTORY: Abdominal distention with nausea. Follow-up on pneumoperitoneum. TECHNIQUE: Supine and upright decubitus views of the abdomen are obtained. COMPARISON: CT abdomen and pelvis 2 days ago. FINDINGS: Persistent free air below the diaphragm. Exam suboptimal secondary to large body habitus. G as seen in nondistended stomach. Scattered gas seen in nondistended small and large bowel loops. Righ t flank prominence likely reflects some intra-abdominal ascites. Small right greater than left pleura l effusions redemonstrated. The osseous structures are intact. IMPRESSION: As above. Free air below diaphragm in the upper abdomen redemonstrated.
[2022-08-13] MEDS: LEVOTHYROXINE 88 MCG TAB PO SCH (09:01)
[2022-08-13] MEDS: METOPROLOL SUCCINATE (ER) 25 MG TAB.ER.24H PO SCH (09:01)
[2022-08-13] MEDS: SODIUM BICARBONATE TAB 650 MG TAB PO SCH (09:01)
[2022-08-13 09:03] VITALS: RESP 24
--- NOTE | 2022-08-13 09:47 | P.PN ---
Subjective Patient is seen in follow-up for hyponatremia and acute kidney injury. Sodium level 123 yesterday. Renal function worse from diuresis with creatinine 2.64 yesterday. Nolasco catheter placed for urinary retention. Blood pressure is on the lower side. Only received 1 dose of Lasix yesterday due to low blood pressure. Also received since yesterday. Family present at bedside. Vital signs are stable. General: No acute distress. HEENT: Head exam is unremarkable. LUNGS: No audible rhonchi or wheezes. HEART: Rate and Rhythm are regular. ABDOMEN: Obese. Nontender. EXTREMITITES: 1+ edema. Objective - Vital Signs Vital signs: Vital Signs Temp 98.8 F 08/13/22 08:00 Pulse 96 08/13/22 08:00 Resp 24 08/13/22 08:00 BP 92/66 08/13/22 08:00 Pulse Ox 93 L 08/13/22 08:00 FiO2 Intake & Output 08/12/22 08/13/22 08/13/22 18:59 06:59 18:59 Output Total 300 500 Balance -300 -500 Weight 102 kg Output: Urine 300 500 Other: Voiding Method Indwelling Catheter Indwelling Catheter # Bowel Movements 0 1 - Labs CBC & Chem 7: 08/12/22 09:50 08/12/22 09:50 Labs: Abnormal Lab Results - Last 24 Hours (Table) 08/12/22 08/12/22 08/12/22 Range/Units 09:50 09:50 09:50 WBC 1.1 L* (3.8-10.6) k/uL RBC 3.79 L (4.30-5.90) m/uL Hgb 11.9 L (13.0-17.5) gm/dL Hct 34.8 L (39.0-53.0) % RDW 15.9 H (11.5-15.5) % Plt Count 61 L (150-450) k/uL Neutrophils # 0.8 L (1.3-7.7) k/uL Lymphocytes # 0.2 L (1.0-4.8) k/uL Sodium 123 L (137-145) mmol/L Potassium 5.4 H (3.5-5.1) mmol/L Chloride 93 L (98-107) mmol/L Carbon Dioxide 19 L (22-30) mmol/L BUN 87 H (9-20) mg/dL Creatinine 2.64 H (0.66-1.25) mg/dL Glucose 110 H (74-99) mg/dL Calcium 7.8 L (8.4-10.2) mg/dL Total Protein 4.3 L (6.3-8.2) g/dL Albumin 2.2 L (3.5-5.0) g/dL IgG 220.0 L (700.0-1600.0) mg/dL IgA 31.2 L (60.0-350.0) mg/dL IgM 4.8 L (40.0-280.0) mg/dL Microbiology - Last 24 Hours (Table) 08/12/22 11:40 Gram Stain - Preliminary Ascites Fluid Body Fluid Culture - Preliminary 08/09/22 23:30 Blood Culture - Preliminary Blood No Growth after 72 hours 08/09/22 23:30 Blood Culture - Preliminary Blood No Growth after 72 hours 08/12/22 11:40 Anaerobic Culture - Preliminary Ascites Fluid 08/12/22 11:40 Acid Fast Bacilli Culture - Preliminary Ascites Fluid 08/12/22 11:40 Fungal Culture - Preliminary Ascites Fluid 08/10/22 15:57 Nasal Screen MRSA/MSSA - Final Nasal Swab Assessment and Plan Plan: Assessment: 1. Acute kidney injury secondary to ATN secondary to hypotension. Also component of urinary retention. No hydronephrosis noted on CAT scan. Renal function worse from diuresis. Creatinine 2.64 yesterday. 2. Hypervolemic hyponatremia. Sodium level 123 yesterday. 3. Mantle cell lymphoma being followed by oncology. 4. Volume overload. 5. Metabolic acidosis secondary to acute kidney injury. On oral bicarb. 6. Pancytopenia related to infection and chemotherapy. 7. Pneumonia on antibiotics. 8. Rule out CKD. Patient's creatinine in 2017 was 0.7 and was 2.6 this admission. No other records available in between. It is likely that patient has developed underlying chronic kidney disease from prior AKIs/medications. Plan: Maintain midodrine. Hold Lasix if systolic blood pressure less than 100. Maintain Nolasco catheter. Cortisol level not low. I did discuss with family and patient to potentially for renal replacement therapy if no improvement in renal function and his volume status. They wish to hold off at this time. Hospital is being considered. Prognosis guarded. Morning labs pending.
[2022-08-13 09:58] LABS: HCT 35.1 % (39.0-53.0); HGB 11.7 gm/dL (13.0-17.5); MCH 31.2 pg (25.0-35.0); MCHC 33.3 g/dL (31.0-37.0); MCV 93.9 fL (80.0-100.0); Mean Platelet Volume 10.5; RBC 3.74 m/uL (4.30-5.90); RDW 15.9 % (11.5-15.5)
[2022-08-13 10:00] LABS: WBC 1.2 k/uL (3.8-10.6)
[2022-08-13 10:01] LABS: Platelet Count 58 k/uL (150-450)
[2022-08-13 10:06] LABS: Albumin 2.1 g/dL (3.5-5.0); Calcium 7.8 mg/dL (8.4-10.2); Magnesium 2.6 mg/dL (1.6-2.3); Phosphorus 6.7 mg/dL (2.5-4.5); Total Bilirubin 1.1 mg/dL (0.2-1.3); Total Protein 4.2 g/dL (6.3-8.2)
[2022-08-13] MEDS ORDERED: VANCOMYCIN IV PER PHARMACY 1 EACH MISC MISCELLANE PRN (10:47)
[2022-08-13 11:15] VITALS: BP 81/48; PULSE 83; TEMP 97.6
--- NOTE | 2022-08-13 11:53 | P.PN ---
Subjective Progress Note Date: 08/13/22 76-year-old male with a history of mantle cell lymphoma, who typically is followed at the [facility]. 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 Recently, they've been having issues with low sodiums, as well as recurrent pleural effusions, requiring thoracentesis. The patient states that he's had at least 6 thoracentesis in the recent past. He came into the hospital because he was directed by his doctors there to be evaluated. The patient is not a particularly good historian and is seen in the emergency department, room 15. He is on room air. Is not receiving any IV fluids. His initial sodium was 119. His chest x-ray shows fluid overload pulmonary edema with small effusions, and a possible right lower lobe infiltrate. The patient also has a history of atrial fibrillation, and hypertension. He's had a cardiac ablation in the past. He is a lifelong nonsmoker. White count 2.8, hemoglobin 11.5, hematocrit 33.5, and a platelet count of 69,000. Sodium 120 potassium 4.9, chlorides 93, CO2 18, anion gap 9, BUN 78, creatinine 2.32. Urine was negative. Troponin was normal. The patient is seen today 08/11/2022 in follow-up on the selective care unit. He is currently resting comfortably in bed. Awake and alert in no acute distress. Maintaining O2 saturations in the 90s on room air. He's having some ongoing issues with nausea. His normal saline at 10 MLS per hour. Chest x-ray continues to show small to moderate right-sided pleural effusion was associated airspace opacities. Abdominal ultrasound revealed fluid seen in all 4 quadrants mostly in the right. Small ascites. Computed tomography scan of the abdomen and pelvis today reveals new free air present in the mid to upper abdomen. New adenopathy throughout the abdomen and pelvis involving peritoneum and retroperitoneum likely reflecting active lymphoma recurrence. New small right greater than left pleural effusions. New small to moderate amount of intraperitoneal ascites greatest in the right abdomen. Mild to moderate diffuse soft tissue anasarca. Findings consistent with fluid overload state. This is compared to a PET scan from 12/07/2021. Culture reveals no growth to date. White count 2.1. Hemoglobin 12.2. Platelets 64,000. Sodium improved to 123. Potassium 5.0. Bicarb 21. He wasn't 78. Creatinine 2.13. Glucose 133. Urine legionella antigen negative. Pro-calcitonin 1.52. He is currently on antibiotics in the form of vancomycin and Zosyn. IV Lasix 40 mg every 8 hours. Received Samsca yesterday. Currently in a -900 ML balance. Progress note dated 08/12/2022. This is a 76-year-old male seen in room 382. He was seen in consultation, a c ouple days ago, in the emergency department. The patient has most of his care at the [facility]. The patient came in with a diagnosis of mantle cell lymphoma, and his had multiple thoracentesis performed, for pleural effusion. In addition, he was very weak, and his sodium was 119. For this reason, he was told to come in to be evaluated. He's currently on room air. He is receiving vancomycin and Zosyn. His sodium today is 122. He seems to have quite a bit of abdominal ascites, and I will have interventional radiology consider doing a paracentesis abdominis, for diagnostic and therapeutic reasons. He should have the fluid analyzed for cytology, microbiology, and chemistry, specifically glucose, LDH, and protein. White count 1.1, hemoglobin 11.9, hematocrit 34.8, and platelet count 61,000. Sodium 123, potassium 5.4, chlorides 93, CO2 19, anion gap 11, BUN 87, creatinine 2.64. CT of the abdomen shows free air, adenopathy throughout the abdomen and pelvis consistent with active lymphoma recurrence, bilateral effusions, and possible significant intra- abdominal ascites. On today's evaluation of 08/13/2022, the patient is doing worse. He is more lethargic. He underwent a large polyp paracentesis yesterday and a total of 1.2 L of abdominal fluid/ascites was aspirated. Subsequent x-ray of the abdomen showed some free air within the abdomen probably related to the paracentesis. General surgery has been involved and they The patient nothing by mouth and no s urgical intervention is being contemplated. Meanwhile, his old work is showing worsening of his renal function. Creatinine is up to 3 with a BUN of 92 and a sodium level is at 126. The previous coronary 1.2 with a hemoglobin 11.7 and a platelet count of 61. Nephrology is on the case. The patient remains on IV Zosyn as an empiric antibiotic coverage. The patient is on Lasix 40 mg every 8 hours. The patient is also on zarxio. The family the bedside and they're considering hospice care at this point in time. He has been told that his prognosis was extremely poor based on his oncologist and [facility]. Objective - Vital Signs Vital signs: Vital Signs Temp 97.6 F 08/13/22 11:15 Pulse 83 08/13/22 11:15 Resp 24 08/13/22 11:15 BP 81/48 08/13/22 11:15 Pulse Ox 95 08/13/22 11:15 FiO2 Intake & Output 08/12/22 08/13/22 08/13/22 18:59 06:59 18:59 Output Total 300 500 Balance -300 -500 Weight 102 kg Output: Urine 300 500 Other: Voiding Method Indwelling Catheter Indwelling Catheter # Bowel Movements 0 1 - Exam No acute distress, oriented 3. Currently on room air. Mild conversational dyspnea. The patient is currently on 2 L of O2 nasal cannula HEENT examination is grossly unremarkable. Neck supple. Full range of motion. No adenopathy thyromegaly or neck vein distention. Cardiovascular examination reveals regular rhythm rate. S1-S2 normal. No S3 or S4. No discernible murmur noted. Heart sounds are distant. Lungs reveal mild bilateral rhonchi. No wheezes. No crackles. Breath sounds equal bilaterally. Room air saturation 95%. Abdomen distended, and somewhat soft. No tenderness on palpation. Bowel sounds are not noted. Extremities are intact. No cyanosis or clubbing. Mild edema is noted. Skin is without rash or lesion. Neurologic examination is brief but nonfocal. - Labs CBC & Chem 7: 08/13/22 09:05 08/13/22 09:05 Labs: Abnormal Lab Results - Last 24 Hours (Table) 08/12/22 08/12/22 08/13/22 Range/Units 09:50 09:50 09:05 WBC 1.2 L* (3.8-10.6) k/uL RBC 3.74 L (4.30-5.90) m/uL Hgb 11.7 L (13.0-17.5) gm/dL Hct 35.1 L (39.0-53.0) % RDW 15.9 H (11.5-15.5) % Neutrophils # 0.8 L (1.3-7.7) k/uL Lymphocytes # 0.2 L (1.0-4.8) k/uL Sodium (137-145) mmol/L Chloride (98-107) mmol/L Carbon Dioxide (22-30) mmol/L BUN (9-20) mg/dL Creatinine (0.66-1.25) mg/dL Glucose (74-99) mg/dL Calcium (8.4-10.2) mg/dL Phosphorus (2.5-4.5) mg/dL Magnesium (1.6-2.3) mg/dL Total Protein (6.3-8.2) g/dL Albumin (3.5-5.0) g/dL IgG 220.0 L (700.0-1600.0) mg/dL IgA 31.2 L (60.0-350.0) mg/dL IgM 4.8 L (40.0-280.0) mg/dL 08/13/22 Range/Units 09:05 WBC (3.8-10.6) k/uL RBC (4.30-5.90) m/uL Hgb (13.0-17.5) gm/dL Hct (39.0-53.0) % RDW (11.5-15.5) % Neutrophils # (1.3-7.7) k/uL Lymphocytes # (1.0-4.8) k/uL Sodium 126 L (137-145) mmol/L Chloride 96 L (98-107) mmol/L Carbon Dioxide 18 L (22-30) mmol/L BUN 92 H (9-20) mg/dL Creatinine 3.02 H (0.66-1.25) mg/dL Glucose 120 H (74-99) mg/dL Calcium 7.8 L (8.4-10.2) mg/dL Phosphorus 6.7 H (2.5-4.5) mg/dL Magnesium 2.6 H (1.6-2.3) mg/dL Total Protein 4.2 L (6.3-8.2) g/dL Albumin 2.1 L (3.5-5.0) g/dL IgG (700.0-1600.0) mg/dL IgA (60.0-350.0) mg/dL IgM (40.0-280.0) mg/dL Microbiology - Last 24 Hours (Table) 08/12/22 11:40 Gram Stain - Preliminary Ascites Fluid Body Fluid Culture - Preliminary 08/09/22 23:30 Blood Culture - Preliminary Blood No Growth after 72 hours 08/09/22 23:30 Blood Culture - Preliminary Blood No Growth after 72 hours 08/12/22 11:40 Anaerobic Culture - Preliminary Ascites Fluid 08/12/22 11:40 Acid Fast Bacilli Culture - Preliminary Ascites Fluid 08/12/22 11:40 Fungal Culture - Preliminary Ascites Fluid 08/10/22 15:57 Nasal Screen MRSA/MSSA - Final Nasal Swab Assessment and Plan Plan: Acute on chronic renal failure with progressive worsening of renal function Third spacing and signs of fluid overload currently on IV Lasix Generalized lethargy and weakness Weakness, with hyponatremia, chronic. History of recurrent pleural effusion, status post thoracentesis 6. History of mantle cell lymphoma, followed at [facility]. Abdominal ascites. The patient is post paracentesis with evacuation of 1.2 L of pleural fluid and the subsequent x-ray showing free air in the abdomen, probably related to procedure. Possible right lower lobe pneumonia. History of atrial fibrillation, with prior ablation. History of hypertension. Lifelong nonsmoker. Plan Extremely poor prognosis Family is at the bedside and they're considering and they're about to move into hospice care. Based on that, pulmonary critical care services will sign off.
[2022-08-13 12:16] LABS: Band Neutrophils % 4 %; Eosinophils # (M) 0.02 k/uL (0-0.7); Monocytes # (M) 0.07 k/uL (0-1.0); Neutrophils % (M) 63 %; Nucleated Red Blood Cells 0 /100 WBC (0-0); Total Cells Counted 100
[2022-08-13] MEDS ORDERED: IMMUNE GLOBULIN (GAMMAGARD) 20 GM in EMPTY BAG 1 BAG IV ONE (13:00)
--- NOTE | 2022-08-13 13:00 | P.CONS ---
History of Present Illness - Reason for Consult Consult date: 08/13/22 Hospice vs Palliative Care info Requesting physician: Tommy Shaw - History of Present Illness Mr. Arevalo is a 76-year-old gentleman with a past medical history significant for refractory mantle cell lymphoma recently started on Revlimid on 08/03/2022 who presents due to increased weakness. With regards to his mantle cell lymphoma, history was obtained by his and son at bedside. He was diagnosed approximately 3 years ago and was initially treated with ibrutinib. It appeared he then had disease progression, and was treated with bendamustine/rituximab. He was started on venetoclax more recently likely due to disease progression, but noted he has had progressive weakness over the past 6 weeks with multiple admissions at [facility] for hyponatremia. This appears to have been treated with fluid restriction along with salt tablets 3 times daily with improvement in his sodium to around the 130s. While he was admitted, he was not on venetoclax. It was unclear if the hyponatremia could have been possibly due to venetoclax, which is a noted side effect. During his admissions there, he noted to have been required up to 6 thoracenteses in the right lung. Is not clear if pleural fluid had positive cytology for mantle cell lymphoma. He did start taking Revlimid on 08/03/2022, which he feels he has tolerated well to date. He did have a PET/CT at [facility] on 08/08/2022 which showed interval disease progression compared to prior PET/CT on 04/17/2022 with development of FDG avid lymphadenopathy in the bilateral cervical region, mediastinum, and retroperitoneal lymphadenopathy. It was also noted he had a right lower lung base consolidation consistent with infection. He has been having progressive weakness over the past week along with intermittent nausea and feeling sluggish mentally. He denies any fevers, chills, cough, or dyspnea. Given the progressive weakness, he presented to the ED for additional management. Per Oncology's note, the case was discussed with multiple physicians, including Dr. Reddy, Dr. Altamirano, and primary backshoe person at [facility] Dr. Torres. She was concerned that his recurrent admissions with BJ and hyponatr emia could be due to disease progression from his mantle cell lymphoma and not from venetoclax. Given the same presentation off of venetoclax, he does appear that his current presentation with BJ and hyponatremia could be secondary to progression of his mantle cell lymphoma. Mantle cell lymphoma can affect the bowel. If the imaging findings do represent bowel perforation, this could be consistent with progression of the mantle cell lymphoma. Surgery would not be of benefit if this was related to mantle cell lymphoma.This was discussed with Dr. Taylor. If he does not have improvement in his clinical status overall, Dr. Torres was not opposed to the idea of comfort care or hospice. Review of Systems Constitutional: Reports as per HPI Past Medical History Past Medical History: Atrial Fibrillation, Cancer, Hypertension, Thyroid Disorder Additional Past Medical History / Comment(s): hyponatremia History of Any Multi-Drug Resistant Organisms: None Reported Past Surgical History: Cardiac Ablation, Hernia Repair Additional Past Surgical History / Comment(s): Port placed in left upper chest, last thoracentesis 08/08/22. Past Anesthesia/Blood Transfusion Reactions: No Reported Reaction Past Psychological History: No Psychological Hx Reported Smoking Status: Never smoker Past Alcohol Use History: None Reported Past Drug Use History: None Reported - Past Family History Mother Family Medical History: No Reported History Additional Family Medical History / Comment(s): Parkinsons Father Additional Family Medical History / Comment(s): Heart conditions Medications and Allergies Home Medications Medication Instructions Recorded Confirmed Type Aspirin EC [Ecotrin Low Dose] 81 mg PO HS 08/10/22 08/10/22 History Lenalidomide [Revlimid] 15 mg PO HS 08/10/22 08/10/22 History Levothyroxine Sodium [Synthroid] 88 mcg PO DAILY 08/10/22 08/10/22 History Metoprolol Succinate (ER) [Toprol 25 mg PO DAILY 08/10/22 08/10/22 History Xl] Multivit/Iron Sulf/Folic Acid 1 tab PO DAILY 08/10/22 08/10/22 History [Multivitamin with Iron] Sodium Chloride Tab 1 gm PO TID 08/10/22 08/10/22 History Terazosin HCl 10 mg PO DAILY 08/10/22 08/10/22 History Allergies Allergy/AdvReac Type Severity Reaction Status Date / Time No Known Allergies Allergy Verified 08/10/22 12:56 Physical Exam Vitals: Vital Signs Temp Pulse Resp BP Pulse Ox 08/13/22 11:15 97.6 F 83 24 81/48 95 08/13/22 08:00 98.8 F 96 24 92/66 93 L 08/13/22 03:08 88 22 91/60 98 08/13/22 00:00 94 21 113/98 98 08/12/22 20:00 97.6 F 93 19 108/67 96 08/12/22 15:31 97.5 F L 91 17 92/56 94 L Intake and Output 08/12/22 08/13/22 08/13/22 22:59 06:59 14:59 Output Total 100 500 Balance -100 -500 Output: Urine 100 500 Other: Voiding Method Indwelling Catheter Indwelling Catheter Indwelling Catheter # Bowel Movements 0 1 Weight 102 kg General: Well developed, well nourished. Chronically ill appearing HEENT: Head is atraumatic, normocephalic. Lungs: Tachypneic, respirations Labored, On 2L NC Abdomen/GI: Distended, obese : Nolasco catheter present draining clear yellow urine Musculoskeletal/ Extremities: + generalized weakness, +1 LE Edema Skin: Warm and dry Neurologic: Lethargic Results CBC & Chem 7: 08/13/22 09:05 08/13/22 09:05 Labs: Abnormal Lab Results - Last 24 Hours (Table) 08/12/22 08/12/22 08/13/22 Range/Units 09:50 09:50 09:05 WBC 1.2 L* (3.8-10.6) k/uL RBC 3.74 L (4.30-5.90) m/uL Hgb 11.7 L (13.0-17.5) gm/dL Hct 35.1 L (39.0-53.0) % RDW 15.9 H (11.5-15.5) % Plt Count 58 L (150-450) k/uL Neutrophils # 0.8 L (1.3-7.7) k/uL Neutrophils # (Manual) 0.80 L (1.3-7.7) k/uL Lymphocytes # 0.2 L (1.0-4.8) k/uL Lymphocytes # (Manual) 0.30 L (1.0-4.8) k/uL Sodium (137-145) mmol/L Chloride (98-107) mmol/L Carbon Dioxide (22-30) mmol/L BUN (9-20) mg/dL Creatinine (0.66-1.25) mg/dL Glucose (74-99) mg/dL Calcium (8.4-10.2) mg/dL Phosphorus (2.5-4.5) mg/dL Magnesium (1.6-2.3) mg/dL Total Protein (6.3-8.2) g/dL Albumin (3.5-5.0) g/dL IgG 220.0 L (700.0-1600.0) mg/dL IgA 31.2 L (60.0-350.0) mg/dL IgM 4.8 L (40.0-280.0) mg/dL 08/13/22 Range/Units 09:05 WBC (3.8-10.6) k/uL RBC (4.30-5.90) m/uL Hgb (13.0-17.5) gm/dL Hct (39.0-53.0) % RDW (11.5-15.5) % Plt Count (150-450) k/uL Neutrophils # (1.3-7.7) k/uL Neutrophils # (Manual) (1.3-7.7) k/uL Lymphocytes # (1.0-4.8) k/uL Lymphocytes # (Manual) (1.0-4.8) k/uL Sodium 126 L (137-145) mmol/L Chloride 96 L (98-107) mmol/L Carbon Dioxide 18 L (22-30) mmol/L BUN 92 H (9-20) mg/dL Creatinine 3.02 H (0.66-1.25) mg/dL Glucose 120 H (74-99) mg/dL Calcium 7.8 L (8.4-10.2) mg/dL Phosphorus 6.7 H (2.5-4.5) mg/dL Magnesium 2.6 H (1.6-2.3) mg/dL Total Protein 4.2 L (6.3-8.2) g/dL Albumin 2.1 L (3.5-5.0) g/dL IgG (700.0-1600.0) mg/dL IgA (60.0-350.0) mg/dL IgM (40.0-280.0) mg/dL Microbiology - Last 24 Hours (Table) 08/12/22 11:40 Gram Stain - Preliminary Ascites Fluid Body Fluid Culture - Preliminary 08/09/22 23:30 Blood Culture - Preliminary Blood No Growth after 72 hours 08/09/22 23:30 Blood Culture - Preliminary Blood No Growth after 72 hours 08/12/22 11:40 Anaerobic Culture - Preliminary Ascites Fluid 08/12/22 11:40 Acid Fast Bacilli Culture - Preliminary Ascites Fluid 08/12/22 11:40 Fungal Culture - Preliminary Ascites Fluid Chest x-ray: report reviewed Abdominal x-ray: report reviewed CT scan - abdomen: report reviewed CT scan - pelvis: report reviewed Assessment and Plan Assessment: Social * Occupation - Retired * Marital status - to , Poly * Children/grandchildren - 3 adult sons * Residence - [address] * Who do you reside with - * ETOH - None reported * Tobacco - Never * Illicit drugs - None reported Plan: Summary/Goals - The patient is on his side and is dyspneic and lethargic. He appears to be uncomfortable. His , all 3 sons, and a [id number] are present. Information provided regarding palliative care and hospice ph ilosophies and services. The family stated that they have already talked and decided that they would like to make him hospice. The patient is also hypotensive 81/48 MAP 59. The family would like to keep the patient here for hospice in fear of him possible passing away on the way home. Hospice co nsulted. Hospice staff and critical care unit manager updated with situation. Recommendations - GIP Advanced Directives - None on file, family to bring in Code Status - Full code Thank you for this consultation Georgie Yung [facility] Palliative Care [facility] [id number] Email: [email or web address]
--- NOTE | 2022-08-13 13:38 | P.DS ---
Providers Date of admission: 08/10/22 02:08 Expected date of discharge: 08/13/22 Attending physician: Oli Armando MD Consults: 08/10/22 00:27 Consult Physician Stat Consulting Provider: Anders Gutierrez Consult Reason/Comments: hyponateremia Do you want consulting provider notified?: Already Contacted 08/10/22 02:06 Consult Physician Stat Consulting Provider: Hector Martínez Consult Reason/Comments: pneumonia and recurrent pleural effusion Do you want consulting provider notified?: Already Contacted 08/10/22 10:42 Consult Physician Routine Consulting Provider: Luke Macdonald Consult Reason/Comments: Mantle cell Lymphoma, thrombocytopenia Do you want consulting provider notified?: Yes 08/11/22 11:18 Consult Physician Urgent Consulting Provider: Ava Altamirano Consult Reason/Comments: Free air seen on abdomen/pelvis CT, abdominal pain Do you want consulting provider notified?: Yes 08/12/22 13:49 Consult to Palliative Care Routine Consulting Provider: Georgie Yung Consult Reason/Comments: palliative care vs hospice Do you want consulting provider notified?: Yes Primary care physician: Physician Nonstaff Hospital Course: Discharge diagnoses; Hyponatremia, acute on chronic Intra-abdominal free air Pneumoperitoneum Hyperkalemia Acute kidney injury Pancytopenia Bacterial pneumonia Generalized weakness History of recurrent pleural effusion, status post thoracentesis 6. History of mantle cell lymphoma, followed at [facility]. Possible right lower lobe pneumonia. History of atrial fibrillation, with prior ablation. 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 Patient normally follows at [facility] for his lymphoma. Patient has history of recurrent pleural effusions requiring thoracentesis, last thoracentesis was done 2 days ago. Patient was recently discharged from [facility] on 08/02/22.He had a PET scan completed at [facility] earlier this week in which results do show interval progression of lymphadenopathy and worsening of his lymphoma. He does report generalized weakness and a mild tremor which he attributes to his hyponatremia. noticed that the patient had swelling of lower extremities Chest x-ray done showed right basilar air space opacities could represent atelectasis versus developing pneumonia Initial lab work done showed a white count of 4.1, hemoglobin 12, platelet count 71, sodium 119, potassium 5.9, creatinine 2.60. Patient was admitted to internal medicine team for further evaluation and treatment 08/11. Patient seen and examined. Patient overnight having nausea with vomiting, also complaining of abdominal cramps. Sodium improved to 123, potassium is 5 this morning. Hematology oncology order CT abdominal and pelvis which showed free air in the abdominal, patient is still having abdominal cramps, patient made nothing by mouth. General surgery consulted 08/12. Patient seen and examined. Patient was seen by general surgery for concern of free air in the abdomin. Gen. surgery had extensive discussion with patient and patient's family as well as oncology, at this time plan is for patient to be watched closely, conservative approach is ideal, no surgical intervention in the meantime, patient will be kept nothing by mouth with popsicles. Patient blood pressures have been on the lower side, hold Lopressor for blood pressure less than 90 systolic. Discussed with patient's family regarding his poor prognosis and overall condition, family are open to discussion about hospice after talking with hematology 08/13. Patient seen and examined. Patient is not doing well, had a long discussion with patient's family Members, explained to them patient's poor prognosis, hematology oncology has also advocated for hospice. Patient family at this time are leaning towards hospice, hospice team consulted, patient is appropriate for inpatient hospice care, patient be discharged to inpatient hospice. PHYSICAL EXAMINATION: GENERAL: The patient is lethargic not in any acute distress. Well developed, well nourished. HEENT: Pupils are round and equally reacting to light. EOMI. No scleral icterus. No conjunctival pallor. Normocephalic, atraumatic. No pharyngeal erythema. No thyromegaly. CARDIOVASCULAR: S1 and S2 present. No murmurs, rubs, or gallops. Tachycardia PULMONARY: Tachypneic, coarse breath some bilaterally ABDOMEN: Distended, no tenderness, bowel sounds are sluggish MUSCULOSKELETAL: No joint swelling or deformity. EXTREMITIES: No cyanosis, clubbing, or pedal edema. NEUROLOGICAL: Gross neurological examination did not reveal any focal deficits. Patient is lethargic SKIN: No rashes. Patient Condition at Discharge: Poor Plan - Discharge Summary Discharge Rx Participant: Yes New Discharge Prescriptions: No Action RX: Terazosin HCl 10 mg PO DAILY Multivit/Iron Sulf/Folic Acid [Multivitamin with Iron] 1 tab PO DAILY Lenalidomide [Revlimid] 15 mg PO HS RX: Sodium Chloride Tab 1 gm PO TID Levothyroxine Sodium [Synthroid] 88 mcg PO DAILY Aspirin EC [Ecotrin Low Dose] 81 mg PO HS Metoprolol Succinate (ER) [Toprol Xl] 25 mg PO DAILY Discharge Medication List Aspirin EC [Ecotrin Low Dose] 81 mg PO HS 08/10/22 [History] Lenalidomide [Revlimid] 15 mg PO HS 08/10/22 [History] Levothyroxine Sodium [Synthroid] 88 mcg PO DAILY 08/10/22 [History] Metoprolol Succinate (ER) [Toprol Xl] 25 mg PO DAILY 08/10/22 [History] Multivit/Iron Sulf/Folic Acid [Multivitamin with Iron] 1 tab PO DAILY 08/10/22 [History] RX: Sodium Chloride Tab 1 gm PO TID 08/10/22 [History] RX: Terazosin HCl 10 mg PO DAILY 08/10/22 [History] Follow up Appointment(s)/Referral(s): Chelle Cruz FNPBC [Family Provider] - 1-2 days Discharge Disposition: DISCH TO [facility]
--- NOTE | 2022-08-13 14:49 | P.PN ---
Subjective Progress Note Date: 08/13/22 Principal diagnosis: weakness, hx mantle cell lymphoma At today's visit patient's condition has worsened. Patient is lethargic and breathing is tachypneic. Patient reports shortness of breath. Denies pain. Spoke with and sons in length today regarding patient's current condition and prognosis. Spoke with palliative/hospice team, who planned to speak with patient and family today. states that she has spoke with her family and they would like to pursue hospice care, but she reports that she is nervous to take him home because she is unable to take care of him by herself. Objective - Vital Signs Vital signs: Vital Signs Temp 97.6 F 08/13/22 11:15 Pulse 83 08/13/22 11:15 Resp 24 08/13/22 11:15 BP 81/48 08/13/22 11:15 Pulse Ox 95 08/13/22 12:37 FiO2 Intake & Output 08/12/22 08/13/22 08/13/22 18:59 06:59 18:59 Output Total 300 500 Balance -300 -500 Weight 102 kg Output: Urine 300 500 Other: Voiding Method Indwelling Catheter Indwelling Catheter # Bowel Movements 0 1 - Constitutional General appearance: Present: average body habitus, mild distress - EENT Eyes: Present: anicteric sclerae, EOMI ENT: Present: hearing grossly normal - Respiratory Details: Breathing labored Respiratory: bilateral: rales, wheezing - Cardiovascular Rhythm: regular Heart sounds: normal: S1, S2 Abnormal Heart Sounds: Absent: systolic murmur, diastolic murmur, rub, S3 Gallop, S4 Gallop, click, other - Peripheral edema leg Peripheral Edema: bilateral: 2+ - Gastrointestinal General gastrointestinal: Present: distended - Integumentary Integumentary: Present: normal - Neurologic Neurologic Comment(s): Lethargic and weak - Musculoskeletal Musculoskeletal: Present: generalized weakness - Labs CBC & Chem 7: 08/13/22 09:05 08/13/22 09:05 Labs: Abnormal Lab Results - Last 24 Hours (Table) 08/12/22 08/13/22 08/13/22 Range/Units 09:50 09:05 09:05 WBC 1.2 L* (3.8-10.6) k/uL RBC 3.74 L (4.30-5.90) m/uL Hgb 11.7 L (13.0-17.5) gm/dL Hct 35.1 L (39.0-53.0) % RDW 15.9 H (11.5-15.5) % Plt Count 58 L (150-450) k/uL Neutrophils # (Manual) 0.80 L (1.3-7.7) k/uL Lymphocytes # (Manual) 0.30 L (1.0-4.8) k/uL Sodium 126 L (137-145) mmol/L Chloride 96 L (98-107) mmol/L Carbon Dioxide 18 L (22-30) mmol/L BUN 92 H (9-20) mg/dL Creatinine 3.02 H (0.66-1.25) mg/dL Glucose 120 H (74-99) mg/dL Calcium 7.8 L (8.4-10.2) mg/dL Phosphorus 6.7 H (2.5-4.5) mg/dL Magnesium 2.6 H (1.6-2.3) mg/dL Total Protein 4.2 L (6.3-8.2) g/dL Albumin 2.1 L (3.5-5.0) g/dL IgG 220.0 L (700.0-1600.0) mg/dL IgA 31.2 L (60.0-350.0) mg/dL IgM 4.8 L (40.0-280.0) mg/dL Microbiology - Last 24 Hours (Table) 08/12/22 11:40 Gram Stain - Preliminary Ascites Fluid Body Fluid Culture - Preliminary 08/09/22 23:30 Blood Culture - Preliminary Blood No Growth after 72 hours 08/09/22 23:30 Blood Culture - Preliminary Blood No Growth after 72 hours 08/12/22 11:40 Anaerobic Culture - Preliminary Ascites Fluid 08/12/22 11:40 Acid Fast Bacilli Culture - Preliminary Ascites Fluid 08/12/22 11:40 Fungal Culture - Preliminary Ascites Fluid - Imaging and Cardiology Abdominal x-ray: report reviewed Assessment and Plan (1) Hyponatremia Status: Acute Priority: High Code(s): E87.1 - HYPO-OSMOLALITY AND HYPONATREMIA SNOMED Code(s): 81625297 (2) Mantle cell lymphoma Status: Acute Priority: High Code(s): C83.10 - MANTLE CELL LYMPHOMA, UNSPECIFIED SITE SNOMED Code(s): 705869628 (3) Pancytopenia Status: Acute Priority: High Code(s): D61.818 - OTHER PANCYTOPENIA SNOMED Code(s): 616291729 (4) Right lower lobe pneumonia Status: Acute Priority: High Code(s): J18.9 - PNEUMONIA, UNSPECIFIED ORGANISM SNOMED Code(s): 909022022 (5) Ascites Status: Acute Priority: High Code(s): R18.8 - OTHER ASCITES SNOMED Code(s): 262254115 Plan: Refractory mantle cell lymphoma -Noted to have refractory disease with disease progression following ibrutinib and bendamustine/rituximab -He was started on venetoclax, but has had multiple admissions at [facility] over the past 6 weeks due to progressive weakness and hyponatremia -Unclear if hyponatremia was secondary to venetoclax -He was transitioned to Revlimid, which she has been taking for approximately 1 week prior to admission -PET/CT at [facility] on 08/08/2022 noted interval disease progression from PET on 04/17/2022 along with right lower lobe consolidation concerning for infection -Given the concern for pneumonia along with recurrent hyponatremia, I did recommend holding Revlimid at this time due to concern for potential exacerbation of infection -CT abdomen/pelvis without contrast originally ordered to assess for obstructive uropathy given retroperitoneal lymphadenopathy noted intra-abdominal free air -Clinically, there is no evidence of peritonitis, rebound, or guarding -Case was discussed with multiple physicians, including Dr. Reddy, Dr. Altamirano, and primary activities assistant at [facility] Dr. Torres -Based on my discussion with Dr. Torres, she was concerned that his recurrent admissions with BJ and hyponatremia could be due to disease progression from his mantle cell lymphoma and not from venetoclax -Given the same presentation off of venetoclax, he does appear that his current presentation with BJ and hyponatremia could be secondary to progression of his mantle cell lymphoma -Mantle cell lymphoma can affect the bowel. If the imaging findings do represent bowel perforation, this could be consistent with progression of the mantle cell lymphoma -Based on my discussion with Dr. Torres, surgery would not be of benefit if this was related to mantle cell lymphoma -This was discussed with Dr. Altamirano -If he does not have improvement in his clinical status overall, Dr. Torres was not opposed to the idea of comfort care or hospice -This was discussed with Mr. Arevalo's family in depth again today. states that she has spoken with family and they would like to pursue hospice care. Spoke with palliative care/hospice team this morning, and they will be seeing family today to further discuss care options. and sons were agreeable with plan Hyponatremia, BJ -Improvement in sodium -Sodium at 126. Creatinine 3.0, -Continue management with nephrology Pneumonia, likely healthcare acquired -Has had admissions at [facility] over the past 6 weeks -Initially started on on ceftriaxone and azithromycin, but was broadened to vancomycin and Zosyn given the risk for MRSA and drug-resistant organisms Pancytopenia -Likely secondary to Revlimid along with superimposed pneumonia -Holding Revlimid as above -Granix started yesterday for WBC support, ANC 800 -IgG, IgA, IgM revealed deficiencies. 1 dose IVIG ordered. Will start with dose reduction due to worsening kidney function, and will consider additional doses based on creatinine levels -Transfuse for hemoglobin less than 7 and/or platelet count less than 10,000 or bleeding Ascites: -Paracentesis yesterday. 1.2 L removed, procedure had to be suspended due to drop in blood pressure. -Flow cytometry and cytology ordered on peritoneal fluid
--- NOTE | 2022-08-13 23:38 | P.PN ---
Progress Note - Text Progress Note Date: 08/13/22 Patient had paracentesis yesterday. Abdominal x-ray independently reviewed demonstrates persistent free air. Patient and family agreeable for hospice due to multiple comorbidities. General surgery will sign off.
--- NOTE | 2022-08-16 06:45 | CDI ---
Documentation Clarification Form Date: 08/16/22 From: Minerva Cabezas Admit Date: 08/10/2022 2:08:00 AM Patient Name: Sumit Arevalo Visit Number: [id number] Discharge Date: 08/13/2022 12:49:00 PM ATTENTION: The Clinical Documentation Specialists (CDI) and [facility] Coding Staff appreciate your assistance in clarifying documentation. Please respond to the clarification below the line at the bottom and electronically sign. The CDI & [facility] Coding staff will review the response and follow-up if needed. Please note: Queries are made part of the Legal Health Record. If you have any questions, please contact the author of this message via ITS. Dr. Anders Gutierrez, Unspecified CKD is documented in your 08/12 & 08/13 progress note. Additional clarification regarding the stage of CKD is requested. History/Risk Factors: Bacterial pneumonia-nosocomial, Mantle cell lymphoma, hypervolemic hyponatremia, pancytopenia due to infection and chemotherapy Patients Historical CR: In 2017 0.7 Clinical Indicators: It is likely that patient has developed underlying chronic kidney disease from prior AKIs/medication Current BUN: 81, 78, 78, 87, 92 Current CR: 2.60, 2.32, 2.13, 2.64, 3.02 Current GFR: 23, 27, 30, 23, 19 Treatment: Hold Lasix if systolic BP < 100, repeat Samsca 15 mg once a day, check bladder scan for urinary retention, add oral bicarb, Lokelma 10 mg once a day, hold off at this time on renal replacement therapy Please clarify the stage of the CKD, if known: [ ] CKD Stage 1 (GFR > 90) [ ] CKD Stage 2 (GFR 60-89) [ ] CKD Stage 3 (GFR 30-59) [ ] CKD Stage 3a (GFR 45-59) [ ] CKD Stage 3b (GFR 30-44) [ ] CKD Stage 4 (GFR 15-29) [ ] CKD Stage 5 (GFR <15) [ ] ESRD [ ] Other, please specify [x ] Unable to determine MTDD
== END 2022-08-13 12:49 | disposition hospice, inpatient (51) | DRG 193 ==
LOC: EC 17:45 → 3SCARD 08-10 02:08
PROVIDERS: ADMIT Internal Medicine; ATTEND Internal Medicine
PROC: 0W9G3ZX Drainage of Peritoneal Cavity, Percutaneous Approach, Diagnostic (ICD-10-PCS; principal; 2022-08-10)
DX: J15.9 Unspecified bacterial pneumonia (principal); D61.810 Antineoplastic chemotherapy induced pancytopenia; N17.0 Acute kidney failure with tubular necrosis; C83.10 Mantle cell lymphoma, unspecified site; R18.8 Other ascites; J81.1 Chronic pulmonary edema; J90 Pleural effusion, not elsewhere classified; E87.1 Hypo-osmolality and hyponatremia; K66.8 Other specified disorders of peritoneum; I95.9 Hypotension, unspecified; I13.10 Hypertensive heart and chronic kidney disease without heart failure, with stage 1 through stage 4 chronic kidney disease, or unspecified chronic kidney disease; E66.01 Morbid (severe) obesity due to excess calories; I48.91 Unspecified atrial fibrillation; Z51.5 Encounter for palliative care; N18.9 Chronic kidney disease, unspecified; Y95 Nosocomial condition; E87.70 Fluid overload, unspecified; E87.5 Hyperkalemia; T45.1X5A Adverse effect of antineoplastic and immunosuppressive drugs, initial encounter; I45.10 Unspecified right bundle-branch block; I44.0 Atrioventricular block, first degree; E86.0 Dehydration; E03.9 Hypothyroidism, unspecified; R59.1 Generalized enlarged lymph nodes; R33.9 Retention of urine, unspecified; Z68.35 Body mass index [BMI] 35.0-35.9, adult; Z79.890 Hormone replacement therapy; Z79.82 Long term (current) use of aspirin; Z79.899 Other long term (current) drug therapy
CPT/HCPCS: 36415; 49083; 51798; 71046; 74019; 74176; 76705; 80048; 80053; 80202; 81003; 82330; 82533; 82784; 82945; 83605; 83615; 83735; 83930; 83935; 84100; 84145; 84157; 84295; 84443; 84484; 85025; 85610; 85730; 87040; 87070; 87075; 87077; 87102; 87116; 87186; 87205; 87206; 87449; 88108; 88184; 88185; 88305; 89050; 93005; 94760; 96361; 96374; 96375; 96376; 99291

== ENCOUNTER 2022-08-13 12:39 | Inpatient (IN) | payer MEDICAID ==
[2022-08-13] MEDS ORDERED: ACETAMINOPHEN SUPPOSITORY 650 MG SUPP RECTAL PRN (12:43)
[2022-08-13] MEDS ORDERED: ATROPINE OPHTH SOLN 1% 5ML BTL SUBLINGUAL PRN (12:43)
[2022-08-13] MEDS ORDERED: LORazepam 2 MG/ML INJ IV PRN (12:43)
[2022-08-13] MEDS ORDERED: MORPHINE SULFATE 4 MG/ML SYRINGE IV PRN (12:43)
[2022-08-13] MEDS ORDERED: ONDANSETRON 4 MG/2 ML VIAL IVP PRN ×2 (12:43→18:12)
[2022-08-13] MEDS ORDERED: GLYCOPYRROLATE 0.2 MG/ML 2 ML VIAL IVP PRN (12:43)
[2022-08-13] MEDS ORDERED: SCOPOLAMINE 1 MG/72 HR PATCH TRANSDERM SCH (13:30)
[2022-08-13] MEDS ORDERED: MORPHINE SULFATE (100 MG/2 ML) 100 MG in SODIUM CHLORIDE 0.9% 100 ML IV SCH (13:30)
[2022-08-13 18:04] VITALS: PULSE 111; RESP 26
== END 2022-08-14 00:53 | disposition expired | DRG 951 ==
LOC: 3SCARD 12:52
PROVIDERS: ADMIT Internal Medicine; ATTEND Internal Medicine
DX: Z51.5 Encounter for palliative care (principal); C83.10 Mantle cell lymphoma, unspecified site; E87.1 Hypo-osmolality and hyponatremia; C79.89 Secondary malignant neoplasm of other specified sites; N17.9 Acute kidney failure, unspecified; D61.818 Other pancytopenia; I48.91 Unspecified atrial fibrillation; E87.5 Hyperkalemia; Z86.79 Personal history of other diseases of the circulatory system; Z87.19 Personal history of other diseases of the digestive system; Z79.890 Hormone replacement therapy